=== PATIENT | male | born 1985 | race Caucasian/White ===

== ENCOUNTER 2020-01-21 12:18 | Emergency (ER) | payer OTHER, MEDICAID, SELFPAY ==
[2019-11-10 13:48] VITALS: BMI 23.7
[2020-01-21 12:21] VITALS: BP 128/78; PULSE 84; RESP 16; TEMP 36.7; O2SAT 100; BMI 22.1
--- NOTE | 2020-01-21 12:41 | CT_ITS ---
STUDY: CT BRAIN WITHOUT CONTRAST REASON FOR EXAM: Male, 34 years old. HEADACHE, SPACED OUT X 2 DAYS. H/O SEIZURES. RADIATION DOSAGE (If Supplied By Facility): CTDIvol = ( 44.99 ) mGy, DLP = ( 745.49 ) mGycm TECHNIQUE: Transaxial CT imaging of the brain was performed without administration of intravenous contrast material. Coronal and sagittal reconstructions were performed. Individualized dose optimization techniques were used for this CT. COMPARISON: None. FINDINGS: Normal soft tissue structures. Normal calvarium. Normal size ventricles and extra-axial spaces for the patient''s age. Normal white matter tracts of the cerebral hemispheres. Normal basal ganglia and thalami. Normal brainstem. Normal cerebellum. There is no intracranial hemorrhage. There are no findings of an acute ischemic infarction. 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 CT/Brain/Head without Contrast IMPRESSION: 1. Normal unenhanced CT scan of the brain. 2. 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 Electronically Signed: Holden Salvador MD at 13:32 EDT , Service support ,
--- NOTE | 2020-01-21 12:56 | ED.VIS.GEN ---
History of Present Illness Chief Complaint: Headache Informant: Patient, Significant Other Narrative: 34-year-old male with past medical history of TBI and epilepsy presents with concern for headache. States that over the past 2 to 3 days he has had a headache which she describes as diffuse and intermittent. Denies any vision change or neck pain. Denies any fever or chills. That his has told him that he is also been spacey. States that in the past his antiseizure medication has been the cause of these symptoms. Spoke with his neurologist Dr. Stanley in [place] about this earlier in the week who advised him that if he had continued symptoms he should follow at an urgent care or emergency department. Past Medical History - Allergies and Home Meds Allergies/Adverse Reactions: Allergies carbamazepine Allergy (Verified 01/21/20 12:21) NEEDS FOLLOW-UP NSAIDS (Non-Steroidal Anti-Inflamma Allergy (Verified 01/21/20 12:21) Upset Stomach phenytoin Allergy (Verified 01/21/20 12:21) NEEDS FOLLOW-UP topiramate Allergy (Verified 01/21/20 12:21) NEEDS FOLLOW-UP LOXAGATE SODIUM Allergy (Uncoded 01/21/20 12:21) NEEDS FOLLOW-UP Primary Care Physician: Bruce Lin MD [STAFF PHYSICIAN] - As soon as possible Past Medical History: - - Epilepsy Surgical History: no surgical history Lives: Spouse/ Significant Other Smoking Status: Current every day smoker Alcohol: None Drugs: None Review of Systems General: Denies: Chills, Fever, Sweats Eyes: Denies: Visual changes - bilaterally, Diplopia ENT: Denies: Rhinorrhea, Sore throat Cardiovascular: Denies: Chest pain, Palpitations Respiratory: Denies: Dyspnea, Cough, Dyspnea on exertion Gastrointestinal: Denies: Abdominal pain, Nausea, Vomiting, Diarrhea, Melena, Hematochezia Genitourinary: Denies: Dysuria, Hematuria, Frequency Musculoskeletal: Denies: Back pain, Extremity Pain Skin: Denies: Rash, Wounds Neurological: Reports: Headache. Denies: Weakness, Numbness Physical Exam Vital Signs/Narrative: Vital Signs Temp Pulse Resp BP Pulse Ox 01/21/20 12:21 98.1 F 84 16 128/78 H 100 General: Well nourished, Well developed, No Acute Distress Head: Normocephalic, Atraumatic Eyes: Perrl, EOMI ENT: Moist mucous membranes, No rhinorrhea Neck: Supple, Nontender Cardiovascular: Regular rate, Regular rhythm, No murmurs Respiratory: No distress, CTA bilaterally, Chest nontender Abdomen: Soft, Nontender, Nondistended, Normal bowel sounds Back: Nontender, Normal Inspection Extremities: Nontender, No edema Skin: Normal color, No rash Neurological: Alert, Oriented x3, Cranial nerves II-XII grossly intact, Normal Strength, Normal Sensation Psychological: Normal affect, Normal Mood Diagnostic/Tx/Re-eval Clinical Impression(s) from Imaging Studies Brain CT 01/21/20 12:41 IMPRESSION: 1. Normal unenhanced CT scan of the brain. 2. 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 Electronically Signed: Holden Salvador MD at 13:32 EDT , Service support , Laboratory Data 01/21/20 01/21/20 13:10 13:10 WBC 7.9 RBC 4.84 Hgb 15.9 Hct 46.1 MCV 95.2 H MCH 32.9 H MCHC 34.5 RDW Std Deviation 41.6 RDW Coeff of Glenny 12.1 Plt Count 200 MPV 9.7 Immature Gran % (Auto) 0.300 Neut % (Auto) 74.9 H Lymph % (Auto) 16.3 L [place] % (Auto) 6.8 Eos % (Auto) 1.4 Baso % (Auto) 0.3 Absolute Neuts (auto) 5.9 Absolute Lymphs (auto) 1.29 Nucleated RBC % 0 Sodium 139 Potassium 3.4 L Chloride 109 H Carbon Dioxide 26.0 Anion Gap 4 L BUN 12 Creatinine 1.21 Estim Creat Clear Calc 89.11 Est GFR (MDRD) Af Amer 87 Est GFR (MDRD) Non-Af 72 BUN/Creatinine Ratio 9.9 L Glucose 96 Calcium 8.7 Magnesium 2.2 - Medical Decision Making Patient appears well nontoxic. No focal neurologic deficit. CT brain negative. Lab work within normal limits. Spoke with neurologist on-call for Dr. Tse who is near [place]. She stated that based upon their records he had called 1 month ago asking for a new neurologist in the area which he lives now, [place]. Patient does confirm this on further discussion. Patient has been taking Tylenol at home. He cannot take NSAIDs because it upsets his stomach. I did advise him to take Tylenol 3 times a day for the next 3 days. I advised him on continued p.o. hydration. Patient has adequate supply of Keppra as well as zonisamide. I did give him neurologic follow-up in the area and asked him to return if there is any concern for breakthrough seizures. Patient was agreeable this plan and was discharged home in stable condition. ED Disposition - Plan for ED Patient: Disposition: Home or Assisted Living Diagnosis: Headache, History of seizure disorder Instructions: ED Headache Unspecified Referrals: Bruce Lin MD [STAFF PHYSICIAN] - As soon as possible
[2020-01-21 13:30] LABS: Absolute Lymphocyte Count 1.29 X10^3/uL (0.83-4.51); Absolute Neutrophil Count 5.9 X10^3/uL (2.0-7.7); Basophil# 0.02 X10^3/uL; Basophil% 0.3 % (0-1); Eosinophil# 0.11 X10^3/uL; Eosinophils% 1.4 % (0-5); Hematocrit 46.1 % (40-54); Hemoglobin 15.9 g/dL (13.0-16.5); Lymphocyte # 1.29 X10^3/ul (4.0); Lymphocyte % 16.3 % (19-41); Mean Corp Hgb Conc 34.5 g/dL (32-36); Mean Corpuscular Hgb 32.9 pg (27.0-32.0); Mean Corpuscular Volume 95.2 fL (80-94); Mean Platelet Vol. 9.7 fl (6.2-12.0); Monocyte# 0.54 X10^3/uL; Monocyte% 6.8 % (0-10); NRBC Flagged by Analyzer 0 % (0-5); Neutrophil # 5.91 X10^3/uL (2.7-7.7); Neutrophil % 74.9 % (47-70); Platelet Count 200 K/mm3 (150-450); RBC Distribution Width CV 12.1 % (11.6-14.6); RBC Distribution Width SD 41.6 fl (35.1-43.9); Red Blood Count 4.84 M/mm3 (4.6-6.2); White Blood Count 7.9 K/mm3 (4.4-11.0)
[2020-01-21 13:40] LABS: Anion Gap 4 (5-15); BUN 12 mg/dL (7-18); BUN/Creat Ratio 9.9 RATIO (10-20); Calcium,Total 8.7 mg/dL (8.5-10.1); Chloride 109 mmol/L (98-107); Creatinine, Serum 1.21 mg/dL (0.70-1.30); EST Glomerular Filtration Rate 72 mL/min (>60); Est Glom Filt Rate - Afr Amer 87 mL/min (>60); Estimated Creatinine Clearance 89.11 ml/min; Glucose 96 mg/dL (74-106); Magnesium 2.2 mg/dL (1.6-2.6); Potassium 3.4 mmol/L (3.5-5.1); Sodium Level 139 mmol/L (136-145)
--- NOTE | 2020-01-21 14:02 | NURSING ---
ATTEMPTING TO REACH DR [place] [phone]
[2020-01-21 14:47] VITALS: BP 110/73; PULSE 73; RESP 16; O2SAT 99
== END 2020-01-21 14:48 | disposition home or self-care (01) ==
PROVIDERS: Emergency Provider Emergency Medicine
DX: R51 Headache (principal); F17.200 Nicotine dependence, unspecified, uncomplicated
CPT/HCPCS: 70450; 80048; 83735; 85025; 99283; A4216

== ENCOUNTER 2020-04-06 23:32 | Observation (INO) | payer OTHER, MEDICAID, SELFPAY ==
[2020-04-06 23:33] VITALS: BP 115/81; PULSE 80; RESP 16; TEMP 37.1; O2SAT 98; BMI 21.5
[2020-04-06 23:35] VITALS: BMI 21.5
--- NOTE | 2020-04-06 23:45 | CT_ITS ---
STUDY: CT BRAIN WITHOUT CONTRAST REASON FOR EXAM: Male, 35 years old. HX SEIZURE DISORDER, STARTED KLONOPICIN FRIDAY AND NOW STUTTERING RADIATION DOSAGE (If Supplied By Facility): CTDIvol = ( 44.99 ) mGy, DLP = ( 779.24 ) mGycm TECHNIQUE: Transaxial CT imaging of the brain was performed without administration of intravenous contrast material. Individualized dose optimization techniques were used for this CT. COMPARISON: CT head from 01/21/2020 FINDINGS: There is a round partially calcified rounded hypodensity in the left lateral scalp likely sebaceous cyst. Normal calvarium. Normal size ventricles and extra-axial spaces for the patient''s age. Normal white matter tracts of the cerebral hemispheres. Normal basal ganglia and thalami. Normal brainstem. Normal cerebellum. There is no intracranial hemorrhage. There are no findings of an acute ischemic infarction. There is mucosal retention cyst in the posterior right maxillary sinus. CT/Brain/Head without Contrast IMPRESSION: Negative unenhanced CT scan of the brain for acute intracranial abnormality. Electronically Signed: Joseph Jose, at 0:11 EDT Tel , Service support ,
[2020-04-06 23:52] LABS: Absolute Lymphocyte Count 2.07 X10^3/uL (0.83-4.51); Absolute Neutrophil Count 4.2 X10^3/uL (2.0-7.7); Basophil# 0.03 X10^3/uL; Basophil% 0.4 % (0-1); Eosinophil# 0.18 X10^3/uL; Eosinophils% 2.6 % (0-5); Hematocrit 44.5 % (40-54); Hemoglobin 15.6 g/dL (13.0-16.5); Lymphocyte # 2.07 X10^3/ul (4.0); Lymphocyte % 29.4 % (19-41); Mean Corp Hgb Conc 35.1 g/dL (32-36); Mean Corpuscular Hgb 33.2 pg (27.0-32.0); Mean Corpuscular Volume 94.7 fL (80-94); Mean Platelet Vol. 9.6 fl (6.2-12.0); Monocyte# 0.56 X10^3/uL; NRBC Flagged by Analyzer 0 % (0-5); Neutrophil # 4.16 X10^3/uL (2.7-7.7); Neutrophil % 59.2 % (47-70); Platelet Count 205 K/mm3 (150-450); RBC Distribution Width CV 11.6 % (11.6-14.6)
[2020-04-07] VITALS (12 sets, daily range): BP systolic 94–120; BP diastolic 62–76; PULSE 60–76; RESP 14–18; TEMP 36.4–37.1; O2SAT 94–99; BMI 20.7
[2020-04-07 00:03] LABS: Anion Gap 5 (5-15); BUN 11 mg/dL (7-18); BUN/Creat Ratio 9.6 RATIO (10-20); Chloride 112 mmol/L (98-107); Creatinine, Serum 1.15 mg/dL (0.70-1.30); EST Glomerular Filtration Rate 77 mL/min (>60); Est Glom Filt Rate - Afr Amer 93 mL/min (>60); Estimated Creatinine Clearance 92.95 ml/min; Glucose 94 mg/dL (74-106); Potassium 3.9 mmol/L (3.5-5.1); Sodium Level 142 mmol/L (136-145)
--- NOTE | 2020-04-07 00:10 | ED.VISSUMM ---
- ER Visit Summary Date of Service: 04/07/20 Chief Complaint: [Stuttering speech] History of Present Illness: The patient is a 35 M [presents to the emergency department with stuttering speech since he had a episode last night around midnight. The fianc? states that patient sat on the edge of the bed and was picking at his hand and became less responsive. Patient started to have stuttering speech. Today the patient spoke with his sister who then called EMS for him because of the speech difficulty. Patient has never had symptoms like this before. He does describe a headache but is had no head trauma. He denies nausea or vomiting. He denies photophobia. He denies recent illness. He does have seizure history and is currently on zonisamide as well as Keppra. Patient was started on Klonopin 1 week ago because he had an episode on March 10 where he was less responsive than usual and was unclear if he had had a seizure at that time. Patient has history of focal partial seizures. Patient has history of PTSD. No family history of brain tumors or aneurysms.] Physical Examination: [HEENT-PERRLA, EOMI. Cranial nerves II through XII grossly intact. TMs clear. Mucous membranes moist. No adenopathy. Cardiovascular-regular rate and rhythm without murmur or ectopy Lungs-clear to auscultation, chest wall stable without crepitus or subcu emphysema Abdomen-normoactive bowel sounds, soft, nontender, no rebound or rigidity, no peritoneal signs. Neuro [id number]-[id number] and heel mauro testing within normal limits, negative Romberg, negative , Fundi benign. Patient does have stuttering speech but is appropriate. Extremities-intact ?4, normal range of motion, normal pulses, atraumatic] Test Results: [CBC with it was normal. Chemistries unremarkable. CT scan of the brain was unremarkable.] Emergency Department Course and Treatment: [Case was discussed with hospitalist who asked that I obtain a neurology consult. Tele-neurology consult was obtained and recommendations made by tele-neurologist to admit and obtain EEG and MRI in the morning and continue current home meds minus the Klonopin. It is possible patient may be having conversion type disorder versus atypical seizure versus other.] Treatment Plan: [Admit] Disposition: [Admit] Impression: [Dysarthria/stuttering History of seizure disorder] This note was generated with [employer] dictation software. It may contain incorrect words, spelling, and punctuation that were not noted in review of the chart prior to signing ED Disposition - Plan for ED Patient: Referrals: Davian Sheldon MD [Primary Care Provider] -
--- NOTE | 2020-04-07 00:25 | PCM.HP.STD ---
Problem List (1) Dysarthria Status: Acute (2) Epilepsy Status: Acute History of Present Illness Date of Admission: 04/07/20 Chief Complaint: Stuttering The patient is a 35 year old M with a significant history of PTSD; bipolar disorder; and anxiety who to the [facility] emergency department with stuttering that started one day before presentation. His symptoms started after he had an episode where he was repeatedly pinching the skin of his dorsal hand; and also he had some twitching of his face. Patient was on 2 seizure medications of Keppra and zonisamide. His intent was to stop Keppra because of Keppra rage. While on Keppra and zonisamide patient's reportedly had a seizure on March 10, 2020. So his neurologist that he has seen for about [address] Roel Tse at [facility] started him on clonazepam as the neurologist felt that his seizure might of been anxiety and insomnia induced. However reportedly patient was sleeping good before Keppra was started. Patient's rossy is a hospice nurse and with patient stuttering she advised patient to stop taking his Klonopin as it is the newest addition to his medication regimen. Patient pulled his medical history, MyChart on his cell phone and it listed a history of dysarthria. However reportedly patient has not had extensive stuttering like this. 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 Past Medical History Medical History: Medical History (Last Updated 04/07/20 @ 01:[address] Migue Diane MD) Epilepsy G40.909 Allergies carbamazepine Allergy (Verified 04/06/20 23:43) NEEDS FOLLOW-UP NSAIDS (Non-Steroidal Anti-Inflamma Allergy (Verified 04/06/20 23:43) Upset Stomach phenytoin Allergy (Verified 04/06/20 23:43) NEEDS FOLLOW-UP topiramate Allergy (Verified 04/06/20 23:43) NEEDS FOLLOW-UP LOXAGATE SODIUM Allergy (Uncoded 01/21/20 12:21) NEEDS FOLLOW-UP Home Medications: Ambulatory Orders Medication Instructions Recorded Clonazepam 0.5 mg PO QHS 04/06/20 Levetiracetam 1,500 mg PO BID 04/06/20 Zonisamide [Zonegran] 200 mg PO BID 04/06/20 Surgical History: appendectomy, cholecystectomy Smoking Status: Current every day smoker Tobacco Use: Cigarettes, Chew - *Family History Paternal History Items: Heart Disease, - - His father had epilepsy; diabetes and heart disease. Maternal History Items: - - Patient was adopted and does not know maternal medical history. Review of Systems Constitutional: Denies: Chills, Fever, Weight Change HEENT: Denies: Head Aches, Sinus Congestion, Sinus Drainage Cardiovascular: Denies: Chest Pain, Palpitations Respiratory: Denies: Cough, Shortness of breath at rest, Sputum production Gastrointestinal: Denies: Abdominal Pain, Nausea, Vomiting Genitourinary: Denies: Dysuria Musculoskeletal: Denies: Joint Pain, Joint Tenderness Skin: Denies: Rash, Wounds Neurological: Reports: Change in Speech, Seizures. Denies: Focal weakness, Numbness, Tingling Psychiatric: Denies: Anxiety, Depression, Homicidal Ideations, Suicidal Ideations Hematologic/ Lymphatic: Denies: Easy Bruising, Easy Bleeding VTE Information - Inpt Only VTE Present on Admission: No VTE Mechan Device Prophylaxis: None VTE Pharm Prophylaxis ordered?: No Reason prophylaxis not ordered:: Treatment Not Indicated - Low risk encourage ambulate Patient Problems: Active and Suspected Problems (Last Updated 04/07/20 @ 01:[address] Migue Diane MD) Dysarthria (Acute) Epilepsy (Acute) - Physical Exam Vitals/I&O's: Vital Signs Temp Pulse Resp BP Pulse Ox 98.7 F 80 16 115/81 H 98 04/06/20 23:33 04/06/20 23:33 04/06/20 23:33 04/06/20 23:33 04/06/20 23:33 Oxygen Delivery Method Room Air Weight: 74 kg Body Mass Index (BMI) 21.5 General: Alert, Oriented x3, Cooperative HEENT: Atraumatic, PERRLA, EOMI, Normocephalic Neck: Supple, No JVD, Negative Carotid Bruits Lungs: Clear to auscultation, Normal air movement Cardiovascular: Regular rate, Regular Rhythm, Normal S1, Normal S2, No murmurs Abdomen: Bowel Sounds Present, Soft, Non Tender Extremities: No edema, Capillary Refill Less than 3 Seconds Skin: No rashes, No breakdown Musculoskeletal: No Tenderness to Palpation of Joints or Extremities Neurological: Cranial nerves II-XII grossly intact - Except the patient has dysarthria, Deep Tendon Reflexes 2+/4 and Symmetrical, Motor Exam 5/5 strength throughout, Muscle tone normal, Coordination normal Psych/Mental Status: Normal Affect, Appropriate Laboratory Results 04/06/20 23:37: WBC 7.0, RBC 4.70, Hgb 15.6, Hct 44.5, MCV 94.7 H, MCH 33.2 H, MCHC 35.1, RDW Std Deviation 40.0, RDW Coeff of Glenny 11.6, Plt Count 205, MPV 9.6, Immature Gran % (Auto) 0.400, Neut % (Auto) 59.2, Lymph % (Auto) 29.4, [place] % (Auto) 8.0, Eos % (Auto) 2.6, Baso % (Auto) 0.4, Absolute Neuts (auto) 4.2, Absolute Lymphs (auto) 2.07, Nucleated RBC % 0 04/06/20 23:37: Sodium 142, Potassium 3.9, Chloride 112 H, Carbon Dioxide 25.0, Anion Gap 5, BUN 11, Creatinine 1.15, Estim Creat Clear Calc 92.95, Est GFR (MDRD) Af Amer 93, Est GFR (MDRD) Non-Af 77, BUN/Creatinine Ratio 9.6 L, Glucose 94, Calcium 9.0 Current Medications Sodium Chloride () 1,000 mls @ 15 mls/hr IV .Q48H [id number] Assessment/Plan All Active Problems (Last Updated 04/07/20 @ 01:[address] Migue Diane MD) Dysarthria (Acute) Epilepsy (Acute) The patient is a 35 year old M with a significant history of PTSD; bipolar disorder; and anxiety who presents emergency department with stuttering. Dysarthria Discussed emergency department doctor to consult tele-neurologist. Per discussion with emergent department doctor and a tele-neurologist probable patient may be having a conversion disorder. Recommendation was to continue home Zonisamide and Keppra and to hold off Klonopin. Per neurologist recommendation will obtain EEG and MRI. CT of the head at emergency department was unremarkable. Epilepsy Continue home zonisamide and Keppra. Tobacco abuse Smokes and chew tobacco. Counseled. Nicotine patch ordered. DVT prophylaxis Low risk Encourage ambulate. OBSV E&M: 50211 Initial observation care L3
--- NOTE | 2020-04-07 00:37 | TELEMED_ITS ---
[facility] has confirmed receipt of a request for visit. This document confirms receipt of the order initiating the consult. To find the results of the consultation, please view the patient's reports for the scanned Telemed Consult.
--- NOTE | 2020-04-07 02:13 | MRI_ITS ---
STUDY: MRI BRAIN WITHOUT CONTRAST REASON FOR EXAM: Male, 35 years old. Dysarthria, H/O PTSD, ANXEITY, BIPOLAR TECHNIQUE: Standardized multiplanar fat and water weighted pulse sequences were obtained. COMPARISON: CT 04/06/2020 FINDINGS: Normal size of the ventricles and extra-axial spaces for the patient''s age. Normal white matter tracts of the supratentorial brain. There is no evidence for recent intracranial ischemia or other cause of cytotoxic edema on diffusion weighted imaging (DWI). Normal T2* images of the brain without demonstrated susceptibility artifact. There is no demonstrated hemosiderin stain. Normal bilateral basal ganglia. Normal thalami. There is no extra-axial fluid accumulation. Normal flow voids within the major intracranial circulation suggesting patency by spin echo criteria. Normal sella turcica, pituitary gland, infundibular stalk, optic chiasm and hypothalamus. Normal tectal plate and pineal gland. Normal midbrain, jaci and medulla. Normal cerebellum. Normal basal cisterns. Normal bilateral temporal bones. Normal bilateral internal auditory canals. No demonstrated orbital abnormality, within the constraints of a routine brain study. Mucous retention cyst in the floor the right x-ray sinus consistent with chronic sinusitis. Normal calvarium and skull base. Normal visualized soft tissue structures. Normal visualized upper cervical spine. MRI/Brain without Contrast IMPRESSION: Normal unenhanced MRI of the brain. Electronically Signed: Kennedy Razo MD at 10:32 EDT Tel , Service support ,
[2020-04-07] MEDS: 0.9% Saline Lock 10 ML Syringe IV (08:46)
[2020-04-07] MEDS: diazePAM 5 MG Tablet PO (08:46)
--- NOTE | 2020-04-07 09:03 | NURSING ---
Report called to rotary pump operator Jory. Informed of po valium given to help pt tolerate MRI and will be going down to radiology within a few minutes. Reviewed VS. Per Jory ERVIN, she will meet pt in MRI.
[2020-04-07] MEDS: ZONISAMIDE 100 MG CAPSULE 200 MG PO (10:04)
[2020-04-07] MEDS: levETIRAcetam 750 MG Tablet 1500 MG PO (10:04)
--- NOTE | 2020-04-07 10:30 | NURSING ---
changed into gown and pants, pt is calm and has a flat affect. did answer questions appropriately
--- NOTE | 2020-04-07 10:33 | NURSING ---
patient tolerating well, listening to music
--- NOTE | 2020-04-07 10:38 | NURSING ---
tolerated well, procedure done at 0952 tolerated well, able to walk to the cart/bed, report called to Dinora Luz floor nurse
--- NOTE | 2020-04-07 16:31 | DCINST_ITS ---
- Discharge Diagnoses Current Active Problems: Current Active and Chronic Problems (Last Updated 04/07/20 @ 01:[address] Migue Diane MD) Dysarthria (Acute) Epilepsy (Acute) You will use the following diet at home:: Regular Your food should be the consistency of: Regular Your liquids should be the consistency of: Regular/Thin Discharge Activity: Return to Normal Activity Call your doctor if you observe: Fever of 101 or Higher, Shortness of breath, Dizziness, Fainting spells, Swelling in the ankles, Chest pain, Increased palpitations (irregular heartbeat) Allergies/Adverse Reactions: Allergies carbamazepine Allergy (Verified 04/06/20 23:43) NEEDS FOLLOW-UP NSAIDS (Non-Steroidal Anti-Inflamma Allergy (Verified 04/06/20 23:43) Upset Stomach phenytoin Allergy (Verified 04/06/20 23:43) NEEDS FOLLOW-UP topiramate Allergy (Verified 04/06/20 23:43) NEEDS FOLLOW-UP LOXAGATE SODIUM Allergy (Uncoded 01/21/20 12:21) NEEDS FOLLOW-UP Medications to take at Discharge Clonazepam 0.5 mg PO QHS 04/06/20 Levetiracetam 1,500 mg PO BID 04/06/20 Zonisamide [Zonegran] 200 mg PO BID 04/06/20 Omeprazole 20 mg PO DAILY 04/07/20 Primary Care Physician: Davian Sheldon MD [Primary Care Provider] - Please follow up with your Primary Care Physician in: 3-5 days Test Results: Test results from this visit will be discussed in further detail at your follow- up appointment, if applicable. Please Follow Up With: Neurology When: 1-2 weeks Please Follow Up With: Psychiatry When: 1-2 weeks
--- NOTE | 2020-04-07 17:19 | DS.PCM_ITS ---
Discharge Date and Diagnosis Date of Admission: 04/07/20 Date of Discharge: 04/07/20 Hospital Course and Treatment Imaging Results: Clinical Impression(s) from Imaging Studies Brain CT 04/06/20 23:45 IMPRESSION: Negative unenhanced CT scan of the brain for acute intracranial abnormality. Electronically Signed: Joseph Rebeca, at 0:11 EDT Tel , Service support , Brain MRI 04/07/20 02:13 IMPRESSION: Normal unenhanced MRI of the brain. Electronically Signed: Kennedy Razo MD at 10:32 EDT Tel , Service support , Operations: None Procedures: Electroencephalogram Summary of Care Provided: Per HPI: The patient is a 35 year old M with a significant history of PTSD; bipolar disorder; and anxiety who to the [facility] emergency department with stuttering that started one day before presentation. His symptoms started after he had an episode where he was repeatedly pinching the skin of his dorsal hand; and also he had some twitching of his face. Patient was on 2 seizure medications of Keppra and zonisamide. His intent was to stop Keppra because of Keppra rage. While on Keppra and zonisamide patient's reportedly had a seizure on March 10, 2020. So his neurologist that he has seen for about [address] Roel Tse at [facility] started him on clonazepam as the neurologist felt that his seizure might of been anxiety and insomnia induced. However reportedly patient was sleeping good before Keppra was started. Patient's gilda? is a hospice nurse and with patient stuttering she advised patient to stop taking his Klonopin as it is the newest addition to his medication regimen. Patient pulled his medical history, MyChart on his cell phone and it listed a history of dysarthria. However reportedly patient has not had extensive stuttering like this. 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 Hospital Course: 1. Dysarthria/epilepsy/RTMD-56-tyhh-old male with history of PTSD, possible bipolar disorder and anxiety with also epilepsy presents to the hospital with stuttering. Per the he started stuttering with the addition of Klonopin to his regimen. [facility] neurology was consulted in the ER and they felt that an MRI and an EEG should be obtained. If these 2 were normal then he likely had conversion disorder from his his mood disorders and should see psychiatry. His CT of the brain was unremarkable, his MRI was a normal unenhanced brain MRI, and the EEG was consistent with somebody on a benzo. I discussed the findings with him and his and the possibility of conversion disorder and explained what conversion disorder was they were relieved that it was not something more concerning. We discussed that he needs to follow-up with his neurologist but also recommended following up with psychiatry to be on some mood stabilizers to help with the conversion disorder and also to start undergoing therapy again for his PTSD and bipolar disorder. I discussed the plan for discharge with him and his , and they both expressed understanding of the risks and benefits of going home and would like to go home today. - Physical Exam Vitals/I&O's: Vital Signs Temp Pulse Resp BP Pulse Ox 98.7 F 71 14 97/63 97 04/07/20 11:45 04/07/20 15:00 04/07/20 11:45 04/07/20 11:45 04/07/20 11:45 Oxygen Delivery Method Room Air Weight: 157 lb 3.033 oz Body Mass Index (BMI) 20.7 Intake and Output for Last 24 Hours 04/05/20 04/06/20 04/07/20 23:59 23:59 23:59 Intake Total 600 / 600 Balance 600 / 600 General: Alert, Oriented x3, Cooperative, No apparent distress HEENT: Atraumatic, PERRLA, EOMI, Normocephalic Oral: Moist Mucosa Neck: Supple, No JVD Lungs: Clear to auscultation, Normal air movement, No rhonchi, No wheeze, No rales Cardiovascular: Regular rate, Regular Rhythm, Normal S1, Normal S2, No murmurs Abdomen: Soft, Non Tender, Non-Distended, No Hepato-splenomegaly Extremities: No edema, Capillary Refill Less than 3 Seconds Skin: No rashes, No breakdown Neurological: Neuro grossly intact, Sensory exam intact to light touch and pain, - - Stuttering Psych/Mental Status: Normal Affect, Appropriate Laboratory Results 04/06/20 23:37: WBC 7.0, RBC 4.70, Hgb 15.6, Hct 44.5, MCV 94.7 H, MCH 33.2 H, MCHC 35.1, RDW Std Deviation 40.0, RDW Coeff of [place]enny 11.6, Plt Count 205, MPV 9.6, Immature Gran % (Auto) 0.400, Neut % (Auto) 59.2, Lymph % (Auto) 29.4, [place] % (Auto) 8.0, Eos % (Auto) 2.6, Baso % (Auto) 0.4, Absolute Neuts (auto) 4.2, Absolute Lymphs (auto) 2.07, Nucleated RBC % 0 04/06/20 23:37: Sodium 142, Potassium 3.9, Chloride 112 H, Carbon Dioxide 25.0, Anion Gap 5, BUN 11, Creatinine 1.15, Estim Creat Clear Calc 92.95, Est GFR (MDRD) Af Amer 93, Est GFR (MDRD) Non-Af 77, BUN/Creatinine Ratio 9.6 L, Glucose 94, Calcium 9.0 Discharge Activity: Return to Normal Activity Call your doctor if you observe: Fever of 101 or Higher, Shortness of breath, Dizziness, Fainting spells, Swelling in the ankles, Chest pain, Increased palpitations (irregular heartbeat) Home Medications: Medications to take at Discharge Clonazepam 0.5 mg PO QHS 04/06/20 Levetiracetam 1,500 mg PO BID 04/06/20 Zonisamide [Zonegran] 200 mg PO BID 04/06/20 Omeprazole 20 mg PO DAILY 04/07/20 Primary Care Physician: Davian Sheldon MD [Primary Care Provider] - Please follow up with your Primary Care Physician in: 3-5 days Please Follow Up With: Neurology When: 1-2 weeks Please Follow Up With: Psychiatry When: 1-2 weeks Disposition: Home Minutes spent on discharge:: 35 Patient Condition:: Stable Medical Necessity - Tobacco Use Smoking Status: Current every day smoker Tobacco Use: Cigarettes Meaningful Use Info Meaningful Use Diagnoses (Choose all that apply): None applicable OBSV E&M: 66005 Observ/hosp same date L2
== END 2020-04-07 16:32 | disposition home or self-care (01) ==
LOC: ED 23:51 → PCU 04-07 01:50
PROVIDERS: Admitting Provider Hospitalist; Emergency Provider Emergency Medicine; PCP Family Medicine; Visit Provider Family Medicine
DX: R47.1 Dysarthria and anarthria (principal); F31.9 Bipolar disorder, unspecified; F43.10 Post-traumatic stress disorder, unspecified; Z79.899 Other long term (current) drug therapy; G40.909 Epilepsy, unspecified, not intractable, without status epilepticus; F17.210 Nicotine dependence, cigarettes, uncomplicated; F17.220 Nicotine dependence, chewing tobacco, uncomplicated
CPT/HCPCS: 70450; 70551; 80048; 85025; 95819; 99218; 99284; 99406; A4216; G0378

== ENCOUNTER 2020-06-06 10:30 | Outpatient (RCR) | payer MEDICAID, SELFPAY ==
[2020-04-07 02:14] VITALS: BMI 20.7
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
--- NOTE | 2020-06-14 11:46 | HP.SP.DC ---
ST Discharge Summary - Discharged: Discharge: Rickey Lala is discharged from [facility] speech therapy as of 06/06/20. His initial evaluation was on 04/26/20 for fluency disorder following seizure. Initially his dysfluency was severe and on nearly ever word. The focus of therapy was on fluency enhancing and stuttering modification strategies. When he uses his strategies, he had 80% less dysfluencies. He also stated that he no longer gets hung up on now. He is discharged as he demonstrated use of his strategies independently. A copy of this discharge will be sent to his referring physician.
== END 2020-06-06 19:00 | disposition home or self-care (01) ==
LOC: SP 10:30
PROVIDERS: PCP Family Medicine
DX: R56.9 Unspecified convulsions (principal); R47.1 Dysarthria and anarthria; F80.81 Childhood onset fluency disorder
CPT/HCPCS: 92507; 92521

== ENCOUNTER 2020-06-14 18:01 | Emergency (ER) | payer MEDICAID, SELFPAY ==
[2020-04-07 02:14] VITALS: BMI 20.7
[2020-06-14 18:02] VITALS: BP 133/88; PULSE 86; RESP 16; TEMP 36.5; O2SAT 99; BMI 24.4
--- NOTE | 2020-06-14 19:18 | CT_ITS ---
STUDY: CT ABDOMEN AND PELVIS WITH CONTRAST REASON FOR EXAM: Male, 35 years old. LEFT GROIN PAIN X 5 DAYS. PAIN UNDER SCROTUM RADIATION DOSAGE (If Supplied By Facility): CTDIvol = ( 15.55 ) mGy, DLP = ( 880.39 ) mGycm TECHNIQUE: Transaxial images were obtained from the dome of the diaphragm to the symphysis pubis without oral contrast. IV 100mL Isovue-300 was administered. Sagittal and coronal images were reconstructed. Individualized dose optimization techniques were used for this CT. COMPARISON: None. FINDINGS: Small symmetric bilateral pleural effusions. The visualized portions of the heart are within normal limits. Normal liver. There are surgical clips in the gallbladder fossa consistent with a prior cholecystectomy. Normal spleen. Normal pancreas. Normal bilateral adrenal glands. 3 mm nonobstructing stone in the lower pole of the right kidney without hydronephrosis or ureteral stones. Subcentimeter simple cyst in the lower pole of the right kidney. Multiple simple cysts of the left kidney. The largest is 1.5 cm. Otherwise normal left kidney without hydronephrosis renal or ureteral stones. Normal visualized stomach. Few mildly distended fluid-filled distal small bowel loops with nondistended mid and proximal small bowel loops. Normal colon. There are surgical clips in the region of the appendix consistent with a prior appendectomy. Normal abdominal aorta. Normal inferior vena cava. Normal retroperitoneum. Distended urinary bladder. Small bilateral hydroceles. Negative for hernia. Shotty inguinal lymph nodes. The largest on the left is 13 mm long axis. Negative for abscess or focal fluid collection in the inguinal areas. CT/Abdomen/Pelvis W IV Cont ONLY IMPRESSION: No acute bowel related findings. Negative for evidence of obstruction, perforation or inflammatory bowel changes. Few mildly dilated fluid-filled distal small bowel loops which may be only a passing liquid bolus. Negative for mesenteric change or wall thickening. Normal colon. Status post appendectomy. Normal size of the kidneys bilaterally. 3 mm nonobstructing stone in the lower pole of the right kidney and a subcentimeter simple cyst in the lower pole of the right kidney without hydronephrosis or ureteral stones. Multiple small simple cysts of the left kidney. Negative for left hydronephrosis, renal or ureteral stones. Distended urinary bladder. Shotty symmetric bilateral inguinal lymph nodes. No evidence of hernia, abscess or mass in the groin. Bilateral small hydroceles. Unremarkable liver, spleen and pancreas status post cholecystectomy. Electronically Signed: Jaqueline Phelan MD at 20:34 EST , Service support ,
--- NOTE | 2020-06-14 19:19 | US_ITS ---
STUDY: SCROTUM ULTRASOUND REASON FOR EXAM: Male, 35 years old. LT GROIN PAIN TECHNIQUE: Ultrasound evaluation of the scrotum was performed with color Doppler and static karimi-scale imaging. COMPARISON: None. FINDINGS: RIGHT TESTICLE INTRATESTICULAR: There is a normal size of the right testicle. The right testicle measures 3.6 x 3.3 x 2.4 cm. There is a homogenous echotexture. There is normal arterial and normal venous vascularity. There is no demonstrated right testicular mass or cyst. EXTRATESTICULAR: The epididymis is normal in size. The epididymis head measures 1.1 x 0.7 x 0.5 cm. There is normal vascularity of the epididymis. There is no demonstrated epididymal cystic structure. There is moderate hydrocele There is no demonstrated varicocele. There is no demonstrated extratesticular mass or cyst. LEFT TESTICLE INTRATESTICULAR: There is a normal size of the left testicle. The left testicle measures 5.0 x 3.4 x 2.4 cm. There is a homogenous echotexture. There is normal arterial and normal venous vascularity. There is no demonstrated left testicular mass or cyst. EXTRATESTICULAR: The epididymis is normal in size. The epididymis head measures 1.0 x 0.7 x 0.7 cm. There is normal vascularity of the epididymis. 3 mm cyst of the epididymal head. There is a small hydrocele. Small varicocele. There is no demonstrated extratesticular mass or cyst. US/Testicular with Arterial Flow IMPRESSION: Normal bilateral testicles. Normal DOPPLER flow. 3 mm left epididymal cyst, head. Normal DOPPLER flow of the epididymides. Moderate hydrocele on the right and a mild hydrocele on the left. Small left varicocele. Electronically Signed: Jaqueline Phelan MD at 21:03 EST , Service support ,
--- NOTE | 2020-06-14 19:31 | ED.VISSUMM ---
- ER Visit Summary Date of Service: 06/14/20 Chief Complaint: Left groin pain History of Present Illness: The patient is a 35 M presenting with left groin pain. He states this started on June 09. [facility] He had an ultrasound which he says was unremarkable. He was started on doxycycline and [place]. He denies injury. He complains of persistent pain after running out of [place]. He called his primary care physician today and was advised to come to the ED. Physical Examination: Vitals are stable. Patient is afebrile. Alert no acute distress. HEENT exam is unremarkable. Neck is supple. Lungs are clear and equal bilaterally. Heart is regular rate and rhythm. Abdomen is soft nontender nondistended. : Tenderness inferior and posterior to left scrotum. No erythema, fluctuance, or crepitus. No testicular tenderness. Extremities are unremarkable. Skin is warm and dry. Remainder of exam is unremarkable. Emergency Department Course and Treatment: Testicular ultrasound shows normal bilateral testicles. Normal DOPPLER flow. 3 mm left epididymal cyst, head. Normal DOPPLER flow of the epididymides. Moderate hydrocele on the right and a mild hydrocele on the left. Small left varicocele. CT abdomen pelvis shows no acute bowel related findings. Negative for evidence of obstruction, perforation or inflammatory bowel changes. Few mildly dilated fluid-filled distal small bowel loops which may be only a passing liquid bolus. Negative for mesenteric change or wall thickening. Normal colon. Status post appendectomy. Normal size of the kidneys bilaterally. 3 mm nonobstructing stone in the lower pole of the right kidney and a subcentimeter simple cyst in the lower pole of the right kidney without hydronephrosis or ureteral stones. Multiple small simple cysts of the left kidney. Negative for left hydronephrosis, renal or ureteral stones. Distended urinary bladder. Shotty symmetric bilateral inguinal lymph nodes. No evidence of hernia, abscess or mass in the groin. Bilateral small hydroceles. Unremarkable liver, spleen and pancreas status post cholecystectomy. Urinalysis unremarkable. Patient is resting comfortably on reevaluation. He is given urology for outpatient follow-up. Advised return to ED for worsening complaints. Disposition: Discharge home Impression: Left groin pain This note was generated with [employer] dictation software. It may contain incorrect words, spelling, and punctuation that were not noted in review of the chart prior to signing ED Disposition - Plan for ED Patient: Instructions: ED Unknown Causes of Abdominal Pain Male Referrals: John Sosa MD [STAFF PHYSICIAN] - Antony Soriano MD [Primary Care Provider] -
[2020-06-14] MEDS: Morphine 4 MG/ML Syringe IV (19:32)
[2020-06-14] MEDS: Ondansetron 4 MG/2 ML Vial IV (19:32)
[2020-06-14 20:29] LABS: Bacteria 0 SEEN /hpf (None Seen); Mucous, Urine 0 SEEN /hpf (<or=2+); Red Blood Cells-Urine 0 SEEN /hpf (0-5); Squamous Epithelial Cells - UA 0 SEEN /hpf (0-5); White Blood Cells 0 SEEN /hpf (0-5)
[2020-06-14 20:45] LABS: Color, Urine Yellow (Yellow); Glucose, Dipstick Normal (Normal); Ketone-Dipstick Negative (Negative); Leukocyte Esterase-Dipstick Negative /ul (Negative); Nitrite-Dipstick Negative (Negative); Occult Blood-Urine Negative /ul (Negative); Protein-Dipstick Negative (Negative); Specific Gravity, Urine 1.005 (1.002-1.030); Urine Bilirubin Dipstick Negative (Negative); Urine Clarity Clear (Clear); Urine Urobilinogen Normal (Normal)
[2020-06-14] MEDS: Ketorolac 15 MG/ML Vial IV (21:57)
--- NOTE | 2020-06-14 21:57 | ED.DEP ---
ED Disposition - Plan for ED Patient: Instructions: ED Unknown Causes of Abdominal Pain Male Referrals: Antony Soriano MD [Primary Care Provider] - John Sosa MD [STAFF PHYSICIAN] -
--- NOTE | 2020-06-14 22:48 | ED.RN ---
attempted to d/c pt, pt requesting pain medication to go home with. pt informed that dr carpenter recommended taking tylenol for his pain. pt states You better get that back in here, or if there is another one here you better send them in. because there is no way in hell i am leaving without getting something for my pain. tomorrow is thanksgiving and i'll be damned if i'm going to spend it in pain and not be able to enjoy my family dr friedman made aware, pt informed she would be back to see him.
--- NOTE | 2020-06-14 22:59 | ED.DEP ---
ED Disposition - Plan for ED Patient: Instructions: ED Unknown Causes of Abdominal Pain Male Prescriptions: Hydrocodone Bitart/Apap 5-325 [[place] 5MG-325MG] 1 tab PO Q6H PRN PRN 2 Days #6 tab PRN Reason: Pain Prescription Printed Referrals: John Sosa MD [STAFF PHYSICIAN] - Antony Soriano MD [Primary Care Provider] -
[2020-06-14] MEDS: Ceftriaxone 500 MG Vial 250 MG IM (23:22)
--- NOTE | 2020-06-14 23:25 | ED.RN ---
waiting in waiting room for pinola
[2020-06-15 01:10] LABS: Chlamydia Trachomatis by PCR Negative (Negative); Neisserai gonorrhoeae by PCR Negative (Negative); Probe Check PASS; Sample Adequacy Control PASS; Specimen Processing Control PASS
== END 2020-06-14 23:29 | disposition home or self-care (01) ==
PROVIDERS: Emergency Provider Emergency Medicine; PCP Family Medicine
DX: R10.32 Left lower quadrant pain (principal)
CPT/HCPCS: 74177; 76870; 81001; 87491; 87591; 93976; 96372; 96374; 96375; 99283; Q9967; A4216; J2405

== ENCOUNTER 2020-06-28 17:44 | Emergency (ER) | payer MEDICAID, SELFPAY ==
[2020-06-28 17:45] VITALS: BP 125/62; PULSE 85; RESP 18; TEMP 36.9; O2SAT 100; BMI 25.6
--- NOTE | 2020-06-28 18:33 | CT_ITS ---
STUDY: CT ABDOMEN AND PELVIS WITHOUT CONTRAST REASON FOR EXAM: Male, 35 years old. Right flank pain. History of kidney stones with lithotripsy. Dysarthria and epilepsy. RADIATION DOSAGE (If Supplied By Facility): CTDIvol = ( 9.07 ) mGy, DLP = ( 464.36 ) mGycm TECHNIQUE: Transaxial images were obtained from the dome of the diaphragm to the symphysis pubis without oral contrast, and without intravenous contrast. Sagittal and coronal images were reconstructed. Individualized dose optimization techniques were used for this CT. COMPARISON: CT of the abdomen and pelvis, 06/14/2020. FINDINGS: The visualized lung bases are unremarkable. The visualized portions of the heart are within normal limits. Normal liver. There are surgical clips in the gallbladder fossa consistent with a prior cholecystectomy. Normal spleen. Normal pancreas. Normal bilateral adrenal glands. Right kidney is of normal size. Stable small cyst in the right lower pole. There is mild hydronephrosis. There is a 2 mm calcification at the UPJ (image 84 of series 2). The distal ureter is unremarkable. Stable cyst off the upper pole of an otherwise normal left kidney. There is a 1 mm calcification lower pole calyx. There is no hydronephrosis. Normal left ureter. Question small hiatal hernia. The stomach is otherwise unremarkable. Normal small intestine. Normal colon. There are surgical clips in the region of the appendix consistent with a prior appendectomy. Normal abdominal aorta. Normal inferior vena cava. Normal retroperitoneum. Normal urinary bladder. The prostate is normal size. There is no pelvic lymphadenopathy there is a phlebolith in left pelvis. No free air or free fluid is seen in the peritoneal cavity. Normal abdominal wall. Normal osseous structures. CT/Abdomen/Pelvis without Cont IMPRESSION: 1. Right UPJ calculus with mild obstructive uropathy. This is thought to correlate with the stone seen in the lower pole calyx on the previous study. 2. Otherwise stable findings when compared to a study of 2 weeks earlier. Electronically Signed: Bryson Ramirez DO at 19:35 EST Tel [phone], Service support ,
--- NOTE | 2020-06-28 18:34 | ED.VIS.GEN ---
History of Present Illness Chief Complaint: Flank Pain Narrative: 35-year-old male presenting with right flank pain that started this morning around 10 AM. He states he took Tylenol and laid down and his pain became worse later in the afternoon. Patient admits to seeing some hematuria as well. He has a history of kidney stones in the past x3. He states they all spontaneously passed. He is supposed to follow-up with urology but has not done this yet. Denies any fever, chills. He does have associated symptoms of nausea. - Past Medical History (1) Dysarthria Status: Chronic (2) Epilepsy Status: Chronic Past Medical History - Allergies and Home Meds Allergies/Adverse Reactions: Allergies carbamazepine Allergy (Verified 04/06/20 23:43) NEEDS FOLLOW-UP NSAIDS (Non-Steroidal Anti-Inflamma Allergy (Verified 04/06/20 23:43) Upset Stomach phenytoin Allergy (Verified 04/06/20 23:43) NEEDS FOLLOW-UP topiramate Allergy (Verified 04/06/20 23:43) NEEDS FOLLOW-UP LOXAGATE SODIUM Allergy (Uncoded 01/21/20 12:21) NEEDS FOLLOW-UP Primary Care Physician: John Sosa MD [STAFF PHYSICIAN] - Antony Soriano MD [NON-STAFF] - Prior records reviewed: Yes Past Medical History: - - Reviewed in problem list Surgical History: appendectomy, cholecystectomy Smoking Status: Current every day smoker Alcohol: None Drugs: None - Family History Paternal Family History: Reports: Heart Disease, - - His father had epilepsy; diabetes and heart disease. Maternal Family History: Reports: - - Patient was adopted and does not know maternal medical history. Review of Systems General: Denies: Chills, Fever, Sweats Eyes: Denies: Visual changes - bilaterally, Diplopia ENT: Denies: Rhinorrhea, Sore throat Cardiovascular: Denies: Chest pain, Palpitations Respiratory: Denies: Dyspnea, Cough, Dyspnea on exertion Gastrointestinal: Reports: Abdominal pain - Right flank, Nausea, Vomiting Genitourinary: Reports: Hematuria. Denies: Dysuria Musculoskeletal: Reports: Back pain - Right flank. Denies: Myalgias, Extremity Pain Skin: Denies: Rash, Abscess Neurological: Denies: Headache, Weakness Physical Exam Vital Signs/Narrative: Vital Signs Temp Pulse Resp BP Pulse Ox 06/28/20 17:45 98.4 F 85 18 125/62 H 100 General: Well nourished, Well developed, No Acute Distress Head: Normocephalic Eyes: Perrl, EOMI ENT: Moist mucous membranes, Sinus tenderness Cardiovascular: Regular rate, Regular rhythm Respiratory: No distress, CTA bilaterally Abdomen: Soft, Nondistended, Tender - Right flank pain Back: CVA tenderness - Right sided. Negative for: Spinal tenderness Skin: Normal color, No rash. Negative for: Cyanosis, Rash Neurological: Alert Psychological: Normal affect, Normal Mood Diagnostic/Tx/Re-eval Clinical Impression(s) from Imaging Studies Abdomen/Pelvis CT 06/28/20 18:33 IMPRESSION: 1. Right UPJ calculus with mild obstructive uropathy. This is thought to correlate with the stone seen in the lower pole calyx on the previous study. 2. Otherwise stable findings when compared to a study of 2 weeks earlier. Electronically Signed: Bryson Ramirez DO at 19:35 EST Tel [phone], Service support , Laboratory Data 06/28/20 06/28/20 18:55 18:55 Sodium 142 Potassium 3.9 Chloride 111 H Carbon Dioxide 26.0 Anion Gap 5 BUN 13 Creatinine 1.04 Estim Creat Clear Calc 110.97 Est GFR (MDRD) Af Amer 104 Est GFR (MDRD) Non-Af 86 BUN/Creatinine Ratio 12.5 Glucose 83 Calcium 8.5 Urine Color Yellow Urine Clarity Clear Urine pH 7.0 Ur Specific [place] 1.010 Urine Protein Negative Urine Glucose (UA) Normal Urine Ketones Negative Urine Occult Blood Negative Urine Nitrite Negative Urine Bilirubin Negative Urine Urobilinogen Normal Ur Leukocyte Esterase Negative Urine RBC 0 SEEN Urine WBC 0 SEEN Ur Squamous Epith Cells 0 SEEN Urine Bacteria 0 SEEN Urine Mucus 0 SEEN - Medical Decision Making 35-year-old male with history of kidney stones presents with right flank pain. Is found to have a 2 mm UPJ stone. He was given morphine and Zofran in the ED as well as 500 cc of IV fluids. H pain and nausea are improved. He was given a oxycodone 5 mg prior to discharge. He will be discharged home with Percocet, Zofran, Flomax. He will be given follow-up with urology. Patient stable discharge at this time. Impression: 1. 2 mm right UVJ stone ED Disposition - Plan for ED Patient: Disposition: Home or Assisted Living Instructions: ED Kidney Stone w/ Colic Prescriptions: Tamsulosin HCl [Flomax] 0.4 mg PO DAILY #7 cap Prescription Printed Oxycodone HCl/Acetaminophen [Percocet 5-325 mg Tablet] 1 ea PO Q6H PRN PRN 3 Days #12 tab PRN Reason: pain Prescription Printed Ondansetron [Zofran Odt] 4 mg PO Q8H PRN PRN #20 tab PRN Reason: Nausea Prescription Printed Referrals: Antony Soriano MD [NON-STAFF] - John Sosa MD [STAFF PHYSICIAN] -
[2020-06-28] MEDS: Morphine 4 MG/ML Syringe IV (18:54)
[2020-06-28] MEDS: Ondansetron 4 MG/2 ML Vial IV (18:54)
[2020-06-28 19:34] LABS: Bacteria 0 SEEN /hpf (None Seen); Mucous, Urine 0 SEEN /hpf (<or=2+); Red Blood Cells-Urine 0 SEEN /hpf (0-5); Squamous Epithelial Cells - UA 0 SEEN /hpf (0-5); White Blood Cells 0 SEEN /hpf (0-5)
[2020-06-28 20:00] LABS: Color, Urine Yellow (Yellow); Glucose, Dipstick Normal (Normal); Ketone-Dipstick Negative (Negative); Leukocyte Esterase-Dipstick Negative /ul (Negative); Nitrite-Dipstick Negative (Negative); Occult Blood-Urine Negative /ul (Negative); Protein-Dipstick Negative (Negative); Urine Bilirubin Dipstick Negative (Negative); Urine Clarity Clear (Clear); Urine Urobilinogen Normal (Normal)
[2020-06-28 20:03] LABS: Anion Gap 5 (5-15); BUN 13 mg/dL (7-18); BUN/Creat Ratio 12.5 RATIO (10-20); Calcium,Total 8.5 mg/dL (8.5-10.1); Chloride 111 mmol/L (98-107); Creatinine, Serum 1.04 mg/dL (0.70-1.30); EST Glomerular Filtration Rate 86 mL/min (>60); Est Glom Filt Rate - Afr Amer 104 mL/min (>60); Estimated Creatinine Clearance 110.97 ml/min; Glucose 83 mg/dL (74-106); Potassium 3.9 mmol/L (3.5-5.1); Sodium Level 142 mmol/L (136-145)
[2020-06-28] MEDS: oxyCODONE 5 MG Tablet PO (20:08)
[2020-06-28 21:01] VITALS: RESP 16
== END 2020-06-28 21:02 | disposition home or self-care (01) ==
PROVIDERS: Emergency Provider Student in an Organized Health Care Education/Training Program; PCP Family Medicine
DX: N20.1 Calculus of ureter (principal); F17.200 Nicotine dependence, unspecified, uncomplicated; G40.909 Epilepsy, unspecified, not intractable, without status epilepticus; Z87.442 Personal history of urinary calculi
CPT/HCPCS: 74176; 80048; 81001; 96374; 96375; 99284; J7030; A4216; J2405

== ENCOUNTER 2020-10-28 23:47 | Emergency (ER) | payer MEDICAID, SELFPAY ==
[2020-10-28 23:50] VITALS: BP 117/71; PULSE 67; RESP 28; TEMP 36.6; O2SAT 99; BMI 29.4
--- NOTE | 2020-10-29 | ED.VISSUMM ---
- ER Visit Summary Date of Service: 10/29/20 Chief Complaint: Dizziness History of Present Illness: The patient is a 35 M 3 of paranoid schizophrenia about a week ago he had his Seroquel dose increased. He is also had a kidney stone in the past and history of seizure disorder. Prior appendectomy and cholecystectomy. Patient states he took his meds tonight about an hour or so later he had some dizziness. No headache. No chest pain. No abdominal pain. No fever or chills. No nausea, vomiting, diarrhea or melena. He has had no recent falls or head injury. The second half of last year he had both CAT scans of the brain and MRI which were negative. Physical Examination: Middle-aged male no acute distress vital signs stable afebrile. H EENT exam unremarkable. Pupils round reactive laser motions are intact. Normal speech. No signs of trauma. No facial droop. Neck nontender no meningismus. No lymphadenopathy. Lungs clear to auscultation bilaterally. Heart regular rhythm rate about 70 no murmur. Chest wall nontender. Abdomen soft nontender. Normal bowel sounds no peritoneal signs. Patient moving all 4 extremities. Neurovascular intact. Calves are nontender without edema or cords. Back nontender. Neurologically is awake alert with no focal motor or sensory deficits. He knows day, year and month. He has normal speech. NIH score is 0. Fingertip to nose within normal limits bilaterally. No focal motor or sensory deficits. Test Results: Orthostatic vital signs done by nursing unremarkable. Nurse also ambulated the patient and he walked well. On repeat exam at 12:13 AM he is doing well. Emergency Department Course and Treatment: Patient's exam and vital signs are normal. I reviewed his recent evaluation and work-ups. He has no neurological findings. I do not think he needs a significant laboratory or imaging work-up. Is a very benign exam. We will do orthostatic vital signs and have the nurses ambulate the patient. Treatment Plan: Plenty of fluids and rest. Return if feeling worse. Follow-up with your primary care physician if not improving. Disposition: Discharge Impression: Acute dizziness of uncertain etiology History of paranoid schizophrenia History of seizure disorder This note was generated with [employer] dictation software. It may contain incorrect words, spelling, and punctuation that were not noted in review of the chart prior to signing ED Disposition - Plan for ED Patient: Referrals: Jerome Conrad MD [Primary Care Provider] -
[2020-10-29 00:03] VITALS: BP 101/55; BP 106/64; BP 108/70; PULSE 55; PULSE 68; PULSE 79
--- NOTE | 2020-10-29 00:14 | ED.DEP ---
ED Disposition - Plan for ED Patient: Disposition: Home or Assisted Living Instructions: ED Dizziness, Uncertain Cause Referrals: Jerome Conrad MD [Primary Care Provider] - 1-2 Days if not improving Additional Instructions: Your exam tonight was normal. Follow-up with your doctor if not improving. I do not think this was related to your medications.
[2020-10-29 00:33] VITALS: BP 105/59; PULSE 63; RESP 17; O2SAT 97
== END 2020-10-29 01:00 | disposition home or self-care (01) ==
LOC: ED 10-29 00:15
PROVIDERS: Emergency Provider Emergency Medicine; PCP Family Medicine
DX: R42 Dizziness and giddiness (principal); F17.200 Nicotine dependence, unspecified, uncomplicated; Z90.49 Acquired absence of other specified parts of digestive tract; Z87.442 Personal history of urinary calculi
CPT/HCPCS: 99284; A4216

== ENCOUNTER 2020-11-24 19:40 | Emergency (ER) | payer MEDICAID, SELFPAY ==
[2020-11-24 19:40] VITALS: BP 138/68; PULSE 73; RESP 18; TEMP 36.4; O2SAT 96; BMI 30.3
--- NOTE | 2020-11-24 20:38 | EDS_ITS ---
HPI History of Present Illness Chief Complaint: Flank Pain Narrative Narrative: 35-year-old male with history of kidney stones presenting with right flank pain which radiates towards the right groin. He states he last had this a couple of months ago. He states he does not have a urologist but then states that he also had a stent placed for his last kidney stone 2 months ago. He states this was at [facility]. Patient denies fever. He has nausea without vomiting. He denies change in bowel habits. [facility] Medical History (Updated 11/24/20 @ 20:15 by Deonte Sorto) Epilepsy Kidney stones PTSD (post-traumatic stress disorder) Home Medications levetiracetam 1,500 mg PO BID 04/06/20 [History Last Taken 04/06/20 08:00 1500 m g] zonisamide 200 mg PO BID 04/06/20 [History Last Taken 04/06/20 08:00 200 mg] omeprazole 20 mg PO DAILY 04/07/20 [History Last Taken 04/06/20 08:00 20 mg] buspirone 10 mg PO BID 06/14/20 [History Last Taken Unknown] mometasone-formoterol [Dulera] 1 puff IH BID 06/14/20 [History Last Taken Unknown] paroxetine HCl 10 mg PO DAILY 06/14/20 [History Last Taken Unknown] quetiapine 50 mg PO DAILY 10/29/20 [History Last Taken Unknown] quetiapine 50 mg PO QHS 10/29/20 [History Last Taken Unknown] ondansetron HCl [Zofran] 4 mg PO Q8H PRN #14 tab 11/24/20 [Rx Last Taken Unknown] Allergy/AdvReac Type Severity Reaction Status Date / Time carbamazepine Allergy NEEDS Verified 11/24/20 19:43 FOLLOW-UP NSAIDS (Non-Steroidal Allergy Upset Verified 11/24/20 19:43 Anti-Inflamma Stomach phenytoin Allergy NEEDS Verified 11/24/20 19:43 FOLLOW-UP topiramate Allergy NEEDS Verified 11/24/20 19:43 FOLLOW-UP LOXAGATE SODIUM Allergy NEEDS Uncoded 11/24/20 19:43 FOLLOW-UP Social History (Updated 11/10/19 @ 13:49 by Gunnar LIN, PA) Smoking Status: Current every day smoker ROS ROS ED Constitutional Constitutional ED: Denies chills, fever(s) or sweats Eyes Eyes: Denies blurry vision or change in vision ENT ENT ED: Denies ear pain, rhinorrhea or sore throat Cardiovascular Cardiovascular: Denies chest pain, palpitations or racing heartbeat Respiratory/Chest Respiratory/Chest: Denies cough, dyspnea or sputum Gastrointestinal Gastrointestinal: Denies abdominal pain, constipation, diarrhea or vomiting Genitourinary Genitourinary ED: Denies dysuria, hematuria or urinary frequency Musculoskeletal Musculoskeletal: Reports other Details: Right flank pain ; Denies arthralgias, myalgias or neck pain Integumentary Denies abscess, Abrasions or rash Neurologic Neurologic: Denies headache(s), paresthesias or weakness Psychiatric Psychiatric: Denies anxiety, depression, suicidal ideation or suicidal thoughts Endocrine Endocrinology: Denies polydipsia or polyuria EXAM Physical Exam Const Vital Signs: 11/24/20 19:40 Temperature 97.5 F L Temperature Source Temporal Pulse Rate 73 Respiratory Rate 18 Blood Pressure 138/68 H Blood Pressure Mean 91 Pulse Ox 96 Oxygen Delivery Method Room Air General Appearance ED: Negative for pallor HEENT Reports normocephalic, head/scalp atraumatic and moist mucous membranes Eyes PERRL and EOMs intact bilaterally Neck no lymphadenopathy and supple Chest Wall inspection of chest normal and palpation of chest normal Resp normal respiratory effort and clear to auscultation bilaterally Auscultation: Negative for rales, rhonchi or wheezes Cardio regular rate and regular rhythm GI normal to inspection, nondistended, normoactive bowel sounds and non-distended Auscultation: normoactive bowel sounds Palpation: soft Narrative: Deferred Back/Spine Back/Spine Narrative: Right CVA tenderness General Back: CVA tenderness Cervical Spine: Negative for cervical spine tenderness Extremity normal to inspection General Extremety ED: Yes edema and tenderness General Extremity: edema Neuro oriented x3 and CN's II-XII intact bilaterally Sensorium / Orientation: alert Motor Exam: strength 5/5 throughout Psych mental status grossly normal Attitude: No agitated Skin no rashes or lesions noted and no wounds General Skin Exam: Negative for jaundice or pallor MDM MDM MDM Narrative Medical decision making narrative: Patient presenting with right flank pain. He does have some mild CVA tenderness on the right side. Vital signs are stable and he is afebrile. He has a history of kidney stones previously and had to get a stent for this. He does not know the name of his urologist. Urinalysis today shows no blood in the urine. Lab work is unremarkable. CT of the abdomen pelvis without contrast does not show any kidney stones. Radiologist does note some small pleural effusions however clinically the patient is alert and awake and no respiratory distress equal breath sounds bilaterally. Patient counseled on all findings. He is given Zofran for home. He is to alternate Tylenol and ibuprofen. Patient will follow up with his urologist as needed. Impression: 1. Right flank pain Lab Data Attestation: I reviewed the patient's lab results. Labs: Laboratory Results - last 24 hr 11/24/20 11/24/20 11/24/20 20:05 20:27 20:27 WBC 8.7 RBC 4.52 L Hgb 14.7 Hct 43.1 MCV 95.4 H MCH 32.5 H MCHC 34.1 RDW Std Deviation 41.2 RDW Coeff of [place] 11.9 Plt Count 212 MPV 9.6 Immature Gran % (Auto) 0.900 Neut % (Auto) 79.1 H Lymph % (Auto) 14.1 L [place] % (Auto) 5.7 Eos % (Auto) 0.1 Baso % (Auto) 0.1 Absolute Neuts (auto) 6.8 Absolute Lymphs (auto) 1.22 Nucleated RBC % 0 Sodium 141 Potassium 3.4 L Chloride 112 H Carbon Dioxide 23.0 Anion Gap 6 BUN 11 Creatinine 1.13 Estim Creat Clear Calc 102.13 Est GFR (MDRD) Af Amer 94 Est GFR (MDRD) Non-Af 78 BUN/Creatinine Ratio 9.7 L Glucose 91 Calcium 8.6 Urine Color Yellow Urine Clarity Clear Urine pH 6.0 Ur Specific [place] 1.015 Urine Protein 15 H Urine Glucose (UA) Normal Urine Ketones Negative Urine Occult Blood Negative Urine Nitrite Negative Urine Bilirubin Negative Urine Urobilinogen Normal Ur Leukocyte Esterase Negative Urine RBC 0 SEEN Urine WBC 0 SEEN Ur Squamous Epith Cells 0 SEEN Urine Bacteria 0 SEEN Urine Mucus 0 SEEN Radiography Diagnostic Testing: Radiology Impression Abdomen/Pelvis CT 11/24/20 21:11 IMPRESSION: No definite acute abnormality in the abdomen or pelvis. Small nonobstructing stone of the left lower pole. Bilateral small pleural effusions. Electronically Signed: Brayan Lyman MD at 21:51 EDT , Service support , Discharge Plan Triage Chief Complaint: Flank Pain ED Provider: Antoine Nava Dx/Rx/DC Orders Instructions: ED Flank Pain, Uncertain Cause Prescriptions: New ondansetron HCl [Zofran] 4 mg tablet 4 mg PO Q8H PRN (Reason: nausea and vomiting) Qty: 14 RF: 0 No Action zonisamide 100 MG capsule 200 mg PO BID RF: 0 levetiracetam 750 MG tablet 1,500 mg PO BID RF: 0 omeprazole 20 MG capsule,delayed release(DR/EC) 20 mg PO DAILY RF: 0 buspirone 5 MG tablet 10 mg PO BID RF: 0 paroxetine HCl 10 MG tablet 10 mg PO DAILY RF: 0 Dulera 8.8 GM HFA aerosol inhaler 1 puff IH BID RF: 0 quetiapine 150 MG tablet extended release 24 hr 50 mg PO QHS RF: 0 quetiapine 100 MG tablet 50 mg PO DAILY RF: 0 Primary Care Provider: Jerome Conrad Referrals: Jerome Conrad MD [Primary Care Provider] -
[2020-11-24 20:46] LABS: Bacteria 0 SEEN /hpf (None Seen); Mucous, Urine 0 SEEN /hpf (<or=2+); Red Blood Cells-Urine 0 SEEN /hpf (0-5); Squamous Epithelial Cells - UA 0 SEEN /hpf (0-5); White Blood Cells 0 SEEN /hpf (0-5)
[2020-11-24] MEDS: Ondansetron 4 MG/2 ML Vial IV (20:48)
[2020-11-24] MEDS: Ketorolac 15 MG/ML Vial IV (20:48)
[2020-11-24 20:53] LABS: Color, Urine Yellow (Yellow); Glucose, Dipstick Normal (Normal); Ketone-Dipstick Negative (Negative); Leukocyte Esterase-Dipstick Negative /ul (Negative); Nitrite-Dipstick Negative (Negative); Occult Blood-Urine Negative /ul (Negative); Protein-Dipstick 15 mg/dl (Negative); Specific Gravity, Urine 1.015 (1.002-1.030); Urine Bilirubin Dipstick Negative (Negative); Urine Clarity Clear (Clear); Urine Urobilinogen Normal (Normal)
[2020-11-24 20:59] LABS: Absolute Lymphocyte Count 1.22 X10^3/uL (0.83-4.51); Absolute Neutrophil Count 6.8 X10^3/uL (2.0-7.7); Basophil# 0.01 X10^3/uL; Basophil% 0.1 % (0-1); Eosinophil# 0.01 X10^3/uL; Eosinophils% 0.1 % (0-5); Hematocrit 43.1 % (40-54); Hemoglobin 14.7 g/dL (13.0-16.5); Lymphocyte # 1.22 X10^3/ul (0.83-4.51); Lymphocyte % 14.1 % (19-41); Mean Corp Hgb Conc 34.1 g/dL (32-36); Mean Corpuscular Hgb 32.5 pg (27.0-32.0); Mean Corpuscular Volume 95.4 fL (80-94); Mean Platelet Vol. 9.6 fl (6.2-12.0); Monocyte# 0.49 X10^3/uL; Monocyte% 5.7 % (0-10); NRBC Flagged by Analyzer 0 % (0-5); Neutrophil # 6.84 X10^3/uL (2.7-7.7); Neutrophil % 79.1 % (47-70); Platelet Count 212 K/mm3 (150-450); RBC Distribution Width CV 11.9 % (11.6-14.6); RBC Distribution Width SD 41.2 fl (35.1-43.9); Red Blood Count 4.52 M/mm3 (4.6-6.2); White Blood Count 8.7 K/mm3 (4.4-11.0)
[2020-11-24 21:02] LABS: Anion Gap 6 (5-15); BUN 11 mg/dL (7-18); BUN/Creat Ratio 9.7 RATIO (10-20); Calcium,Total 8.6 mg/dL (8.5-10.1); Chloride 112 mmol/L (98-107); Creatinine, Serum 1.13 mg/dL (0.70-1.30); EST Glomerular Filtration Rate 78 mL/min (>60); Est Glom Filt Rate - Afr Amer 94 mL/min (>60); Estimated Creatinine Clearance 102.13 ml/min; Glucose 91 mg/dL (74-106); Potassium 3.4 mmol/L (3.5-5.1); Sodium Level 141 mmol/L (136-145)
--- NOTE | 2020-11-24 21:11 | CT_ITS ---
STUDY: CT ABDOMEN AND PELVIS WITHOUT CONTRAST REASON FOR EXAM: Male, 35 years old. right flank pain RADIATION DOSAGE (If Supplied By Facility): CTDIvol = ( 20.88 ) mGy, DLP = ( 1100.58 ) mGycm TECHNIQUE: Transaxial images were obtained from the dome of the diaphragm to the symphysis pubis without oral contrast, and without intravenous contrast. Sagittal and coronal images were reconstructed. Individualized dose optimization techniques were used for this CT. COMPARISON: 06/28/2020. FINDINGS: Limited views through the lower chest show bilateral small pleural effusions, left worse than right. 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 There are surgical clips in the gallbladder fossa consistent with a prior cholecystectomy. Normal spleen. Normal pancreas. Normal bilateral adrenal glands. Normal right kidney. Left kidney has a stable nonobstructing 3 mm lower pole stone, otherwise normal left kidney. Evaluation of the GI tract is limited by absence of oral contrast. Cannot exclude stomach wall thickening. No dilated loops of bowel or evidence for obstruction. Cannot exclude segmental thickening of the brown of the small or large bowel. Cannot exclude enteritis or colitis. Moderate diffuse fecal retention. There has been appendectomy. Normal abdominal aorta. Normal inferior vena cava. Normal retroperitoneum. Normal urinary bladder. Normal abdominal wall. Normal osseous structures. CT/Abdomen/Pelvis without Cont IMPRESSION: No definite acute abnormality in the abdomen or pelvis. Small nonobstructing stone of the left lower pole. Bilateral small pleural effusions. Electronically Signed: Brayan Lyman MD at 21:51 EDT , Service support ,
[2020-11-24 22:38] VITALS: BP 135/62; PULSE 69; RESP 18; O2SAT 98
== END 2020-11-24 22:39 | disposition home or self-care (01) ==
LOC: ED 20:03
PROVIDERS: Emergency Provider Student in an Organized Health Care Education/Training Program; PCP Family Medicine
DX: R10.9 Unspecified abdominal pain (principal); F17.200 Nicotine dependence, unspecified, uncomplicated; F43.10 Post-traumatic stress disorder, unspecified; G40.909 Epilepsy, unspecified, not intractable, without status epilepticus; Z87.442 Personal history of urinary calculi; Z79.899 Other long term (current) drug therapy
CPT/HCPCS: 74176; 80048; 81001; 85025; 96374; 96375; 99283; A4216; J2405

== ENCOUNTER 2020-12-04 17:04 | Emergency (ER) | payer MEDICAID, SELFPAY ==
[2020-12-04 17:05] VITALS: BP 122/72; PULSE 71; RESP 16; TEMP 36.1; O2SAT 97; BMI 30.3
--- NOTE | 2020-12-04 17:25 | EKG12_ITS ---
Test Reason : DIZZINESS Blood Pressure : / mmHG Vent. Rate : 057 BPM Atrial Rate : 057 BPM P-R Int : 156 ms QRS Dur : 092 ms QT Int : 390 ms P-R-T Axes : 042 028 022 degrees QTc Int : 379 ms Sinus bradycardia Otherwise normal ECG Confirmed by SANTI DALE, NO ([id number]), state editor JANE DAVALOS ([id number]) on 12/05/2020 10:09:19 AM Referred By: DEQUAN Confirmed By:NO HANCOCK MD
--- NOTE | 2020-12-04 17:33 | NURSING ---
NO OLD EKG
[2020-12-04] MEDS: diazePAM 5 MG Tablet PO (17:47)
[2020-12-04 18:14] LABS: Absolute Lymphocyte Count 1.73 X10^3/uL (0.83-4.51); Absolute Neutrophil Count 4.2 X10^3/uL (2.0-7.7); Basophil# 0.03 X10^3/uL; Basophil% 0.4 % (0-1); Eosinophil# 0.17 X10^3/uL; Eosinophils% 2.5 % (0-5); Hematocrit 44.5 % (40-54); Hemoglobin 15.3 g/dL (13.0-16.5); Lymphocyte # 1.73 X10^3/ul (0.83-4.51); Mean Corp Hgb Conc 34.4 g/dL (32-36); Mean Corpuscular Hgb 32.6 pg (27.0-32.0); Mean Corpuscular Volume 94.9 fL (80-94); Mean Platelet Vol. 9.4 fl (6.2-12.0); Monocyte# 0.71 X10^3/uL; Monocyte% 10.2 % (0-10); NRBC Flagged by Analyzer 0 % (0-5); Neutrophil # 4.22 X10^3/uL (2.7-7.7); Neutrophil % 60.9 % (47-70); Platelet Count 198 K/mm3 (150-450); Red Blood Count 4.69 M/mm3 (4.6-6.2); White Blood Count 6.9 K/mm3 (4.4-11.0)
[2020-12-04 18:39] LABS: Anion Gap 3 (5-15); BUN 11 mg/dL (7-18); BUN/Creat Ratio 9.3 RATIO (10-20); Calcium,Total 9.2 mg/dL (8.5-10.1); Chloride 109 mmol/L (98-107); Creatinine, Serum 1.18 mg/dL (0.70-1.30); EST Glomerular Filtration Rate 74 mL/min (>60); Est Glom Filt Rate - Afr Amer 90 mL/min (>60); Estimated Creatinine Clearance 97.81 ml/min; Glucose 85 mg/dL (74-106); Potassium 3.4 mmol/L (3.5-5.1); Sodium Level 140 mmol/L (136-145)
--- NOTE | 2020-12-04 18:42 | EDS_ITS ---
HPI History of Present Illness Chief Complaint: Dizziness Informant: patient Narrative Narrative: 35-year-old male presenting with vertigo. Patient states this started approximately 4 weeks ago. He has been put on 2 courses of prednisone. He states he initially felt improved but now the symptoms have returned. He has vertigo which worsens when he stands or turns his head. He has tried meclizine. He denies headache. He states he had a CT of his head when this began that was unremarkable. Denies numbness or weakness. Denies other complaints. Prior similar symptoms: Yes PFSH PFSH Medical History Epilepsy Kidney stones PTSD (post-traumatic stress disorder) Home Medications levetiracetam 1,500 mg PO BID 04/06/20 [History Last Taken 04/06/20 08:00 1500 mg] zonisamide 200 mg PO BID 04/06/20 [History Last Taken 04/06/20 08:00 200 mg] omeprazole 20 mg PO DAILY 04/07/20 [History Last Taken 04/06/20 08:00 20 mg] buspirone 10 mg PO BID 06/14/20 [History Last Taken Unknown] mometasone-formoterol [Dulera] 1 puff IH BID 06/14/20 [History Last Taken Unknown] paroxetine HCl 10 mg PO DAILY 06/14/20 [History Last Taken Unknown] quetiapine 50 mg PO DAILY 10/29/20 [History Last Taken Unknown] quetiapine 50 mg PO QHS 10/29/20 [History Last Taken Unknown] ondansetron HCl [Zofran] 4 mg PO Q8H PRN #14 tab 11/24/20 [Rx Last Taken Unknown] diazepam 2 mg PO TID PRN PRN #10 tablet 12/04/20 [Rx Last Taken Unknown] Allergy/AdvReac Type Severity Reaction Status Date / Time carbamazepine Allergy NEEDS Verified 12/04/20 17:05 FOLLOW-UP NSAIDS (Non-Steroidal Allergy Upset Verified 12/04/20 17:05 Anti-Inflamma Stomach phenytoin Allergy NEEDS Verified 12/04/20 17:05 FOLLOW-UP topiramate Allergy NEEDS Verified 12/04/20 17:05 FOLLOW-UP LOXAGATE SODIUM Allergy NEEDS Uncoded 12/04/20 17:05 FOLLOW-UP Social History (Updated 11/10/19 @ 13:49 by Gunnar LIN, PA) Smoking Status: Former smoker ROS ROS ED Constitutional Constitutional ED: Denies fever(s) Eyes Eyes: Denies change in vision ENT ENT ED: Denies rhinorrhea or sore throat Cardiovascular Cardiovascular: Denies chest pain or palpitations Respiratory/Chest Respiratory/Chest: Denies cough or dyspnea Gastrointestinal Gastrointestinal: Reports nausea; Denies abdominal pain, diarrhea or vomiting Genitourinary Genitourinary ED: Denies dysuria Musculoskeletal Musculoskeletal: Denies myalgias Integumentary Denies rash Neurologic Neurologic: Denies headache(s), paresthesias or weakness Psychiatric Psychiatric: Denies suicidal thoughts EXAM Physical Exam Const Vital Signs: 12/04/20 17:05 12/04/20 17:59 Temperature 97 F L Temperature Source Temporal Pulse Rate 71 Respiratory Rate 16 Respiratory Effort Normal Non-Labored Respiratory Pattern Normal Blood Pressure 122/72 H Blood Pressure Mean 88 Pulse Ox 97 Oxygen Delivery Method Room Air Positive well nourished and well developed General Appearance ED: well developed HEENT Reports normocephalic and head/scalp atraumatic Eyes PERRL and EOMs intact bilaterally Neck supple General: Negative for tenderness Chest Wall inspection of chest normal Resp normal respiratory effort and clear to auscultation bilaterally Cardio regular rate and regular rhythm GI non-tender and non-distended Palpation: soft; Negative for guarding or rebound tenderness present no CVA tenderness Extremity normal to inspection Neuro oriented x3 and CN's II-XII intact bilaterally Sensorium / Orientation: alert Motor Exam: strength 5/5 throughout Psych mental status grossly normal Skin no rashes or lesions noted MDM MDM MDM Narrative Medical decision making narrative: Patient was given Valium with improvement of his symptoms. He is referred to Dr. Pina on-call for ENT. Advised to return to the ED for worsening complaints. Lab Data Attestation: I reviewed the patient's lab results. Labs: Laboratory Results - last 24 hr 12/04/20 12/04/20 17:58 17:58 WBC 6.9 RBC 4.69 Hgb 15.3 Hct 44.5 MCV 94.9 H MCH 32.6 H MCHC 34.4 RDW Std Deviation 41.0 RDW Coeff of [place] 12.0 Plt Count 198 MPV 9.4 Immature Gran % (Auto) 1.000 H Neut % (Auto) 60.9 Lymph % (Auto) 25.0 [place] % (Auto) 10.2 H Eos % (Auto) 2.5 Baso % (Auto) 0.4 Absolute Neuts (auto) 4.2 Absolute Lymphs (auto) 1.73 Nucleated RBC % 0 Sodium 140 Potassium 3.4 L Chloride 109 H Carbon Dioxide 28.0 Anion Gap 3 L BUN 11 Creatinine 1.18 Estim Creat Clear Calc 97.81 Est GFR (MDRD) Af Amer 90 Est GFR (MDRD) Non-Af 74 BUN/Creatinine Ratio 9.3 L Glucose 85 Calcium 9.2 Troponin I < 0.015 EKG Initial EKG: Attestation: I personally reviewed and interpreted this EKG as follows: Interpretation: Sinus Rhythm and No Acute Injury Pattern Discharge Plan Triage Chief Complaint: Dizziness ED Provider: Gini Arreguin Dx/Rx/DC Orders Clinical Impression: Benign paroxysmal positional vertigo Instructions: ED BPV Vertigo Prescriptions: New diazepam [diazepam] 2 MG tablet 2 mg PO TID PRN PRN (Reason: Vertigo) Qty: 10 RF: 0 No Action zonisamide 100 MG capsule 200 mg PO BID RF: 0 levetiracetam 750 MG tablet 1,500 mg PO BID RF: 0 omeprazole 20 MG capsule,delayed release(DR/EC) 20 mg PO DAILY RF: 0 buspirone 5 MG tablet 10 mg PO BID RF: 0 paroxetine HCl 10 MG tablet 10 mg PO DAILY RF: 0 Dulera 8.8 GM HFA aerosol inhaler 1 puff IH BID RF: 0 quetiapine 150 MG tablet extended release 24 hr 50 mg PO QHS RF: 0 quetiapine 100 MG tablet 50 mg PO DAILY RF: 0 ondansetron HCl [Zofran] 4 mg tablet 4 mg PO Q8H PRN (Reason: nausea and vomiting) Qty: 14 RF: 0 Primary Care Provider: Jerome Conrad Referrals: Jerome Conrad MD [Primary Care Provider] - Disposition Disposition: Home, self care
--- NOTE | 2020-12-04 19:05 | CM.ED ---
SOCIAL WORK Reason for Referral- Resources Updated by physician patient asking about psych services for son who requires an evaluation due to PTSD. Met with patient at bedside. Introduced role. Discussed son's needs and provided education and resources. Patient denies any further questions or concerns. Dot Swanson, [employer]ENDER, EMPLOYMENT [employer] SPECIALIST
[2020-12-04 19:08] VITALS: BP 110/72; PULSE 60; RESP 17; O2SAT 98
== END 2020-12-04 19:10 | disposition home or self-care (01) ==
PROVIDERS: Emergency Provider Emergency Medicine; PCP Family Medicine
DX: H81.10 Benign paroxysmal vertigo, unspecified ear (principal); G40.909 Epilepsy, unspecified, not intractable, without status epilepticus; F43.10 Post-traumatic stress disorder, unspecified; Z79.899 Other long term (current) drug therapy; Z87.891 Personal history of nicotine dependence
CPT/HCPCS: 80048; 84484; 85025; 93005; 99284; A4216

== ENCOUNTER 2021-03-15 08:52 | Emergency (ER) | payer MEDICAID, SELFPAY ==
[2021-03-15 08:53] VITALS: BP 104/68; PULSE 81; RESP 16; TEMP 36.5; O2SAT 96; BMI 29.7
--- NOTE | 2021-03-15 09:38 | EX.ED.DYSGE1 ---
HPI History of Present Illness Chief Complaint: Abscess Informant: patient Narrative Narrative: Patient sent in after discussing with his PCP for evaluation of potential facial abscess. Noticed this 3 days ago. States no drainage. He states he has not been manipulating. Denies any significant pain. Denies history of similar. No history of diabetes. Denies any fevers. Prior similar symptoms: No PFSH PFSH Medical History Bipolar 1 disorder Epilepsy Kidney stones PTSD (post-traumatic stress disorder) Schizophrenia Home Medications levetiracetam 1,500 mg PO BID 04/06/20 [History Last Taken 04/06/20 08:00 1500 mg] zonisamide 200 mg PO BID 04/06/20 [History Last Taken 04/06/20 08:00 200 mg] omeprazole 20 mg PO DAILY 04/07/20 [History Last Taken 04/06/20 08:00 20 mg] buspirone 10 mg PO BID 06/14/20 [History Last Taken Unknown] mometasone-formoterol [Dulera] 1 puff IH BID 06/14/20 [History Last Taken Unknown] paroxetine HCl 10 mg PO DAILY 06/14/20 [History Last Taken Unknown] quetiapine 50 mg PO DAILY 10/29/20 [History Last Taken Unknown] quetiapine 50 mg PO QHS 10/29/20 [History Last Taken Unknown] ondansetron HCl [Zofran] 4 mg PO Q8H PRN #14 tab 11/24/20 [Rx Last Taken Unknown] diazepam 2 mg PO TID PRN PRN #10 tablet 12/04/20 [Rx Last Taken Unknown] cephalexin 500 mg PO Q6 #40 cap 03/15/21 [Rx Last Taken Unknown] Allergy/AdvReac Type Severity Reaction Status Date / Time carbamazepine Allergy NEEDS Verified 03/15/21 08:52 FOLLOW-UP NSAIDS (Non-Steroidal Allergy Upset Verified 03/15/21 08:52 Anti-Inflamma Stomach phenytoin Allergy NEEDS Verified 03/15/21 08:52 FOLLOW-UP topiramate Allergy NEEDS Verified 03/15/21 08:52 FOLLOW-UP LOXAGATE SODIUM Allergy NEEDS Uncoded 03/15/21 08:52 FOLLOW-UP Social History Smoking Status: Current some day smoker tobacco type: e-cigarettes ROS ROS ED Constitutional Constitutional ED: Denies chills, fever(s) or sweats Eyes Eyes: Denies change in vision ENT ENT ED: Denies dysphagia or sore throat Cardiovascular Cardiovascular: Denies chest pain, leg edema, palpitations or racing heartbeat Respiratory/Chest Respiratory/Chest: Denies cough, dyspnea or dyspnea on exertion Gastrointestinal Gastrointestinal: Denies abdominal pain, diarrhea, nausea or vomiting Genitourinary Genitourinary ED: Denies dysuria, hematuria or urinary frequency Musculoskeletal Musculoskeletal: Denies back pain, extremity pain or neck pain Integumentary Reports abscess; Denies rash or wounds Neurologic Neurologic: Denies headache(s), paresthesias or weakness EXAM Physical Exam Const Vital Signs: 03/15/21 08:53 Temperature 97.7 F L Temperature Source Temporal Pulse Rate 81 Respiratory Rate 16 Blood Pressure 104/68 Blood Pressure Mean 80 Pulse Ox 96 Oxygen Delivery Method Room Air Positive well nourished and well developed General Appearance ED: well developed and NAD HEENT Reports moist mucous membranes HEENT Narrative: Left maxillary region anterior to the earlobe noted 1/2 cm induration scabbing noted, no surrounding erythema. Minimal tenderness to palpation. No active drainage. normocephalic and atraumatic Eyes PERRL, EOMs intact bilaterally and conjunctivae normal General Eye ED: Yes normal appearance of both eyes Neck no lymphadenopathy and supple General: Negative for tenderness Chest Wall Chest: Negative for tenderness Resp normal respiratory effort and normal air movement Effort and Inspection: symmetric chest movement; Negative for respiratory distress Cardio regular rate, regular rhythm and no murmurs Peripheral Pulses: pulses 2+ throughout GI normal to inspection, nondistended, normoactive bowel sounds and non-tender Palpation: Negative for guarding or rebound tenderness present Back/Spine no CVA tenderness and no thoracic nor lumbar tenderness Extremity normal to inspection General Extremety ED: Negative for edema or tenderness General Extremity: Negative for edema Neuro oriented x3 and no sensory deficits noted Sensorium / Orientation: awake and alert Skin no rashes or lesions noted and no wounds MDM MDM MDM Narrative Medical decision making narrative: Patient small abscess left face. Area and anesthetized, debrided the scabbing, needle aspiration 3, 6, 9, 12 areas. There was slight exudates. Patient will placed on Keflex with [id number] prescription. Wound care discussed. Follow-up as an outpatient. Procedure note: Verbal consent. Initial topical LET, added 1% lidocaine 1 cc. 15 blade used to do bride the scabbing, there is exudative returns. 18-gauge needle aspiration 3, 6, 9, 12:00 positions. Patient taught procedure well. Bandage placed. Discharge Plan Triage Chief Complaint: Abscess ED Provider: Pepito De La Cruz Dx/Rx/DC Orders Clinical Impression: Abscess of face Instructions: ED Abscess Incision And Drainage Prescriptions: New cephalexin 500 mg capsule 500 mg PO Q6 Qty: 40 RF: 0 No Action zonisamide 100 MG capsule 200 mg PO BID RF: 0 levetiracetam 750 MG tablet 1,500 mg PO BID RF: 0 omeprazole 20 MG capsule,delayed release(DR/EC) 20 mg PO DAILY RF: 0 buspirone 5 MG tablet 10 mg PO BID RF: 0 paroxetine HCl 10 MG tablet 10 mg PO DAILY RF: 0 Dulera 8.8 GM HFA aerosol inhaler 1 puff IH BID RF: 0 quetiapine 150 MG tablet extended release 24 hr 50 mg PO QHS RF: 0 quetiapine 100 MG tablet 50 mg PO DAILY RF: 0 ondansetron HCl [Zofran] 4 mg tablet 4 mg PO Q8H PRN (Reason: nausea and vomiting) Qty: 14 RF: 0 diazepam [diazepam] 2 MG tablet 2 mg PO TID PRN PRN (Reason: Vertigo) Qty: 10 RF: 0 Primary Care Provider: Jerome Conrad Referrals: Jerome Conrad MD [Primary Care Provider] - 3-5 Days Activity Restrictions/Additional Instructions: Status post skin debride and needle aspiration. [id number] to start Keflex if worsens. Follow-up with your doctor. Disposition Disposition: Home, Self Care
[2021-03-15] MEDS: Lidocaine/Epi/Tetracaine 50 ML 1 APPLIC TOPICAL (10:10)
[2021-03-15 11:54] VITALS: PULSE 87; RESP 17; O2SAT 98
== END 2021-03-15 11:54 | disposition home or self-care (01) ==
PROVIDERS: Emergency Provider Emergency Medicine; PCP Family Medicine
DX: L02.01 Cutaneous abscess of face (principal); F31.9 Bipolar disorder, unspecified; F20.9 Schizophrenia, unspecified; F43.10 Post-traumatic stress disorder, unspecified; G40.909 Epilepsy, unspecified, not intractable, without status epilepticus; Z79.51 Long term (current) use of inhaled steroids; Z79.899 Other long term (current) drug therapy
CPT/HCPCS: 99283

== ENCOUNTER 2021-04-09 22:27 | Emergency (ER) | payer MEDICAID, SELFPAY ==
[2021-04-09 22:28] VITALS: BP 114/77; PULSE 69; RESP 8; TEMP 36.4; O2SAT 97; BMI 66.2
--- NOTE | 2021-04-10 00:38 | EX.ED.DYSGE1 ---
HPI History of Present Illness Chief Complaint: Other, Pain/Inj Informant: patient Narrative Narrative: Patient comes in complaining of discomfort from a pilar cyst on his head. He has had this cyst for at least 5 years or more. He states he is never really seen anyone for it. Over the last month or 2 it seems to have grown a little bit more. It is never drained. He has no fevers or chills. No generalized headache. He saw a animal attendants and trainers earlier today. They are getting prior approval to remove this. They did not feel that it need to be drained at this time. He comes in here now because it is sore. He is wondering if it is from being pressed on today. It is more sore if you press on it. It is better if you do not touch it. No other symptoms. [facility] Medical History Bipolar 1 disorder Epilepsy Kidney stones PTSD (post-traumatic stress disorder) Schizophrenia Home Medications levetiracetam 1,500 mg PO BID 04/06/20 [History Last Taken 04/06/20 08:00 1500 mg] zonisamide 200 mg PO BID 04/06/20 [History Last Taken 04/06/20 08:00 200 mg] omeprazole 20 mg PO DAILY 04/07/20 [History Last Taken 04/06/20 08:00 20 mg] buspirone 10 mg PO BID 06/14/20 [History Last Taken Unknown] mometasone-formoterol [Dulera] 1 puff IH BID 06/14/20 [History Last Taken Unknown] paroxetine HCl 10 mg PO DAILY 06/14/20 [History Last Taken Unknown] quetiapine [Seroquel] 50 mg PO BID 04/09/21 [History Last Taken Unknown] cephalexin 500 mg PO Q6 #40 cap 04/10/21 [Rx Last Taken Unknown] Allergy/AdvReac Type Severity Reaction Status Date / Time carbamazepine Allergy NEEDS Verified 04/09/21 23:41 FOLLOW-UP NSAIDS (Non-Steroidal Allergy Upset Verified 04/09/21 23:41 Anti-Inflamma Stomach phenytoin Allergy NEEDS Verified 04/09/21 23:41 FOLLOW-UP topiramate Allergy NEEDS Verified 04/09/21 23:41 FOLLOW-UP LOXAGATE SODIUM Allergy NEEDS Uncoded 04/09/21 23:41 FOLLOW-UP Social History Smoking Status: Current some day smoker tobacco type: e-cigarettes ROS ROS ED Constitutional Constitutional ED: Denies chills or fever(s) ENT ENT ED: Denies rhinorrhea Respiratory/Chest Respiratory/Chest: Denies cough Gastrointestinal Gastrointestinal: Denies nausea or vomiting Musculoskeletal Musculoskeletal: Denies back pain or neck pain Integumentary Reports other Details: See history of present illness. Neurologic Neurologic: Reports other Details: He has history of seizures but has not been having these. ; Denies headache(s), paresthesias or weakness Psychiatric Psychiatric: Reports other Details: Depression, anxiety, PTSD and schizophrenia. Endocrine Endocrinology: Denies polydipsia or polyuria EXAM Physical Exam Const Vital Signs: 04/09/21 22:28 04/09/21 23:43 Temperature 97.6 F L Temperature Source Temporal Pulse Rate 69 Respiratory Rate 8 L Respiratory Effort Normal Non-Labored Respiratory Pattern Normal Blood Pressure 114/77 Blood Pressure Mean 89 Pulse Ox 97 Oxygen Delivery Method Room Air Positive well nourished and well developed General Appearance ED: well developed HEENT HEENT Narrative: Patient has a approximately 2-1/2 cm around cyst on the top of his head. It has some mild erythema but not significant. There is no pointing abscess or focal area that looks inflamed. He does state that it is tender when I press on it. It does seem to be mobile from the surrounding tissue. Negative for trauma Eyes EOMs intact bilaterally General Eye ED: Negative for pale conjunctiva or scleral icterus Neck no lymphadenopathy Resp normal respiratory effort and clear to auscultation bilaterally Cardio regular rate and regular rhythm GI normal to inspection, nondistended, normoactive bowel sounds and non-tender Palpation: soft Neuro oriented x3 Sensorium / Orientation: alert Psych mental status grossly normal Skin Skin Narrative: See above. MDM MDM MDM Narrative Medical decision making narrative: I did think this needs to be drained now. It evidently has been swollen for 5 years. It has been growing more over the last couple months. There is minimal erythema that might be just from irritation but could be early infection. He has follow-up with dermatology for removal. I will give him medicines for pain here. I will give him antibiotics to see if this might calm this down. We discussed reasons to return. Discharge Plan Triage Chief Complaint: Other, Pain/Inj ED Provider: Tony Ramos Dx/Rx/DC Orders Clinical Impression: Pilar cyst Instructions: Epidermoid Cyst Infect Antibiotics Prescriptions: New cephalexin 500 mg capsule 500 mg PO Q6 Qty: 40 RF: 0 No Action zonisamide 100 MG capsule 200 mg PO BID RF: 0 levetiracetam 750 MG tablet 1,500 mg PO BID RF: 0 omeprazole 20 MG capsule,delayed release(DR/EC) 20 mg PO DAILY RF: 0 buspirone 5 MG tablet 10 mg PO BID RF: 0 paroxetine HCl 10 MG tablet 10 mg PO DAILY RF: 0 Dulera 8.8 GM HFA aerosol inhaler 1 puff IH BID RF: 0 quetiapine [Seroquel] 50 mg Tablet 50 mg PO BID RF: 0 Primary Care Provider: Jerome Conrad Referrals: Jerome Conrad MD [Primary Care Provider] - Activity Restrictions/Additional Instructions: Follow-up with your animal attendants and trainers as scheduled for removal. Disposition Disposition: Home, Self Care
[2021-04-10] MEDS: Cephalexin 250 MG Capsule 500 MG PO (01:04)
[2021-04-10] MEDS: HYDROcodone Bitartrate/Apap 5/325 Tablet PO (01:04)
[2021-04-10] MEDS: COVID-19 VACC, MRNA(PFIZER)/PF 30 MCG/0.3 ML SYRINGE IM (01:31)
== END 2021-04-10 01:47 | disposition home or self-care (01) ==
LOC: ED 04-10 00:54
PROVIDERS: Emergency Provider Emergency Medicine; PCP Family Medicine
DX: L72.11 Pilar cyst (principal); Z23 Encounter for immunization; F17.290 Nicotine dependence, other tobacco product, uncomplicated; G40.909 Epilepsy, unspecified, not intractable, without status epilepticus; F20.9 Schizophrenia, unspecified; F31.9 Bipolar disorder, unspecified; Z79.899 Other long term (current) drug therapy; Z79.51 Long term (current) use of inhaled steroids
CPT/HCPCS: 91300; 99283

== ENCOUNTER 2021-04-19 21:46 | Emergency (ER) | payer MEDICAID, SELFPAY ==
[2021-04-19 21:47] VITALS: BP 117/77; PULSE 70; RESP 16; TEMP 36.6; O2SAT 97; BMI 29.9
--- NOTE | 2021-04-19 22:30 | EDS_ITS ---
HPI History of Present Illness Chief Complaint: Headache Informant: patient Onset/Context/Timing Onset: Yesterday Context: Gradual Timing: Continuous Location: Left parietal Worsened by: Nothing Relieved by: Nothing Associated Symptoms/Injury Associated Symptoms: Positive for Nausea and Vomiting; Negative for Fever, Sore Throat, Sinus Pressure, Numbness, Tingling, Preceding Aura, Visual Changes, Blurred Vision, Photophobia and Visual Loss Narrative Narrative: Patient presents with a headache that began yesterday. Patient states he had some cysts removed from his scalp a couple days ago. Patient states his pain has been getting worse. Patient states he has been taking Tylenol with no relief. Patient denies any fevers or chills. Patient states it is over the left parietal area. Patient denies any discharge or drainage. Patient is currently taking Keflex. Patient admits to some nausea and vomiting. Patient denies any fevers or chills. Patient denies any numbness or tingling. Patient denies any visual changes or scotoma. [facility] Medical History (Updated 04/19/21 @ 22:[address] Boby Ramirez, ) Bipolar 1 disorder Epilepsy Kidney stones PTSD (post-traumatic stress disorder) Schizophrenia Home Medications levetiracetam 1,500 mg PO BID 04/06/20 [History Last Taken 04/06/20 08:00 1500 mg] zonisamide 200 mg PO BID 04/06/20 [History Last Taken 04/06/20 08:00 200 mg] omeprazole 20 mg PO DAILY 04/07/20 [History Last Taken 04/06/20 08:00 20 mg] buspirone 10 mg PO BID 06/14/20 [History Last Taken Unknown] mometasone-formoterol [Dulera] 1 puff IH BID 06/14/20 [History Last Taken Unknown] paroxetine HCl 10 mg PO DAILY 06/14/20 [History Last Taken Unknown] quetiapine [Seroquel] 50 mg PO BID 04/09/21 [History Last Taken Unknown] cephalexin 500 mg PO Q6 #40 cap 04/10/21 [Rx Last Taken Unknown] Allergy/AdvReac Type Severity Reaction Status Date / Time carbamazepine Allergy NEEDS Verified 04/19/21 22:22 FOLLOW-UP NSAIDS (Non-Steroidal Allergy Upset Verified 04/19/21 22:22 Anti-Inflamma Stomach phenytoin Allergy NEEDS Verified 04/19/21 22:22 FOLLOW-UP topiramate Allergy NEEDS Verified 04/19/21 22:22 FOLLOW-UP LOXAGATE SODIUM Allergy NEEDS Uncoded 04/19/21 22:22 FOLLOW-UP Surgical History (Updated 04/19/21 @ 22:[address] Boby Ramirez DO) Hx of appendectomy Hx of cholecystectomy Social History Smoking Status: Current some day smoker tobacco type: e-cigarettes ROS ROS ED Constitutional Constitutional ED: Denies chills or fever(s) Eyes Eyes: Denies blurry vision or change in vision ENT ENT ED: Denies rhinorrhea or sore throat Cardiovascular Cardiovascular: Denies chest pain or palpitations Respiratory/Chest Respiratory/Chest: Denies cough or dyspnea Gastrointestinal Gastrointestinal: Reports nausea and vomiting Genitourinary Genitourinary ED: Denies dysuria or hematuria Musculoskeletal Musculoskeletal: Denies back pain or neck pain Integumentary Denies abscess or rash Neurologic Neurologic: Reports headache(s); Denies weakness Allergic/Immunologic Allergic/Immunologic ED: Denies mouth swelling or urticaria EXAM Physical Exam Const Vital Signs: 04/19/21 21:47 Temperature 97.8 F Temperature Source Temporal Pulse Rate 70 Respiratory Rate 16 Blood Pressure 117/77 Blood Pressure Mean 90 Pulse Ox 97 Oxygen Delivery Method Room Air Positive well nourished and well developed General Appearance ED: well developed HEENT Reports moist mucous membranes HEENT Narrative: There is some mild fluctuance over the surgical wound site. There is no bony crepitance or step-off. There is no erythema noted. There is no discharge or drainage. Eyes PERRL and EOMs intact bilaterally Neck supple and no JVD Neuro oriented x3, CN's II-XII intact bilaterally and no sensory deficits noted Sensorium / Orientation: awake and alert Motor Exam: strength 5/5 throughout Psych mental status grossly normal MDM MDM MDM Narrative Medical decision making narrative: Patient is currently taking Keflex. I do not feel his antibiotics need changes at this time. Patient was given an injection of morphine here. Patient was instructed continue his pain medications at home. Patient was instructed to follow-up with his primary care physician in 5 to 7 days. Patient understood and was agreeable with the plan. All questions were answered. Discharge Plan Triage Chief Complaint: Headache ED Provider: Boby Ramirez Dx/Rx/DC Orders Clinical Impression: Post-operative pain Instructions: ED Post Op Wound Check, Pain Prescriptions: No Action zonisamide 100 MG capsule 200 mg PO BID RF: 0 levetiracetam 750 MG tablet 1,500 mg PO BID RF: 0 omeprazole 20 MG capsule,delayed release(DR/EC) 20 mg PO DAILY RF: 0 buspirone 5 MG tablet 10 mg PO BID RF: 0 paroxetine HCl 10 MG tablet 10 mg PO DAILY RF: 0 Dulera 8.8 GM HFA aerosol inhaler 1 puff IH BID RF: 0 quetiapine [Seroquel] 50 mg Tablet 50 mg PO BID RF: 0 cephalexin 500 mg capsule 500 mg PO Q6 Qty: 40 RF: 0 Primary Care Provider: Jerome Conrad Referrals: Jerome Conrad MD [Primary Care Provider] - 3-5 Days Disposition Disposition: Home, Self Care
[2021-04-19] MEDS: Morphine 4 MG/ML Syringe IM (22:33)
== END 2021-04-19 23:09 | disposition home or self-care (01) ==
PROVIDERS: Emergency Provider Emergency Medicine; PCP Family Medicine
DX: G89.18 Other acute postprocedural pain (principal); R51.9 Headache, unspecified; G40.909 Epilepsy, unspecified, not intractable, without status epilepticus; F20.9 Schizophrenia, unspecified; F31.9 Bipolar disorder, unspecified; Z79.899 Other long term (current) drug therapy
CPT/HCPCS: 96372; 99282

== ENCOUNTER 2021-05-04 16:57 | Emergency (ER) | payer MEDICAID, SELFPAY ==
[2021-05-04 16:58] VITALS: BP 125/78; PULSE 78; PULSE 84; RESP 16; RESP 18; TEMP 36.8; O2SAT 100; BMI 29.6
--- NOTE | 2021-05-04 17:08 | CT_ITS ---
STUDY: CT BRAIN WITHOUT CONTRAST REASON FOR EXAM: Male, 36 years old. Headache and stuttering RADIATION DOSAGE (If Supplied By Facility): CTDIvol = ( 38.43 ) mGy, DLP = ( 669.46 ) mGycm TECHNIQUE: Transaxial CT imaging of the brain was performed without administration of intravenous contrast material. Individualized dose optimization techniques were used for this CT. COMPARISON: 07 April 2020 FINDINGS: Brain parenchyma is without focal lesions, mass effect, acute intracranial hemorrhage, extra parenchymal fluid collections, hydrocephalus or herniation. The skull is intact. CT/Brain/Head without Contrast IMPRESSION: 1. Normal CT brain. Electronically Signed: Cami El MD at 17:28 EDT Tel , Service support ,
[2021-05-04 19:14] VITALS: BP 122/76; PULSE 80; RESP 16; O2SAT 98
--- NOTE | 2021-05-04 19:15 | ED.RN ---
per held iv and meds, pt to be d/c.
--- NOTE | 2021-05-05 00:45 | EX.ED.VIS.HA ---
HPI History of Present Illness Chief Complaint: Numb/Ting Narrative Narrative: 36-year-old male with history of epilepsy, schizophrenia, bipolar disorder currently o Keppra, paroxetine, Seroquel, zonisamide. Presenting with acute onset stuttering, mild left-sided headache. Complaining of paresthesias. This started when he was in his car. Patient states the last time he had the symptoms is when he started clonazepam outpatient by his neurologist. He states that at that point he was admitted to the hospital and had an EEG and an MRI which was negative. He was referred to outpatient for speech therapy and it took up to 6 months to improve talking. He did not have a stroke. His other medications have not changed. On arrival his headache is resolved he has no paresthesias he is complaining over the stuttering but he is able to talk to me. [facility] Medical History Bipolar 1 disorder Epilepsy Kidney stones PTSD (post-traumatic stress disorder) Schizophrenia Home Medications levetiracetam 1,500 mg PO BID 04/06/20 [History Last Taken 04/06/20 08:00 1500 mg] zonisamide 200 mg PO BID 04/06/20 [History Last Taken 04/06/20 08:00 200 mg] omeprazole 20 mg PO DAILY 04/07/20 [History Last Taken 04/06/20 08:00 20 mg] buspirone 10 mg PO BID 06/14/20 [History Last Taken Unknown] mometasone-formoterol [Dulera] 1 puff IH BID 06/14/20 [History Last Taken Unknown] paroxetine HCl 20 mg PO DAILY 06/14/20 [History Last Taken Unknown] quetiapine [Seroquel] 50 mg PO BID 04/09/21 [History Last Taken Unknown] cephalexin 500 mg PO Q6 #40 cap 04/10/21 [Rx Last Taken Unknown] clonazepam 0.5 mg PO QHS 05/04/21 [History Last Taken Unknown] sulfamethoxazole-trimethoprim 1 tab PO BID 05/04/21 [History Last Taken Unknown] Allergy/AdvReac Type Severity Reaction Status Date / Time carbamazepine Allergy NEEDS Verified 04/19/21 22:22 FOLLOW-UP NSAIDS (Non-Steroidal Allergy Upset Verified 04/19/21 22:22 Anti-Inflamma Stomach phenytoin Allergy NEEDS Verified 04/19/21 22:22 FOLLOW-UP topiramate Allergy NEEDS Verified 04/19/21 22:22 FOLLOW-UP LOXAGATE SODIUM Allergy NEEDS Uncoded 04/19/21 22:22 FOLLOW-UP Surgical History Hx of appendectomy Hx of cholecystectomy Social History Smoking Status: Current some day smoker tobacco type: e-cigarettes ROS ROS ED Constitutional Constitutional ED: Denies chills, fever(s) or sweats Eyes Eyes: Denies blurry vision or change in vision ENT ENT ED: Denies ear pain, rhinorrhea or sore throat Cardiovascular Cardiovascular: Denies chest pain, palpitations or racing heartbeat Respiratory/Chest Respiratory/Chest: Denies cough, dyspnea or sputum Gastrointestinal Gastrointestinal: Denies abdominal pain, constipation, diarrhea or vomiting Genitourinary Genitourinary ED: Denies dysuria, hematuria or urinary frequency Musculoskeletal Musculoskeletal: Denies arthralgias, myalgias or neck pain Integumentary Denies abscess, Abrasions or rash Neurologic Neurologic: Reports headache(s), paresthesias RLE and other Details: Stuttering ; Denies seizure-like activity Psychiatric Psychiatric: Denies anxiety, depression, suicidal ideation or suicidal thoughts Endocrine Endocrinology: Denies polydipsia or polyuria EXAM Physical Exam Const Vital Signs: 05/04/21 16:58 05/04/21 19:14 Temperature 98.3 F Temperature Source Temporal Pulse Rate 78 80 Respiratory Rate 18 16 Blood Pressure 125/78 H 122/76 H Blood Pressure Mean 93 Pulse Ox 100 98 Oxygen Delivery Method Room Air General Appearance ED: Negative for pallor HEENT Reports normocephalic, head/scalp atraumatic and moist mucous membranes Eyes PERRL and EOMs intact bilaterally Neck no lymphadenopathy and supple Chest Wall inspection of chest normal and palpation of chest normal Resp normal respiratory effort and clear to auscultation bilaterally Auscultation: Negative for rales, rhonchi or wheezes Cardio regular rate and regular rhythm GI normal to inspection, nondistended, normoactive bowel sounds and non-distended Auscultation: normoactive bowel sounds Palpation: soft Narrative: Deferred Extremity normal to inspection General Extremety ED: Yes edema and tenderness General Extremity: edema Neuro oriented x3 and CN's II-XII intact bilaterally Sensorium / Orientation: alert Motor Exam: strength 5/5 throughout Psych mental status grossly normal Attitude: No agitated Skin no rashes or lesions noted and no wounds General Skin Exam: Negative for jaundice or pallor MDM MDM MDM Narrative Medical decision making narrative: Patient presenting with headache, stuttering, paresthesia. The last time he had the symptoms was when he started Klonopin. He states that he started Klonopin 3 days ago and this was started by his neurologist. Now he has an acute onset of the symptoms again. He says the last time he had the symptoms he had a seizure. He has had no seizure today and the symptoms were acutely onset while he was driving. His headache is resolved he has no paresthesias in the ER. Other than his stuttering his neurologic exam is normal. CT of the brain was negative. This was performed prior having a chance to look through the previous hospitalization. Given that the symptoms occurred with the use of Klonopin and he just recently started Klonopin 3 days ago I feel this is the most likely source. The patient himself says that he thinks this is the likely source and as long as it is just the stuttering he can go to speech therapy and get this worked out. I counseled him to discontinue the Klonopin use and follow-up with his neurologist as well. He is amenable to this. He is given return precautions. He is discharged home in stable condition. Impression: 1. Headache resolved 2. Stuttering 3. Medication side effect Radiography Diagnostic Testing: Clinical Impression(s) from Imaging Studies Brain CT 05/04/21 17:08 IMPRESSION: 1. Normal CT brain. Electronically Signed: Cami El MD at 17:28 EDT Tel , Service support , Discharge Plan Triage Chief Complaint: Numb/Ting ED Provider: Antoine Nava Dx/Rx/DC Orders Instructions: Self-Care for Headaches Prescriptions: No Action zonisamide 100 MG capsule 200 mg PO BID RF: 0 levetiracetam 750 MG tablet 1,500 mg PO BID RF: 0 omeprazole 20 MG capsule,delayed release(DR/EC) 20 mg PO DAILY RF: 0 buspirone 5 MG tablet 10 mg PO BID RF: 0 paroxetine HCl 10 MG tablet 20 mg PO DAILY RF: 0 Dulera 8.8 GM HFA aerosol inhaler 1 puff IH BID RF: 0 quetiapine [Seroquel] 50 mg Tablet 50 mg PO BID RF: 0 cephalexin 500 mg capsule 500 mg PO Q6 Qty: 40 RF: 0 clonazepam 0.5 mg tablet 0.5 mg PO QHS RF: 0 sulfamethoxazole-trimethoprim 800-160 mg tablet 1 tab PO BID RF: 0 Primary Care Provider: Jerome Conrad Referrals: Jerome Conrad MD [Primary Care Provider] - Activity Restrictions/Additional Instructions: As we discussed the last time you had the symptoms was the last time he started on clonazepam. After your hospital visit and your negative work-up in the hospital he discontinued this and went to speech therapy and recovered. Since you started your clonazepam 3 days ago and now you are having similar symptoms I recommend you discontinue use of this. I recommend you follow-up with your neurologist and your speech therapist. Return for any new or worsening symptoms. Disposition Disposition: Home, Self Care Discharge Date/Time: 05/04/21 19:15
== END 2021-05-04 19:15 | disposition home or self-care (01) ==
PROVIDERS: Emergency Provider Student in an Organized Health Care Education/Training Program; PCP Family Medicine
DX: R51.9 Headache, unspecified (principal); T42.4X5A Adverse effect of benzodiazepines, initial encounter; F17.290 Nicotine dependence, other tobacco product, uncomplicated; F20.9 Schizophrenia, unspecified; F31.9 Bipolar disorder, unspecified; Z79.899 Other long term (current) drug therapy
CPT/HCPCS: 70450; 99282; A4216

== ENCOUNTER 2021-07-02 18:21 | Emergency (ER) | payer MEDICAID, SELFPAY ==
[2021-07-02 18:22] VITALS: BP 137/78; PULSE 78; RESP 14; TEMP 36.8; O2SAT 100; BMI 33.5
--- NOTE | 2021-07-02 20:54 | EDS_ITS ---
HPI History of Present Illness Chief Complaint: Back Detail of Chief Complaint: Back pain that started at 1530 after changing breaks in his car Informant: patient Onset/Context/Timing Onset: Hours Context: Sudden Onset Injury: twisting and bending Timing: Continuous Quality: Dull and Aching Location: Lumbar and Left Leg Current Severity: Moderate Maximum Severity: Severe Worsened by: improves with Movement, Ambulation, Bending and Lifting Relieved by: Nothing Associated Symptoms Associated Symptoms: Radiation to Left Leg and - (He denies saddle paresthesia o r anesthesia. He denies foot drop. He denies buckling of his knees going up or down steps.); Negative for Numbness, Tingling, Radiation to Right Leg, Fever, Abdominal Pain, Dysuria, Unable to Ambulate, Unable to Transfer, Urinary Retention, Urinary Incontinence, Constipation and Fecal Incontinence Narrative Narrative: Patient is a 36-year-old male with history of herniated disc L4-5 documented on MRI 6 years ago. He presents because of abrupt onset of back pain. He consulted his PCP. PCP recommended come to the emergency department. He reports pain going down the posterior lateral aspect of his right leg to the popliteal fossa. There is no constitutional symptoms of fever, chills night sweats. No recent dental or surgical procedure. He denies drug use. Prior similar symptoms: Yes and With Prior Back Pain Recent Illness/Hospitalization: No PFSH PFSH Medical History Bipolar 1 disorder Epilepsy Kidney stones PTSD (post-traumatic stress disorder) Schizophrenia Home Medications levetiracetam 1,500 mg PO BID 04/06/20 [History Last Taken 04/06/20 08:00 1500 mg] zonisamide 200 mg PO BID 04/06/20 [History Last Taken 04/06/20 08:00 200 mg] omeprazole 20 mg PO DAILY 04/07/20 [History Last Taken 04/06/20 08:00 20 mg] buspirone 10 mg PO BID 06/14/20 [History Last Taken Unknown] mometasone-formoterol [Dulera] 1 puff IH BID 06/14/20 [History Last Taken Unknown] paroxetine HCl 20 mg PO DAILY 06/14/20 [History Last Taken Unknown] quetiapine [Seroquel] 50 mg PO BID 04/09/21 [History Last Taken Unknown] cephalexin 500 mg PO Q6 #40 cap 04/10/21 [Rx Last Taken Unknown] clonazepam 0.5 mg PO QHS 05/04/21 [History Last Taken Unknown] sulfamethoxazole-trimethoprim 1 tab PO BID 05/04/21 [History Last Taken Unknown] hydrocodone-acetaminophen 1 tab PO Q6H PRN PRN 3 Days #10 tablet 07/02/21 [Rx Last Taken Unknown] naproxen 500 mg PO BID #14 tab 07/02/21 [Rx Last Taken Unknown] Allergy/AdvReac Type Severity Reaction Status Date / Time carbamazepine Allergy NEEDS Verified 07/02/21 18:22 FOLLOW-UP NSAIDS (Non-Steroidal Allergy Upset Verified 07/02/21 18:22 Anti-Inflamma Stomach phenytoin Allergy NEEDS Verified 07/02/21 18:22 FOLLOW-UP topiramate Allergy NEEDS Verified 07/02/21 18:22 FOLLOW-UP LOXAGATE SODIUM Allergy NEEDS Uncoded 07/02/21 18:22 FOLLOW-UP Surgical History Hx of appendectomy Hx of cholecystectomy Social History (Updated 07/02/21 @ 20:[address] Channing Victoria MD) household members: family Smoking Status: Current some day smoker tobacco type: e-cigarettes substance use type: does not use EXAM Physical Exam Const Vital Signs: 07/02/21 18:22 07/02/21 21:38 Temperature 98.2 F Temperature Source Temporal Pulse Rate 78 108 H Respiratory Rate 14 24 H Blood Pressure 137/78 H 143/71 H Blood Pressure Mean 97 95 Pulse Ox 100 93 Oxygen Delivery Method Room Air Room Air Positive well nourished, well developed and obese General Appearance ED: well developed and NAD; Negative for pallor Nutritional Appearance: obese HEENT Reports TM's clear Negative for trauma or tenderness Tympanic Membrane ED: Yes TM's clear Eyes PERRL and EOMs intact bilaterally General Eye ED: Negative for pale conjunctiva or scleral icterus Neck no lymphadenopathy, supple and no JVD Resp normal respiratory effort and clear to auscultation bilaterally Cardio regular rate, regular rhythm, S1 normal heart sound, S2 normal heart sound and no murmurs GI normal to inspection, nondistended, normoactive bowel sounds, soft to palpation and non-tender Back/Spine normal to inspection; Negative for no thoracic nor lumbar tenderness Back/Spine Narrative: Patient complained of pain with elevation 1015 degrees on the right. There is no radicular pain. Crossover test was negative. EHL was intact. 5/5 strength with plantar and dorsi flexion of the foot. Normal sensation over L4-5 dermatome right and left. Normal perianal sensation. General Back: Negative for CVA tenderness or scar(s) Cervical Spine: Negative for cervical spine tenderness and Negative for paracervical muscle tenderness Thoracic Spine / Upper Back: paraspinal muscle tenderness Lumbar Spine / Lower Back: straight leg raise negative bilaterally Extremity normal to inspection and no clubbing, cyanosis or edema General Extremety ED: Negative for edema or tenderness General Extremity: Negative for edema Neuro oriented x3 and no sensory deficits noted Neuro Narrative: Strength is 5/5. Sensorium / Orientation: alert Motor Exam: strength 5/5 throughout Deep Tendon Reflexes: Rt Patellar (L4): 3+, Lt Patellar (L4): 3+, Rt Ankle (S1): 3+ and Lt Ankle (S1): 3+ Deep Tendon Reflexes Back: Rt Patellar (L4): 3+, Lt Patellar (L4): 3+, Rt Ankle (S1): 3+ and Lt Ankle (S1): 3+ Plantar Reflex: Downgoing: bilateral Psych mental status grossly normal Skin no rashes or lesions noted and no wounds General Skin Exam: Negative for jaundice or pallor MDM MDM MDM Narrative Medical decision making narrative: IV was established. He was treated with IV morphine, Toradol and Zofran for his pain and nausea. Since there is no history of trauma imaging is not required. Suspect this is musculoskeletal pain and not related to his herniated disc. Patient was reassessed at 2154. He had improvement. He was discharged home with pain medicine. He was informed that he may have a herniated disc but that was not the cause of his pain this evening. Discharge Plan Triage Chief Complaint: Back ED Provider: Channing Victoria Dx/Rx/DC Orders Clinical Impression: Acute bilateral low back pain without sciatica Instructions: ED Back Sprain/Strain Prescriptions: New hydrocodone-acetaminophen [hydrocodone-acetaminophen] 1 TABLET tablet 1 tab PO Q6H PRN PRN (Reason: Pain) 3 Days Qty: 10 RF: 0 naproxen 500 MG tablet 500 mg PO BID Qty: 14 RF: 0 No Action zonisamide 100 MG capsule 200 mg PO BID RF: 0 levetiracetam 750 MG tablet 1,500 mg PO BID RF: 0 omeprazole 20 MG capsule,delayed release(DR/EC) 20 mg PO DAILY RF: 0 buspirone 5 MG tablet 10 mg PO BID RF: 0 paroxetine HCl 10 MG tablet 20 mg PO DAILY RF: 0 Dulera 8.8 GM HFA aerosol inhaler 1 puff IH BID RF: 0 quetiapine [Seroquel] 50 mg Tablet 50 mg PO BID RF: 0 cephalexin 500 mg capsule 500 mg PO Q6 Qty: 40 RF: 0 clonazepam 0.5 mg tablet 0.5 mg PO QHS RF: 0 sulfamethoxazole-trimethoprim 800-160 mg tablet 1 tab PO BID RF: 0 Primary Care Provider: Jerome Conrad Referrals: Jerome Conrad MD [Primary Care Provider] - 1 Week if not improving Disposition Disposition: Home, Self Care
[2021-07-02] MEDS: Ondansetron 4 MG/2 ML Vial IV (20:59)
[2021-07-02] MEDS: Morphine 4 MG/ML Syringe IV (20:59)
[2021-07-02] MEDS: Ketorolac 15 MG/ML Vial IV (21:00)
[2021-07-02 21:38] VITALS: BP 143/71; PULSE 108; RESP 24; O2SAT 93
[2021-07-02 22:14] VITALS: BP 117/67; PULSE 78; RESP 16
== END 2021-07-02 22:17 | disposition home or self-care (01) ==
PROVIDERS: Emergency Provider Emergency Medicine; PCP Family Medicine
DX: M54.50 Low back pain, unspecified (principal); E66.9 Obesity, unspecified
CPT/HCPCS: 96374; 96375; 99283; A4216; J2405

== ENCOUNTER 2021-07-20 17:03 | Emergency (ER) | payer MEDICAID, SELFPAY ==
[2021-07-20 17:04] VITALS: BP 148/92; PULSE 81; RESP 17; TEMP 37.1; O2SAT 100; BMI 33.7
--- NOTE | 2021-07-20 17:40 | EKG12_ITS ---
Test Reason : MENTAL HEALTH Blood Pressure : / mmHG Vent. Rate : 076 BPM Atrial Rate : 076 BPM P-R Int : 148 ms QRS Dur : 100 ms QT Int : 362 ms P-R-T Axes : 030 014 016 degrees QTc Int : 407 ms Normal sinus rhythm Normal ECG Confirmed by SANTI DALE, NO ([id number]), commissioning editor KEL OJEDA ([id number]) on 07/25/2021 9:58:11 AM Referred By: TRISTON Confirmed By:NO HANCOCK MD
--- NOTE | 2021-07-20 17:48 | CM.ED ---
SOCIAL WORK Received call from Dang with Crisis prior to patient's arrival. Assessment has been completed. Patient with suicidal ideation, plan, and intent. Patient reported plan to hang self. Patient requires hospitalization for stabilization once medically cleared. Staff sulema. MATT Juarez, PROGRAMMING DIRECTOR
[2021-07-20 18:11] LABS: Absolute Lymphocyte Count 1.25 X10^3/uL (0.83-4.51); Absolute Neutrophil Count 5.4 X10^3/uL (2.0-7.7); Basophil# 0.04 X10^3/uL; Basophil% 0.5 % (0-1); Eosinophils% 1.3 % (0-5); Hematocrit 42.4 % (40-54); Lymphocyte # 1.25 X10^3/ul (0.83-4.51); Lymphocyte % 16.7 % (19-41); Mean Corp Hgb Conc 35.4 g/dL (32-36); Mean Corpuscular Hgb 32.4 pg (27.0-32.0); Mean Corpuscular Volume 91.6 fL (80-94); Mean Platelet Vol. 9.2 fl (6.2-12.0); Monocyte# 0.65 X10^3/uL; Monocyte% 8.7 % (0-10); NRBC Flagged by Analyzer 0 % (0-5); Neutrophil # 5.39 X10^3/uL (2.7-7.7); Neutrophil % 72.1 % (47-70); Platelet Count 203 K/mm3 (150-450); RBC Distribution Width SD 40.2 fl (35.1-43.9); Red Blood Count 4.63 M/mm3 (4.6-6.2); White Blood Count 7.5 K/mm3 (4.4-11.0)
[2021-07-20 18:29] LABS: Anion Gap 6 (5-15); BUN 8 mg/dL (7-18); BUN/Creat Ratio 6.7 RATIO (10-20); Calcium,Total 9.2 mg/dL (8.5-10.1); Chloride 109 mmol/L (98-107); EST Glomerular Filtration Rate 72 mL/min (>60); Est Glom Filt Rate - Afr Amer 88 mL/min (>60); Estimated Creatinine Clearance 95.25 ml/min; Glucose 124 mg/dL (74-106); Potassium 3.3 mmol/L (3.5-5.1); Sodium Level 142 mmol/L (136-145)
[2021-07-20 18:45] LABS: Amphetamine Urine VISTA NEGATIVE (<1000 ng/mL); Barbiturate Urine VISTA NEGATIVE (< 200 ng/mL); Benzodiazepine Urine VISTA NEGATIVE (< 200 ng/mL); Cocaine Urine VISTA NEGATIVE (< 300 ng/mL); Ecstacy Urine VISTA NEGATIVE (< 500 ng/mL); Methadone Urine VISTA NEGATIVE (< 300 ng/mL); PCP Urine VISTA NEGATIVE (< 25 ng/mL); THC Urine VISTA POSITIVE (< 50 ng/mL); Vista UDS pH Range 7
[2021-07-20 19:10] VITALS: RESP 16
[2021-07-20 20:00] VITALS: RESP 16
--- NOTE | 2021-07-20 20:28 | EDS_ITS ---
HPI History of Present Illness Chief Complaint: Suicidal Narrative Narrative: 36-year-old male with history of schizophrenia presenting because he stated he was feeling suicidal. He was hearing voices which told him to harm himself. Patient states he does hear this from time to time. It was initially reported that patient was thinking about hanging himself or least putting a rope around his neck. He admits to this however his significant other says this did not occur. She states patient has been acting otherwise normal. He currently is trying to get into the counseling center and see a new psychiatrist. He stopped seeing his last 1 and it he has been stressing out about getting medication although he is missed multiple intake appointments apparently. He states vehemently that he is not suicidal or homicidal currently. He does not have any plan. [facility] Medical History Bipolar 1 disorder Epilepsy Kidney stones PTSD (post-traumatic stress disorder) Schizophrenia Home Medications levetiracetam 1,500 mg PO BID 04/06/20 [History Last Taken 04/06/20 08:00 1500 mg] zonisamide 200 mg PO BID 04/06/20 [History Last Taken 04/06/20 08:00 200 mg] omeprazole 20 mg PO DAILY 04/07/20 [History Last Taken 04/06/20 08:00 20 mg] buspirone 10 mg PO BID 06/14/20 [History Last Taken Unknown] paroxetine HCl 20 mg PO DAILY 06/14/20 [History Last Taken Unknown] clonazepam 0.5 mg PO QHS 05/04/21 [History Last Taken Unknown] furosemide 20 mg PO DAILY 07/20/21 [History Last Taken Unknown] Allergy/AdvReac Type Severity Reaction Status Date / Time carbamazepine Allergy NEEDS Verified 07/20/21 17:05 FOLLOW-UP NSAIDS (Non-Steroidal Allergy Upset Verified 07/20/21 17:05 Anti-Inflamma Stomach phenytoin Allergy NEEDS Verified 07/20/21 17:05 FOLLOW-UP topiramate Allergy NEEDS Verified 07/20/21 17:05 FOLLOW-UP LOXAGATE SODIUM Allergy NEEDS Uncoded 07/20/21 17:05 FOLLOW-UP Surgical History Hx of appendectomy Hx of cholecystectomy Social History household members: family Smoking Status: Current some day smoker tobacco type: e-cigarettes substance use type: does not use ROS ROS ED Constitutional Constitutional ED: Denies chills, fever(s) or sweats Eyes Eyes: Denies blurry vision or change in vision ENT ENT ED: Denies ear pain or sore throat Cardiovascular Cardiovascular: Denies chest pain, palpitations or racing heartbeat Respiratory/Chest Respiratory/Chest: Denies cough, dyspnea or sputum Gastrointestinal Gastrointestinal: Denies abdominal pain, constipation, diarrhea, nausea or vomiting Genitourinary Genitourinary ED: Denies dysuria, hematuria or urinary frequency Musculoskeletal Musculoskeletal: Denies arthralgias, myalgias or neck pain Integumentary Denies abscess, Abrasions or rash Neurologic Neurologic: Denies headache(s), paresthesias or weakness Psychiatric Psychiatric: Reports anxiety and suicidal thoughts; Denies depression or suicidal ideation Endocrine Endocrinology: Denies polydipsia or polyuria EXAM Physical Exam Const Vital Signs: 07/20/21 17:04 07/20/21 19:10 07/20/21 20:00 Temperature 98.8 F Temperature Source Temporal Pulse Rate 81 Respiratory Rate 17 16 16 Blood Pressure 148/92 H Blood Pressure Mean 110 Pulse Ox 100 Oxygen Delivery Method Room Air Positive well nourished, alert and oriented x3 General Appearance ED: Negative for pallor HEENT Reports normocephalic, head/scalp atraumatic and moist mucous membranes Eyes PERRL and EOMs intact bilaterally Neck no lymphadenopathy and supple Chest Wall inspection of chest normal and palpation of chest normal Resp normal respiratory effort and clear to auscultation bilaterally Auscultation: Negative for rales, rhonchi or wheezes Cardio regular rate and regular rhythm GI normal to inspection, nondistended, normoactive bowel sounds and non-distended Auscultation: normoactive bowel sounds Palpation: soft Narrative: Deferred Back/Spine Cervical Spine: Negative for cervical spine tenderness Neuro oriented x3 and CN's II-XII intact bilaterally Sensorium / Orientation: alert Motor Exam: strength 5/5 throughout Psych mental status grossly normal Psych Narrative: Does not admit to suicidal homicidal ideation Attitude: No agitated Skin no rashes or lesions noted and no wounds General Skin Exam: Negative for jaundice or pallor MDM MDM MDM Narrative Medical decision making narrative: Patient's lab work is unremarkable and is medically cleared to speak with the counseling center. Patient was referred here by the counseling center because of what they heard from him at home and he seemed to be escalating however when he arrived here the believe he is very calm and he does not have a plan. They feel he is safe to be discharged home. I did speak with his significant other who states that none of this really occurred and he did not try to hurt himself. He has not been expressing suicidal or homicidal ideation. She feels very comfortable having him come home and she states she is home all weekend and can watch him. She will try to help him get to his new appointment so he can get medication refills. This was discussed with Dang from crisis and she is comfortable with him going home at this point. He is discharged home in stable condition. Impression: 1. History of schizophrenia 2. Audible hallucinations Lab Data Labs: Laboratory Results - last 24 hr 07/20/21 07/20/21 07/20/21 17:50 17:50 17:50 WBC 7.5 RBC 4.63 Hgb 15.0 Hct 42.4 MCV 91.6 MCH 32.4 H MCHC 35.4 RDW Std Deviation 40.2 RDW Coeff of Glenny 12.0 Plt Count 203 MPV 9.2 Immature Gran % (Auto) 0.700 Neut % (Auto) 72.1 H Lymph % (Auto) 16.7 L Laurel % (Auto) 8.7 Eos % (Auto) 1.3 Baso % (Auto) 0.5 Absolute Neuts (auto) 5.4 Absolute Lymphs (auto) 1.25 Nucleated RBC % 0 Sodium 142 Potassium 3.3 L Chloride 109 H Carbon Dioxide 27.0 Anion Gap 6 BUN 8 Creatinine 1.20 Estim Creat Clear Calc 95.25 Est GFR (MDRD) Af Amer 88 Est GFR (MDRD) Non-Af 72 BUN/Creatinine Ratio 6.7 L Glucose 124 H Calcium 9.2 Urine Opiates Screen Urine Methadone Screen Ur Barbiturates Screen Ur Phencyclidine Scrn Ur Amphetamines Screen U Methamphetamin-MDMA U Benzodiazepines Scrn Urine Cocaine Screen U Cannabinoids Screen Ur Drug Screen Comment Ethyl Alcohol 4.0 07/20/21 18:04 WBC RBC Hgb Hct MCV MCH MCHC RDW Std Deviation RDW Coeff of Glenny Plt Count MPV Immature Gran % (Auto) Neut % (Auto) Lymph % (Auto) Laurel % (Auto) Eos % (Auto) Baso % (Auto) Absolute Neuts (auto) Absolute Lymphs (auto) Nucleated RBC % Sodium Potassium Chloride Carbon Dioxide Anion Gap BUN Creatinine Estim Creat Clear Calc Est GFR (MDRD) Af Amer Est GFR (MDRD) Non-Af BUN/Creatinine Ratio Glucose Calcium Urine Opiates Screen NEGATIVE Urine Methadone Screen NEGATIVE Ur Barbiturates Screen NEGATIVE Ur Phencyclidine Scrn NEGATIVE Ur Amphetamines Screen NEGATIVE U Methamphetamin-MDMA NEGATIVE U Benzodiazepines Scrn NEGATIVE Urine Cocaine Screen NEGATIVE U Cannabinoids Screen POSITIVE H Ur Drug Screen Comment Ethyl Alcohol Discharge Plan Triage Chief Complaint: Suicidal Other Complaint: Mental Health ED Provider: Antoine Nava Dx/Rx/DC Orders Instructions: CONTRACT, No Harm, ED Schizophrenia, General Prescriptions: No Action zonisamide 100 MG capsule 200 mg PO BID RF: 0 levetiracetam 750 MG tablet 1,500 mg PO BID RF: 0 omeprazole 20 MG capsule,delayed release(DR/EC) 20 mg PO DAILY RF: 0 buspirone 5 MG tablet 10 mg PO BID RF: 0 paroxetine HCl 10 MG tablet 20 mg PO DAILY RF: 0 clonazepam 0.5 mg tablet 0.5 mg PO QHS RF: 0 furosemide 20 mg tablet 20 mg PO DAILY RF: 0 Primary Care Provider: Jerome Conrad Referrals: Jerome Conrad MD [Primary Care Provider] - Disposition Disposition: Home, Self Care
== END 2021-07-20 20:35 | disposition home or self-care (01) ==
PROVIDERS: Emergency Provider Student in an Organized Health Care Education/Training Program; PCP Family Medicine
DX: R44.0 Auditory hallucinations (principal); F17.290 Nicotine dependence, other tobacco product, uncomplicated; R45.851 Suicidal ideations; G40.909 Epilepsy, unspecified, not intractable, without status epilepticus; Z79.899 Other long term (current) drug therapy
CPT/HCPCS: 80048; 80307; 82077; 85025; 87426; 93005; 99282

== ENCOUNTER 2021-07-28 15:51 | Emergency (ER) | payer MEDICAID, SELFPAY ==
[2021-07-28 15:52] VITALS: BP 140/79; PULSE 89; RESP 16; TEMP 36.2; O2SAT 98; BMI 28.1
--- NOTE | 2021-07-28 16:14 | CT_ITS ---
EXAM: CT ABDOMEN AND PELVIS WITHOUT INTRAVENOUS CONTRAST : 1985 CLINICAL INDICATION: Pain right flank TECHNIQUE: Helically acquired images were obtained of the abdomen and pelvis without intravenous contrast. This CT exam was performed using one or more of the following dose reduction techniques: automated exposure control, adjustment of the mA and/or kV according to patient size, and/or use of iterative reconstruction technique. This report was created using [employer] report generation technology. COMPARISON: 11/24/2020 FINDINGS: LOWER THORAX: Unremarkable. Lung bases are clear. No cardiomegaly. No significant pericardial effusion. ABDOMEN: LIVER: The liver is decreased in attenuation compatible fatty infiltration. GALLBLADDER AND BILE DUCTS: There are surgical clips from a cholecystectomy. There are surgical clips at the base of the cecum from a previous appendectomy. No intra- or extrahepatic biliary ductal dilation. PANCREAS: Unremarkable. No focal cystic mass. SPLEEN: Unremarkable. Normal size without focal cystic or solid mass. ADRENALS: Unremarkable. No nodules. KIDNEYS AND URETERS: Unremarkable. Normal renal size and position. No hydronephrosis. STOMACH AND BOWEL: Unremarkable. No stomach or bowel distention. No focal inflammatory change. PELVIS: APPENDIX: See above. BLADDER: Unremarkable. REPRODUCTIVE: Unremarkable as visualized. No mass. ABDOMEN and PELVIS: INTRAPERITONEAL SPACE: Unremarkable. No ascites or other fluid collection. No free air. BONES/JOINTS: Unremarkable. No suspicious lytic or blastic abnormality. SOFT TISSUES: Unremarkable. No discrete abdominal or pelvic wall hernia. VASCULATURE: Unremarkable. Abdominal aorta is non-dilated. LYMPH NODES: Unremarkable. No enlarged lymph nodes. CT/Abdomen/Pelvis without Cont IMPRESSION: No acute findings in the abdomen or pelvis. Individualized dose optimization techniques were used for this CT. at 1718 Reported and signed by: Ayden Frances MD Electronically Signed: Ayden Frances MD at 17:17 EST Tel , Service support ,
--- NOTE | 2021-07-28 16:16 | EDS_ITS ---
HPI History of Present Illness Chief Complaint: Flank Pain Informant: patient Narrative Narrative: Patient states he started last night with right flank pain. It was sudden onset and sharp. When the pain is bad it radiates around the front but when it goes down a bit it just is in the back. He states he is urinating but it seems to require more pressure than normal. When the pain is bad he gets nauseated. Urine has no discharge. He has not seen blood. He has had a kidney stone that acted like this before. No recent trauma. No numbness or tingling. Of note, he did see nurse practitioner recently for regular physical. It was noted that he had a little bit of swelling around his ankles from the socks. He was placed on Lasix a couple weeks ago for that. He has no history of dyspnea or congestive heart failure. [facility] Medical History Bipolar 1 disorder Epilepsy Kidney stones PTSD (post-traumatic stress disorder) Schizophrenia Home Medications levetiracetam 1,500 mg PO BID 04/06/20 [History Last Taken 04/06/20 08:00 1500 mg] zonisamide 200 mg PO BID 04/06/20 [History Last Taken 04/06/20 08:00 200 mg] omeprazole 20 mg PO DAILY 04/07/20 [History Last Taken 04/06/20 08:00 20 mg] buspirone 10 mg PO BID 06/14/20 [History Last Taken Unknown] paroxetine HCl 20 mg PO DAILY 06/14/20 [History Last Taken Unknown] clonazepam 0.5 mg PO QHS 05/04/21 [History Last Taken Unknown] furosemide 20 mg PO DAILY 07/20/21 [History Last Taken Unknown] ondansetron 4 mg PO Q8H PRN #10 tab 07/28/21 [Rx Last Taken Unknown] Allergy/AdvReac Type Severity Reaction Status Date / Time carbamazepine Allergy NEEDS Verified 07/28/21 15:52 FOLLOW-UP NSAIDS (Non-Steroidal Allergy Upset Verified 07/28/21 15:52 Anti-Inflamma Stomach phenytoin Allergy NEEDS Verified 07/28/21 15:52 FOLLOW-UP topiramate Allergy NEEDS Verified 07/28/21 15:52 FOLLOW-UP LOXAGATE SODIUM Allergy NEEDS Uncoded 07/28/21 15:52 FOLLOW-UP Surgical History Hx of appendectomy Hx of cholecystectomy Social History household members: family Smoking Status: Current some day smoker tobacco type: e-cigarettes substance use type: does not use ROS ROS ED Constitutional Constitutional ED: Denies chills or fever(s) ENT ENT ED: Denies rhinorrhea or sore throat Cardiovascular Cardiovascular: Denies chest pain or palpitations Respiratory/Chest Respiratory/Chest: Denies cough or dyspnea Gastrointestinal Gastrointestinal: Reports abdominal pain and nausea; Denies diarrhea or vomiting Genitourinary Genitourinary ED: Reports urinary frequency and other Details: See history of present illness. Musculoskeletal Musculoskeletal: Reports back pain; Denies arthralgias or myalgias Integumentary Denies rash Neurologic Neurologic: Denies headache(s) or weakness Psychiatric Psychiatric: Reports anxiety and depression Endocrine Endocrinology: Denies polydipsia or polyuria Allergic/Immunologic Allergic/Immunologic ED: Denies mouth swelling or urticaria EXAM Physical Exam Const Vital Signs: 07/28/21 15:52 Temperature 97.2 F L Temperature Source Temporal Pulse Rate 89 Respiratory Rate 16 Blood Pressure 140/79 H Blood Pressure Mean 99 Pulse Ox 98 Oxygen Delivery Method Room Air Positive well nourished and well developed General Appearance ED: well developed and NAD HEENT Reports moist mucous membranes Eyes General Eye ED: Negative for pale conjunctiva or scleral icterus Neck no JVD Chest Wall inspection of chest normal Resp normal respiratory effort and clear to auscultation bilaterally Cardio regular rate and regular rhythm GI normal to inspection, nondistended, normoactive bowel sounds, non-tender and non-distended Palpation: soft Back/Spine Back/Spine Narrative: He does have CVA tenderness on the right. But it is also tender with just soft palpation. No rashes. No swelling. Extremity normal to inspection Neuro oriented x3 Sensorium / Orientation: alert Psych mental status grossly normal Skin no rashes or lesions noted MDM MDM MDM Narrative Medical decision making narrative: Patient's blood work showed normal white count and hemoglobin and rest of CBC. Electrolytes showed some minimal decrease of potassium that should self correct with diet. This is not the cause of his symptoms. Minimal elevation of glucose of 134. Urinalysis is normal. CT scan of the abdomen and without contrast is normal. Although the patient has had kidney stones and states this feels like 1, there is no sign of stone on the studies. He also has soreness with just a light skin touch. This may be myofascial pain. He can take Tylenol for this. I will write for some Zofran because he may be able to take some NSAIDs if he takes Zofran and Prilosec. They cause GI upset but no true allergy. This does not require narcotics. Lab Data Attestation: I reviewed the patient's lab results. Labs: Laboratory Results - last 24 hr 07/28/21 07/28/21 07/28/21 16:25 16:25 16:29 WBC 5.7 RBC 4.51 L Hgb 14.4 Hct 41.5 MCV 92.0 MCH 31.9 MCHC 34.7 RDW Std Deviation 40.2 RDW Coeff of Glenny 11.9 Plt Count 206 MPV 9.6 Immature Gran % (Auto) 0.500 Neut % (Auto) 67.8 Lymph % (Auto) 18.9 L [place] % (Auto) 9.4 Eos % (Auto) 2.7 Baso % (Auto) 0.7 Absolute Neuts (auto) 3.8 Absolute Lymphs (auto) 1.07 Nucleated RBC % 0 Sodium 141 Potassium 3.2 L Chloride 108 H Carbon Dioxide 25.0 Anion Gap 8 BUN 14 Creatinine 1.30 Estim Creat Clear Calc 87.92 Est GFR (MDRD) Af Amer 80 Est GFR (MDRD) Non-Af 66 BUN/Creatinine Ratio 10.8 Glucose 134 H Calcium 8.8 Urine Color Yellow Urine Clarity Clear Urine pH 7.0 Ur Specific Martin 1.010 Urine Protein Negative Urine Glucose (UA) Normal Urine Ketones Negative Urine Occult Blood Negative Urine Nitrite Negative Urine Bilirubin Negative Urine Urobilinogen Normal Ur Leukocyte Esterase Negative Urine RBC 0-5 SEEN Urine WBC 0-5 SEEN Ur Squamous Epith Cells 0 SEEN Urine Bacteria 0 SEEN Urine Mucus 0 SEEN Radiography Diagnostic Testing: Clinical Impression(s) from Imaging Studies Abdomen/Pelvis CT 07/28/21 16:14 IMPRESSION: No acute findings in the abdomen or pelvis. Individualized dose optimization techniques were used for this CT. at 1718 Reported and signed by: Ayden Frances MD Electronically Signed: Ayden Frances MD at 17:17 EST Tel , Service support , Discharge Plan Triage Chief Complaint: Flank Pain ED Provider: Tony Ramos Dx/Rx/DC Orders Clinical Impression: Acute right flank pain Instructions: ED Flank Pain, Uncertain Cause Prescriptions: New ondansetron 4 mg tablet,disintegrating 4 mg PO Q8H PRN (Reason: nausea and vomiting) Qty: 10 RF: 0 No Action zonisamide 100 MG capsule 200 mg PO BID RF: 0 levetiracetam 750 MG tablet 1,500 mg PO BID RF: 0 omeprazole 20 MG capsule,delayed release(DR/EC) 20 mg PO DAILY RF: 0 buspirone 5 MG tablet 10 mg PO BID RF: 0 paroxetine HCl 10 MG tablet 20 mg PO DAILY RF: 0 clonazepam 0.5 mg tablet 0.5 mg PO QHS RF: 0 furosemide 20 mg tablet 20 mg PO DAILY RF: 0 Primary Care Provider: Jerome Conrad Referrals: Jerome Conrad MD [Primary Care Provider] - 3-5 Days if not improving Disposition Disposition: Home, Self Care
[2021-07-28] MEDS: 0.9% Normal Saline 1,000 ML 1000 ML IV (16:29)
[2021-07-28] MEDS: Ondansetron 4 MG/2 ML Vial IV (16:29)
[2021-07-28] MEDS: Ketorolac 15 MG/ML Vial IV (16:29)
[2021-07-28 16:36] LABS: Absolute Lymphocyte Count 1.07 X10^3/uL (0.83-4.51); Absolute Neutrophil Count 3.8 X10^3/uL (2.0-7.7); Basophil# 0.04 X10^3/uL; Basophil% 0.7 % (0-1); Eosinophil# 0.15 X10^3/uL; Eosinophils% 2.7 % (0-5); Hematocrit 41.5 % (40-54); Hemoglobin 14.4 g/dL (13.0-16.5); Lymphocyte # 1.07 X10^3/ul (0.83-4.51); Lymphocyte % 18.9 % (19-41); Mean Corp Hgb Conc 34.7 g/dL (32-36); Mean Corpuscular Hgb 31.9 pg (27.0-32.0); Mean Platelet Vol. 9.6 fl (6.2-12.0); Monocyte# 0.53 X10^3/uL; Monocyte% 9.4 % (0-10); NRBC Flagged by Analyzer 0 % (0-5); Neutrophil # 3.84 X10^3/uL (2.7-7.7); Neutrophil % 67.8 % (47-70); Platelet Count 206 K/mm3 (150-450); RBC Distribution Width CV 11.9 % (11.6-14.6); RBC Distribution Width SD 40.2 fl (35.1-43.9); Red Blood Count 4.51 M/mm3 (4.6-6.2); White Blood Count 5.7 K/mm3 (4.4-11.0)
[2021-07-28 16:45] LABS: Bacteria 0 SEEN /hpf (None Seen); Mucous, Urine 0 SEEN /hpf (<or=2+); Squamous Epithelial Cells - UA 0 SEEN /hpf (0-5)
[2021-07-28 16:45] LABS: Anion Gap 8 (5-15); BUN 14 mg/dL (7-18); BUN/Creat Ratio 10.8 RATIO (10-20); Calcium,Total 8.8 mg/dL (8.5-10.1); Chloride 108 mmol/L (98-107); EST Glomerular Filtration Rate 66 mL/min (>60); Est Glom Filt Rate - Afr Amer 80 mL/min (>60); Estimated Creatinine Clearance 87.92 ml/min; Glucose 134 mg/dL (74-106); Potassium 3.2 mmol/L (3.5-5.1); Sodium Level 141 mmol/L (136-145)
[2021-07-28 16:49] LABS: Color, Urine Yellow (Yellow); Glucose, Dipstick Normal (Normal); Ketone-Dipstick Negative (Negative); Leukocyte Esterase-Dipstick Negative /ul (Negative); Nitrite-Dipstick Negative (Negative); Occult Blood-Urine Negative /ul (Negative); Protein-Dipstick Negative (Negative); Urine Bilirubin Dipstick Negative (Negative); Urine Clarity Clear (Clear); Urine Urobilinogen Normal (Normal)
[2021-07-28 16:56] LABS: White Blood Cells 0-5 SEEN /hpf (0-5)
[2021-07-28 16:57] LABS: Red Blood Cells-Urine 0-5 SEEN /hpf (0-5)
[2021-07-28 17:55] VITALS: BP 103/67; PULSE 74; RESP 16; O2SAT 100
--- NOTE | 2021-07-28 17:56 | ED.RN ---
THIS NURSE REVIEWED D/C INSTRUCTIONS WITH PT. PT VERBALIZED UNDERSTANDING OF INSTRUCTIONS. IV D/C. IV CATHETER INTACT. PT TOLERATED WELL. PT DENIES FURTHER NEEDS OR QUESTIONS AT THIS TIME.
== END 2021-07-28 17:58 | disposition home or self-care (01) ==
PROVIDERS: Emergency Provider Emergency Medicine; PCP Family Medicine; Visit Provider Emergency Medicine
DX: R10.9 Unspecified abdominal pain (principal); F20.9 Schizophrenia, unspecified; F31.9 Bipolar disorder, unspecified; G40.909 Epilepsy, unspecified, not intractable, without status epilepticus; R11.0 Nausea; M54.9 Dorsalgia, unspecified; Z87.442 Personal history of urinary calculi; F43.10 Post-traumatic stress disorder, unspecified; Z79.899 Other long term (current) drug therapy; F17.290 Nicotine dependence, other tobacco product, uncomplicated; R35.0 Frequency of micturition
CPT/HCPCS: 74176; 80048; 81001; 85025; 96374; 96375; 99283; J2405

== ENCOUNTER 2021-08-14 10:46 | Emergency (ER) | payer MEDICAID, SELFPAY ==
[2021-08-14 10:47] VITALS: BP 137/73; PULSE 67; RESP 14; TEMP 36.7; O2SAT 100; BMI 33.1
--- NOTE | 2021-08-14 11:15 | CT_ITS ---
STUDY: CT BRAIN WITHOUT CONTRAST REASON FOR EXAM: Male, 36 years old. Right facial pain and bruising following a syncopal episode. RADIATION DOSAGE (If Supplied By Facility): CTDIvol = ( 47.06 ) mGy, DLP = ( 819.74 ) mGycm TECHNIQUE: Transaxial CT imaging of the brain was performed without administration of intravenous contrast material. Individualized dose optimization techniques were used for this CT. COMPARISON: Comparison is made with prior study 05/04/2021. FINDINGS: Mild scalp hematoma overlying the superior aspect of the left parietal bone. Normal calvarium. Normal size ventricles and extra-axial spaces for the patient''s age. Normal white matter tracts of the cerebral hemispheres. Normal basal ganglia and thalami. Normal brainstem. Normal cerebellum. There is no intracranial hemorrhage. There are no findings of an acute ischemic infarction. Normal visualized paranasal sinuses. CT/Brain/Head without Contrast IMPRESSION: Normal unenhanced CT scan of the brain. Electronically Signed: Curtis Barbosa MD at 12:10 EST ,
--- NOTE | 2021-08-14 11:15 | EKG12_ITS ---
Test Reason : SYNCOPE Blood Pressure : / mmHG Vent. Rate : 054 BPM Atrial Rate : 054 BPM P-R Int : 170 ms QRS Dur : 104 ms QT Int : 420 ms P-R-T Axes : 001 029 005 degrees QTc Int : 398 ms Sinus bradycardia Otherwise normal ECG Confirmed by SANTI DALE, NO ([id number]), industrial editor JANE DAVALOS ([id number]) on 08/15/2021 9:16:17 AM Referred By: TRISTON Confirmed By:NO HANCOCK MD
--- NOTE | 2021-08-14 11:40 | EDS_ITS ---
HPI History of Present Illness Chief Complaint: Syncope Informant: patient Narrative Narrative: Patient presents with slight right-sided headache. Patient states that he thinks he passed out yesterday. He had been sitting at the table. He evidently fell, passed out, or may have had a seizure and hit his head. No nausea vomiting. He states nothing hurts the sides of his head. He is taking his Keppra. He does not feel ill in any way. He states his only con cern is his head because it is a bit sore. He has not been ill recently. He has no nausea vomiting. He has no visual complaints. Nothing makes his symptoms better or worse. He has had lightheaded episodes before. He also has seizures. But he does not know for sure what happened. [facility] Medical History Bipolar 1 disorder Epilepsy Kidney stones PTSD (post-traumatic stress disorder) Schizophrenia Home Medications levetiracetam 1,500 mg PO BID 04/06/20 [History Last Taken 04/06/20 08:00 1500 mg] zonisamide 200 mg PO BID 04/06/20 [History Last Taken 04/06/20 08:00 200 mg] omeprazole 20 mg PO DAILY 04/07/20 [History Last Taken 04/06/20 08:00 20 mg] buspirone 10 mg PO BID 06/14/20 [History Last Taken Unknown] paroxetine HCl 20 mg PO DAILY 06/14/20 [History Last Taken Unknown] clonazepam 0.5 mg PO QHS 05/04/21 [History Last Taken Unknown] furosemide 20 mg PO DAILY 07/20/21 [History Last Taken Unknown] ondansetron 4 mg PO Q8H PRN #10 tab 07/28/21 [Rx Last Taken Unknown] Allergy/AdvReac Type Severity Reaction Status Date / Time carbamazepine Allergy NEEDS Verified 08/14/21 10:47 FOLLOW-UP NSAIDS (Non-Steroidal Allergy Upset Verified 08/14/21 10:47 Anti-Inflamma Stomach phenytoin Allergy NEEDS Verified 08/14/21 10:47 FOLLOW-UP topiramate Allergy NEEDS Verified 08/14/21 10:47 FOLLOW-UP LOXAGATE SODIUM Allergy NEEDS Uncoded 08/14/21 10:47 FOLLOW-UP Surgical History Hx of appendectomy Hx of cholecystectomy Social History household members: family Smoking Status: Current some day smoker tobacco type: e-cigarettes substance use type: does not use ROS ROS ED Constitutional Constitutional ED: Denies chills, fever(s) or sweats Eyes Eyes: Denies blurry vision, change in vision or diplopia ENT ENT ED: Denies ear pain or rhinorrhea Cardiovascular Cardiovascular: Denies chest pain or palpitations Respiratory/Chest Respiratory/Chest: Denies cough or dyspnea Gastrointestinal Gastrointestinal: Denies nausea or vomiting Genitourinary Genitourinary ED: Denies hematuria Musculoskeletal Musculoskeletal: Denies arthralgias, back pain, myalgias or neck pain Integumentary Reports Abrasions Neurologic Neurologic: Reports headache(s); Denies paresthesias or weakness Psychiatric Psychiatric: Reports anxiety and depression Endocrine Endocrinology: Denies polydipsia or polyuria Allergic/Immunologic Allergic/Immunologic ED: Denies urticaria EXAM Physical Exam Const Vital Signs: 08/14/21 10:47 08/14/21 10:49 08/14/21 11:46 Temperature 98.1 F Temperature Source Temporal Pulse Rate 67 60 Respiratory Rate 14 15 Respiratory Effort Normal Non-Labored Blood Pressure 137/73 H Blood Pressure Mean 94 Pulse Ox 100 97 Oxygen Delivery Method Room Air Room Air Positive well nourished and well developed General Appearance ED: well developed and NAD; Negative for cyanotic or diaphoretic HEENT Reports moist mucous membranes HEENT Narrative: Patient does have some contusion around his right eye not involving the eye. He also has an abrasion to the right forehead. Eyes PERRL and EOMs intact bilaterally Eyes Narrative: Contusion around his eye but I see no subconjunctival hemorrhage. Pupillary response is normal. No photophobia. Neck supple General: Negative for tenderness Chest Wall inspection of chest normal Resp normal respiratory effort and clear to auscultation bilaterally Cardio regular rate and regular rhythm GI normal to inspection, nondistended, normoactive bowel sounds and non-tender Palpation: soft Back/Spine no CVA tenderness Cervical Spine: Negative for cervical spine tenderness Thoracic Spine / Upper Back: Negative for thoracic spinal tenderness or paraspinal muscle tenderness Lumbar Spine / Lower Back: Negative for lumbar spinal tenderness Extremity normal to inspection General Extremety ED: Negative for tenderness Neuro oriented x3 Sensorium / Orientation: alert Psych mental status grossly normal Skin no rashes or lesions noted MDM MDM MDM Narrative Medical decision making narrative: Blood work shows normal white count hemoglobin. Electrolytes show no marked abnormalities. He does have a slight elevation in the creatinine of 1.57. I think he can drink more fluids to help with this. Potassium is low but is better than his average. CT shows no acute process. EKG showed no acute process. Think the patient is safe for discharge. I do not know if he actually had syncopal episode or possibly a breakthrough seizure. I think he is still appropriate for follow-up. Lab Data Attestation: I reviewed the patient's lab results. Labs: Laboratory Results - last 24 hr 08/14/21 08/14/21 11:30 11:30 WBC 6.1 RBC 4.41 L Hgb 14.2 Hct 41.3 MCV 93.7 MCH 32.2 H MCHC 34.4 RDW Std Deviation 41.7 RDW Coeff of Glenny 12.1 Plt Count 211 MPV 10.2 Immature Gran % (Auto) 0.200 Neut % (Auto) 79.0 H Lymph % (Auto) 11.4 L [place] % (Auto) 7.9 Eos % (Auto) 1.2 Baso % (Auto) 0.3 Absolute Neuts (auto) 4.8 Absolute Lymphs (auto) 0.69 L Nucleated RBC % 0 Sodium 140 Potassium 3.4 L Chloride 110 H Carbon Dioxide 24.0 Anion Gap 6 BUN 11 Creatinine 1.57 H Estim Creat Clear Calc 72.80 Est GFR (MDRD) Af Amer 64 Est GFR (MDRD) Non-Af 53 L BUN/Creatinine Ratio 7.0 L Glucose 96 Calcium 8.7 Radiography Diagnostic Testing: Clinical Impression(s) from Imaging Studies Brain CT 08/14/21 11:15 IMPRESSION: Normal unenhanced CT scan of the brain. Electronically Signed: Curtis Barbosa MD at 12:10 EST , EKG Initial EKG: Comments: EKG done for syncope read by me shows sinus rhythm with a bradycardic rate at 54. No ventricular ectopy. No acute ST elevation or depression. SC interval, QRS duration and QTc are normal. Overall this is similar to November and June 2021. In November he had a heart rate at 57 also. Discharge Plan Triage Chief Complaint: Syncope ED Provider: Tony Ramos Dx/Rx/DC Orders Clinical Impression: Syncope, CHI (closed head injury) Instructions: ED Fainting, Uncertain Cause Prescriptions: No Action zonisamide 100 MG capsule 200 mg PO BID RF: 0 levetiracetam 750 MG tablet 1,500 mg PO BID RF: 0 omeprazole 20 MG capsule,delayed release(DR/EC) 20 mg PO DAILY RF: 0 buspirone 5 MG tablet 10 mg PO BID RF: 0 paroxetine HCl 10 MG tablet 20 mg PO DAILY RF: 0 clonazepam 0.5 mg tablet 0.5 mg PO QHS RF: 0 furosemide 20 mg tablet 20 mg PO DAILY RF: 0 ondansetron 4 mg tablet,disintegrating 4 mg PO Q8H PRN (Reason: nausea and vomiting) Qty: 10 RF: 0 Primary Care Provider: Jerome Conrad Referrals: Jerome Conrad MD [Primary Care Provider] - 3-5 Days if not improving Disposition Disposition: Home, Self Care
[2021-08-14 11:43] LABS: Absolute Lymphocyte Count 0.69 X10^3/uL (0.83-4.51); Absolute Neutrophil Count 4.8 X10^3/uL (2.0-7.7); Basophil# 0.02 X10^3/uL; Basophil% 0.3 % (0-1); Eosinophil# 0.07 X10^3/uL; Eosinophils% 1.2 % (0-5); Hematocrit 41.3 % (40-54); Hemoglobin 14.2 g/dL (13.0-16.5); Lymphocyte # 0.69 X10^3/ul (0.83-4.51); Lymphocyte % 11.4 % (19-41); Mean Corp Hgb Conc 34.4 g/dL (32-36); Mean Corpuscular Hgb 32.2 pg (27.0-32.0); Mean Corpuscular Volume 93.7 fL (80-94); Mean Platelet Vol. 10.2 fl (6.2-12.0); Monocyte# 0.48 X10^3/uL; Monocyte% 7.9 % (0-10); NRBC Flagged by Analyzer 0 % (0-5); Neutrophil # 4.78 X10^3/uL (2.7-7.7); Platelet Count 211 K/mm3 (150-450); RBC Distribution Width CV 12.1 % (11.6-14.6); RBC Distribution Width SD 41.7 fl (35.1-43.9); Red Blood Count 4.41 M/mm3 (4.6-6.2); White Blood Count 6.1 K/mm3 (4.4-11.0)
[2021-08-14 11:46] VITALS: PULSE 60; RESP 15; O2SAT 97
[2021-08-14 11:50] LABS: Anion Gap 6 (5-15); BUN 11 mg/dL (7-18); Calcium,Total 8.7 mg/dL (8.5-10.1); Chloride 110 mmol/L (98-107); Creatinine, Serum 1.57 mg/dL (0.70-1.30); EST Glomerular Filtration Rate 53 mL/min (>60); Est Glom Filt Rate - Afr Amer 64 mL/min (>60); Glucose 96 mg/dL (74-106); Potassium 3.4 mmol/L (3.5-5.1); Sodium Level 140 mmol/L (136-145)
[2021-08-14 13:15] VITALS: BP 131/74; PULSE 61; RESP 14; O2SAT 98
== END 2021-08-14 13:15 | disposition home or self-care (01) ==
PROVIDERS: Emergency Provider Emergency Medicine; PCP Family Medicine; Visit Provider Emergency Medicine
DX: S00.11XA Contusion of right eyelid and periocular area, initial encounter (principal); F20.9 Schizophrenia, unspecified; F31.9 Bipolar disorder, unspecified; G40.909 Epilepsy, unspecified, not intractable, without status epilepticus; S00.81XA Abrasion of other part of head, initial encounter; R55 Syncope and collapse; F17.290 Nicotine dependence, other tobacco product, uncomplicated; W19.XXXA Unspecified fall, initial encounter; Y93.9 Activity, unspecified; Y92.9 Unspecified place or not applicable; Z87.442 Personal history of urinary calculi; F43.10 Post-traumatic stress disorder, unspecified; Z79.899 Other long term (current) drug therapy
CPT/HCPCS: 70450; 80048; 85025; 93005; 99282; A4216

== ENCOUNTER 2021-08-28 20:17 | Emergency (ER) | payer MEDICAID, SELFPAY ==
[2021-08-28 20:17] VITALS: BP 116/76; PULSE 66; RESP 16; TEMP 36.7; O2SAT 99; BMI 30.5
[2021-08-28] MEDS: 0.9% Normal Saline 1,000 ML 1000 ML IV (22:05)
[2021-08-28 22:14] LABS: Absolute Lymphocyte Count 1.14 X10^3/uL (0.83-4.51); Absolute Neutrophil Count 4.1 X10^3/uL (2.0-7.7); Basophil# 0.03 X10^3/uL; Basophil% 0.5 % (0-1); Eosinophil# 0.12 X10^3/uL; Hematocrit 41.5 % (40-54); Hemoglobin 15.2 g/dL (13.0-16.5); Lymphocyte # 1.14 X10^3/ul (0.83-4.51); Lymphocyte % 19.3 % (19-41); Mean Corp Hgb Conc 36.6 g/dL (32-36); Mean Corpuscular Hgb 33.6 pg (27.0-32.0); Mean Corpuscular Volume 91.6 fL (80-94); Mean Platelet Vol. 11.9 fl (6.2-12.0); Monocyte# 0.52 X10^3/uL; Monocyte% 8.8 % (0-10); NRBC Flagged by Analyzer 0 % (0-5); Neutrophil % 69.2 % (47-70); POSITIVE COUNT YES; Platelet Count 126 K/mm3 (150-450); RBC Distribution Width CV 12.1 % (11.6-14.6); RBC Distribution Width SD 40.3 fl (35.1-43.9); Red Blood Count 4.53 M/mm3 (4.6-6.2); White Blood Count 5.9 K/mm3 (4.4-11.0)
[2021-08-28 22:36] LABS: Anion Gap 5 (5-15); BUN 12 mg/dL (7-18); BUN/Creat Ratio 8.8 RATIO (10-20); Calcium,Total 9.1 mg/dL (8.5-10.1); Chloride 112 mmol/L (98-107); Creatinine, Serum 1.36 mg/dL (0.70-1.30); Differential Indicated SCAN CRITERIA MET; EST Glomerular Filtration Rate 63 mL/min (>60); Est Glom Filt Rate - Afr Amer 76 mL/min (>60); Estimated Creatinine Clearance 84.05 ml/min; Glucose 93 mg/dL (74-106); Potassium 3.7 mmol/L (3.5-5.1); Sodium Level 142 mmol/L (136-145)
[2021-08-28 22:37] LABS: Anisocytosis RARE; Macrocytosis RARE; Platelet Estimate SLT DEC (ADEQ); Red Cell Morphology N CHROM NORMAL (NORM C&C)
--- NOTE | 2021-08-28 23:00 | EX.ED.DYSGE1 ---
HPI History of Present Illness Chief Complaint: Nausea/Vomiting/Diarrhea Detail of Chief Complaint: Upper respiratory and GI symptoms for the past 2 weeks Informant: patient Onset/Context/Timing Onset: Weeks Context: Sudden Onset Timing: Intermittent Quality: Watery diarrhea and upper respiratory symptoms Location: Respiratory and GI Current Severity: Mild Maximum Severity: Severe Worsened by: Nothing Relieved by: Nothing Associated Symptoms Associated Symptoms: Per HPI Narrative Narrative: Patient is a 36-year-old male who presents because of diarrhea for the past 2 weeks. He was seen at [facility] and told he had a viral infection. He had a negative Covid test at that time. He was placed on Bentyl for his cramping pain. He was instructed to call his doctor, which she did not. Patient reports intermittent headache. He denies photophobia, change in vision or blurred vision. He denies ringing in his ears, decreased hearing or drainage from his ears. He does report nasal congestion postnasal drainage with mild sore throat. He does endorse cough which is nonproductive. He denies pleuritic pain. He does endorse nausea and diarrhea. He denies vomiting. He does endorse myalgias without arthralgias. He has not noted a rash. He denies any ill contacts. Prior similar symptoms: Yes Recent Illness/Hospitalization: Yes [facility] Medical History Bipolar 1 disorder Epilepsy Kidney stones PTSD (post-traumatic stress disorder) Schizophrenia Home Medications levetiracetam 1,500 mg PO BID 04/06/20 [History Last Taken 04/06/20 08:00 1500 mg] zonisamide 200 mg PO BID 04/06/20 [History Last Taken 04/06/20 08:00 200 mg] omeprazole 20 mg PO DAILY 04/07/20 [History Last Taken 04/06/20 08:00 20 mg] buspirone 10 mg PO BID 06/14/20 [History Last Taken Unknown] paroxetine HCl 20 mg PO DAILY 06/14/20 [History Last Taken Unknown] clonazepam 0.5 mg PO QHS 05/04/21 [History Last Taken Unknown] dicyclomine 10 mg PO TID PRN 08/28/21 [History Last Taken Unknown] Allergy/AdvReac Type Severity Reaction Status Date / Time carbamazepine Allergy NEEDS Verified 08/14/21 10:47 FOLLOW-UP NSAIDS (Non-Steroidal Allergy Upset Verified 08/14/21 10:47 Anti-Inflamma Stomach phenytoin Allergy NEEDS Verified 08/14/21 10:47 FOLLOW-UP topiramate Allergy NEEDS Verified 08/14/21 10:47 FOLLOW-UP LOXAGATE SODIUM Allergy NEEDS Uncoded 08/14/21 10:47 FOLLOW-UP Surgical History Hx of appendectomy Hx of cholecystectomy Social History household members: family Smoking Status: Current some day smoker tobacco type: e-cigarettes substance use type: does not use ROS ROS ED Constitutional Constitutional ED: Denies chills, fever(s), subjective, sweats or weight loss Eyes Eyes: Denies blurry vision, change in vision or diplopia ENT ENT ED: Reports rhinorrhea and sore throat; Denies ear pain Cardiovascular Cardiovascular: Denies chest pain, orthopnea, palpitations or paroxysmal nocturnal dyspnea Respiratory/Chest Respiratory/Chest: Reports cough; Denies dyspnea, dyspnea on exertion, orthopnea, paroxysmal nocturnal dyspnea or sputum Gastrointestinal Gastrointestinal: Reports diarrhea and nausea; Denies abdominal pain, constipation or vomiting Genitourinary Genitourinary ED: Denies dysuria, hematuria or urinary frequency Musculoskeletal Musculoskeletal: Denies arthralgias, myalgias or neck pain Integumentary Denies Abrasions or rash Neurologic Neurologic: Denies headache(s) or weakness Psychiatric Psychiatric: Denies anxiety or depression Endocrine Endocrinology: Denies polydipsia, polyphagia or polyuria Hematologic/Lymphatic Hematologic/Lymphatic: Denies anemia, easy bleeding or easy bruising EXAM Physical Exam Const Vital Signs: 08/28/21 20:17 Temperature 98.1 F Temperature Source Temporal Pulse Rate 66 Respiratory Rate 16 Blood Pressure 116/76 Blood Pressure Mean 89 Pulse Ox 99 Oxygen Delivery Method Room Air Positive well nourished, well developed and obese General Appearance ED: well developed and other Patient states he has lost approximately 20 to 30 pounds over the last month. ; Negative for pallor Nutritional Appearance: obese HEENT Reports TM's clear and dry mucous membranes Negative for trauma or tenderness Tympanic Membrane ED: Yes TM's clear Mouth ED: Yes dry mucous membranes Mouth: dry mucous membranes Eyes PERRL and EOMs intact bilaterally General Eye ED: Negative for pale conjunctiva or scleral icterus Neck no lymphadenopathy, supple and no JVD Chest Wall inspection of chest normal and palpation of chest normal Resp normal respiratory effort and clear to auscultation bilaterally Cardio regular rate, regular rhythm, S1 normal heart sound, S2 normal heart sound and no murmurs GI normal to inspection, nondistended, normoactive bowel sounds, non-tender and non-distended Palpation: soft Rectal Exam: other Other Details: There is no evidence of ventral or umbilical hernia. Unable to appreciate inguinal hernia. Back/Spine no CVA tenderness Cervical Spine: Negative for cervical spine tenderness Thoracic Spine / Upper Back: Negative for thoracic spinal tenderness or paraspinal muscle tenderness Extremity normal to inspection General Extremety ED: Negative for edema or tenderness General Extremity: Negative for edema Neuro oriented x3, CN's II-XII intact bilaterally and no sensory deficits noted Sensorium / Orientation: alert Motor Exam: strength 5/5 throughout Psych mental status grossly normal Skin no rashes or lesions noted, no wounds and skin turgor normal General Skin Exam: Negative for jaundice or pallor MDM MDM MDM Narrative Medical decision making narrative: Patient has viral-like symptoms need to rule out inflammatory bowel disorder or other causes for chronic diarrhea. Covid test was obtained since he has both GI and respiratory symptoms. Because of the amount of diarrhea he is reporting basic metabolic panel was obtained to assess renal function and potassium. Lab Data Attestation: I reviewed the patient's lab results. Lab results narrative: CBC is unremarkable. Creatinine is elevated 1.36. GFR is 63, however. Covid test was negative. Labs: Laboratory Results - last 24 hr 08/28/21 08/28/21 22:06 22:06 WBC 5.9 RBC 4.53 L Hgb 15.2 Hct 41.5 MCV 91.6 MCH 33.6 H MCHC 36.6 H RDW Std Deviation 40.3 RDW Coeff of Glenny 12.1 Plt Count 126 L MPV 11.9 Immature Gran % (Auto) 0.200 Neut % (Auto) 69.2 Lymph % (Auto) 19.3 [place] % (Auto) 8.8 Eos % (Auto) 2.0 Baso % (Auto) 0.5 Absolute Neuts (auto) 4.1 Absolute Lymphs (auto) 1.14 Nucleated RBC % 0 Platelet Estimate SLT DEC RBC Morphology N CHROM Anisocytosis RARE Macrocytosis RARE Sodium 142 Potassium 3.7 Chloride 112 H Carbon Dioxide 25.0 Anion Gap 5 BUN 12 Creatinine 1.36 H Estim Creat Clear Calc 84.05 Est GFR (MDRD) Af Amer 76 Est GFR (MDRD) Non-Af 63 BUN/Creatinine Ratio 8.8 L Glucose 93 Calcium 9.1 Discharge Plan Triage Chief Complaint: Nausea/Vomiting/Diarrhea ED Provider: Channing Victoria Dx/Rx/DC Orders Clinical Impression: Upper respiratory infection, Diarrhea, Dehydration, mild Prescriptions: No Action zonisamide 100 MG capsule 200 mg PO BID RF: 0 levetiracetam 750 MG tablet 1,500 mg PO BID RF: 0 omeprazole 20 MG capsule,delayed release(DR/EC) 20 mg PO DAILY RF: 0 buspirone 5 MG tablet 10 mg PO BID RF: 0 paroxetine HCl 10 MG tablet 20 mg PO DAILY RF: 0 clonazepam 0.5 mg tablet 0.5 mg PO QHS RF: 0 dicyclomine 10 mg capsule 10 mg PO TID PRN (Reason: Abdominal Discomfort) RF: 0 Primary Care Provider: Jerome Conrad Referrals: Jerome Conrad MD [Primary Care Provider] - 3-5 Days (Patient with diarrhea for greater than 2 weeks will need GI follow-up) Lenny Cramer DO [STAFF PHYSICIAN] - 1-2 Weeks (Call for appointment for further evaluation of your diarrhea) Disposition Disposition: Home, Self Care
[2021-08-28 23:26] VITALS: PULSE 50; RESP 16; O2SAT 100
== END 2021-08-28 23:27 | disposition home or self-care (01) ==
PROVIDERS: Emergency Provider Emergency Medicine; PCP Family Medicine; Visit Provider Emergency Medicine
DX: J06.9 Acute upper respiratory infection, unspecified (principal); R19.7 Diarrhea, unspecified; E86.0 Dehydration; F17.290 Nicotine dependence, other tobacco product, uncomplicated; E66.9 Obesity, unspecified; Z79.899 Other long term (current) drug therapy
CPT/HCPCS: 80048; 85025; 87426; 96360; 99285; J7030

== ENCOUNTER 2021-10-21 23:29 | Emergency (ER) | payer MEDICAID, SELFPAY ==
[2021-10-21 23:30] VITALS: TEMP 37.1; BMI 26.4
--- NOTE | 2021-10-22 00:03 | EKG12_ITS ---
Test Reason : [facility] Blood Pressure : / mmHG Vent. Rate : 073 BPM Atrial Rate : 073 BPM P-R Int : 158 ms QRS Dur : 102 ms QT Int : 368 ms P-R-T Axes : 027 -01 012 degrees QTc Int : 405 ms Normal sinus rhythm with sinus arrhythmia Normal ECG Confirmed by SANTI DALE, NO ([id number]), editor trade journal KEL OJEDA ([id number]) on 10/24/2021 11:30:34 AM Referred By: BALTA Confirmed By:NO HANCOCK MD
[2021-10-22 00:22] LABS: Absolute Lymphocyte Count 1.29 X10^3/uL (0.83-4.51); Absolute Neutrophil Count 2.8 X10^3/uL (2.0-7.7); Basophil# 0.03 X10^3/uL; Basophil% 0.6 % (0-1); Eosinophil# 0.11 X10^3/uL; Eosinophils% 2.4 % (0-5); Hematocrit 45.2 % (40-54); Lymphocyte # 1.29 X10^3/ul (0.83-4.51); Lymphocyte % 27.7 % (19-41); Mean Corp Hgb Conc 35.4 g/dL (32-36); Mean Corpuscular Hgb 32.2 pg (27.0-32.0); Mean Corpuscular Volume 90.9 fL (80-94); Mean Platelet Vol. 10.1 fl (6.2-12.0); Monocyte# 0.41 X10^3/uL; Monocyte% 8.8 % (0-10); NRBC Flagged by Analyzer 0 % (0-5); Neutrophil # 2.81 X10^3/uL (2.7-7.7); Neutrophil % 60.3 % (47-70); Platelet Count 195 K/mm3 (150-450); RBC Distribution Width CV 11.9 % (11.6-14.6); RBC Distribution Width SD 39.4 fl (35.1-43.9); Red Blood Count 4.97 M/mm3 (4.6-6.2); White Blood Count 4.7 K/mm3 (4.4-11.0)
[2021-10-22 00:33] LABS: Anion Gap 8 (5-15); BUN 7 mg/dL (7-18); BUN/Creat Ratio 5.1 RATIO (10-20); Calcium,Total 9.1 mg/dL (8.5-10.1); Chloride 113 mmol/L (98-107); Creatinine, Serum 1.38 mg/dL (0.70-1.30); EST Glomerular Filtration Rate 61 mL/min (>60); Est Glom Filt Rate - Afr Amer 74 mL/min (>60); Estimated Creatinine Clearance 82.83 ml/min; Glucose 130 mg/dL (74-106); Sodium Level 142 mmol/L (136-145)
[2021-10-22 00:43] LABS: Amphetamine Urine VISTA NEGATIVE (<1000 ng/mL); Barbiturate Urine VISTA NEGATIVE (< 200 ng/mL); Benzodiazepine Urine VISTA NEGATIVE (< 200 ng/mL); Cocaine Urine VISTA NEGATIVE (< 300 ng/mL); Ecstacy Urine VISTA NEGATIVE (< 500 ng/mL); Methadone Urine VISTA NEGATIVE (< 300 ng/mL); PCP Urine VISTA NEGATIVE (< 25 ng/mL); THC Urine VISTA POSITIVE (< 50 ng/mL); Vista UDS pH Range 5
[2021-10-22 01:10] LABS: Acetaminophen (Tylenol) Level < 2.0 ug/mL (10.0-30.0); Alcohol, Blood (Medical)-Serum < 3.0 mg/dL; Salicylate < 1.7 mg/dL (2.8-20.0)
--- NOTE | 2021-10-22 01:26 | EX.ED.DYSGE1 ---
HPI History of Present Illness Chief Complaint: Suicidal Narrative Narrative: Patient 36-year-old male with past medical history of schizophrenia and depression. He states he has been dealing with an increased amount of stress in his personal life over the past few weeks. He states that this time his depression is more severe than it normally is and his voices from his schizophrenia are telling him to hurt himself. He states that he tried to hang himself back in 2015 at which time he was admitted to a psychiatric hospital. He denies any attempt to hurt himself this evening or illicit drugs or alcohol use tonight. He states that he did have a knife on the counter and his plan was to cut himself. However patient realized that these feelings are abnormal and was concerned that he may need placed once again for his depression with suicidal ideation and comes to the hospital at this time for evaluation [facility] Medical History Bipolar 1 disorder Epilepsy Kidney stones PTSD (post-traumatic stress disorder) Schizophrenia Home Medications levetiracetam 1,500 mg PO BID 04/06/20 [History Last Taken 04/06/20 08:00 1500 mg] zonisamide 200 mg PO BID 04/06/20 [History Last Taken 04/06/20 08:00 200 mg] omeprazole 20 mg PO DAILY 04/07/20 [History Last Taken 04/06/20 08:00 20 mg] buspirone 10 mg PO BID 06/14/20 [History Last Taken Unknown] paroxetine HCl 20 mg PO DAILY 06/14/20 [History Last Taken Unknown] clonazepam 0.5 mg PO QHS 05/04/21 [History Last Taken Unknown] paliperidone [Invega] 1.5 mg PO DAILY 10/22/21 [History Last Taken Unknown] Allergy/AdvReac Type Severity Reaction Status Date / Time carbamazepine Allergy NEEDS Verified 08/14/21 10:47 FOLLOW-UP NSAIDS (Non-Steroidal Allergy Upset Verified 08/14/21 10:47 Anti-Inflamma Stomach phenytoin Allergy NEEDS Verified 08/14/21 10:47 FOLLOW-UP topiramate Allergy NEEDS Verified 08/14/21 10:47 FOLLOW-UP LOXAGATE SODIUM Allergy NEEDS Uncoded 08/14/21 10:47 FOLLOW-UP Surgical History Hx of appendectomy Hx of cholecystectomy Social History household members: family Smoking Status: Current some day smoker tobacco type: e-cigarettes substance use type: does not use ROS ROS ED Constitutional Constitutional ED: Denies chills or fever(s) ENT ENT ED: Denies sore throat Cardiovascular Cardiovascular: Denies chest pain Respiratory/Chest Respiratory/Chest: Denies cough or dyspnea Gastrointestinal Gastrointestinal: Denies abdominal pain, diarrhea, nausea or vomiting Genitourinary Genitourinary ED: Denies dysuria Musculoskeletal Musculoskeletal: Denies myalgias Integumentary Denies rash Neurologic Neurologic: Denies headache(s) Psychiatric Psychiatric: Reports depression, suicidal ideation and suicidal thoughts Hematologic/Lymphatic Hematologic/Lymphatic: Denies easy bleeding or easy bruising EXAM Physical Exam Const Vital Signs: 10/21/21 23:30 10/22/21 02:36 Temperature 98.8 F Temperature Source Temporal Pulse Rate 89 Respiratory Rate 18 Pulse Ox 100 Oxygen Delivery Method Room Air Positive well nourished and well developed General Appearance ED: well developed Eyes PERRL and EOMs intact bilaterally Neck supple Resp normal respiratory effort and clear to auscultation bilaterally Cardio regular rate and regular rhythm GI normal to inspection, nondistended, normoactive bowel sounds, non-tender, non-distended and no masses Auscultation: normoactive bowel sounds Palpation: soft Extremity normal to inspection Neuro oriented x3 and CN's II-XII intact bilaterally Sensorium / Orientation: alert Motor Exam: strength 5/5 throughout Psych Psych Narrative: Patient has a depressed/flat affect with positive suicidal ideation Mood & Affect: depressed Skin no rashes or lesions noted MDM MDM MDM Narrative Medical decision making narrative: Patient presented to the ER with stable vital. He reported increased stress in his life as well as hearing voices from his schizophrenia time to hurt himself. Moreover he does have a previous suicide attempt from 2016 and states that he had a knife next to him this evening while he was thinking about hurting himself. Based on these facts patient is high risk for self-harm and therefore I feel he will need placed in a psychiatric facility. A pink slip was filled out secondary to this and patient underwent a psychiatric screening exam. Lab work revealed no clinically significant finding. Crisis center was contacted and evaluated the patient and they agree he should be placed at this time. Patient is therefore medically cleared for placement/transfer in a psychiatric facility for an emergency medicine standpoint Lab Data Attestation: I reviewed the patient's lab results. Labs: Laboratory Results - last 24 hr 10/21/21 10/22/21 10/22/21 23:45 00:05 00:05 WBC 4.7 RBC 4.97 Hgb 16.0 Hct 45.2 MCV 90.9 MCH 32.2 H MCHC 35.4 RDW Std Deviation 39.4 RDW Coeff of Glenny 11.9 Plt Count 195 MPV 10.1 Immature Gran % (Auto) 0.200 Neut % (Auto) 60.3 Lymph % (Auto) 27.7 [place] % (Auto) 8.8 Eos % (Auto) 2.4 Baso % (Auto) 0.6 Absolute Neuts (auto) 2.8 Absolute Lymphs (auto) 1.29 Nucleated RBC % 0 Sodium 142 Potassium 3.0 L Chloride 113 H Carbon Dioxide 21.0 Anion Gap 8 BUN 7 Creatinine 1.38 H Estim Creat Clear Calc 82.83 Est GFR (MDRD) Af Amer 74 Est GFR (MDRD) Non-Af 61 BUN/Creatinine Ratio 5.1 L Glucose 130 H Calcium 9.1 Salicylates Urine Opiates Screen NEGATIVE Urine Methadone Screen NEGATIVE Acetaminophen Ur Barbiturates Screen NEGATIVE Ur Phencyclidine Scrn NEGATIVE Ur Amphetamines Screen NEGATIVE MDMA (Ecstasy) Screen NEGATIVE U Benzodiazepines Scrn NEGATIVE Urine Cocaine Screen NEGATIVE U Cannabinoids Screen POSITIVE H Ur Drug Screen Comment Ethyl Alcohol 10/22/21 00:05 WBC RBC Hgb Hct MCV MCH MCHC RDW Std Deviation RDW Coeff of Glenny Plt Count MPV Immature Gran % (Auto) Neut % (Auto) Lymph % (Auto) [place] % (Auto) Eos % (Auto) Baso % (Auto) Absolute Neuts (auto) Absolute Lymphs (auto) Nucleated RBC % Sodium Potassium Chloride Carbon Dioxide Anion Gap BUN Creatinine Estim Creat Clear Calc Est GFR (MDRD) Af Amer Est GFR (MDRD) Non-Af BUN/Creatinine Ratio Glucose Calcium Salicylates < 1.7 L Urine Opiates Screen Urine Methadone Screen Acetaminophen < 2.0 L Ur Barbiturates Screen Ur Phencyclidine Scrn Ur Amphetamines Screen MDMA (Ecstasy) Screen U Benzodiazepines Scrn Urine Cocaine Screen U Cannabinoids Screen Ur Drug Screen Comment Ethyl Alcohol < 3.0 Discharge Plan Triage Chief Complaint: Suicidal ED Provider: Benedict Reza Dx/Rx/DC Orders Clinical Impression: Depression with suicidal ideation, Schizophrenia Prescriptions: No Action zonisamide 100 MG capsule 200 mg PO BID RF: 0 levetiracetam 750 MG tablet 1,500 mg PO BID RF: 0 omeprazole 20 MG capsule,delayed release(DR/EC) 20 mg PO DAILY RF: 0 buspirone 5 MG tablet 10 mg PO BID RF: 0 paroxetine HCl 10 MG tablet 20 mg PO DAILY RF: 0 clonazepam 0.5 mg tablet 0.5 mg PO QHS RF: 0 paliperidone [Invega] 1.5 mg Tablet Extended Release 24hr 1.5 mg PO DAILY RF: 0 Primary Care Provider: Jerome Conrad Referrals: Jerome Conrad MD [Primary Care Provider] - Disposition Disposition: Psychiatric Hospital or Unit Discharge Location: [facility]
[2021-10-22 02:36] VITALS: PULSE 89; RESP 18; O2SAT 100
[2021-10-22 03:19] VITALS: BP 132/78; PULSE 77; RESP 15; TEMP 37.1; O2SAT 97
== END 2021-10-22 04:14 ==
PROVIDERS: Emergency Provider Emergency Medicine; PCP Family Medicine; Visit Provider Emergency Medicine
DX: F32.A Depression, unspecified (principal); F20.9 Schizophrenia, unspecified; R45.851 Suicidal ideations; F17.290 Nicotine dependence, other tobacco product, uncomplicated; Z79.899 Other long term (current) drug therapy
CPT/HCPCS: 36415; 80048; 80307; 80329; 82077; 85025; 87811; 93005; 99285; G0480

== ENCOUNTER 2021-12-08 17:38 | Emergency (ER) | payer MEDICAID, SELFPAY ==
[2021-12-08 17:40] VITALS: BP 114/75; PULSE 89; RESP 15; TEMP 36.8; O2SAT 98; BMI 33.1
[2021-12-08 17:43] VITALS: BP 114/75; PULSE 100; RESP 16; O2SAT 98
--- NOTE | 2021-12-08 18:28 | EX.ED.DYSGE1 ---
HPI History of Present Illness Chief Complaint: Seizure Informant: patient Onset/Context/Timing Onset: Today Context: Sudden Onset Timing: Intermittent and Lasts (4 minutes) Quality: Shaking Location: Generalized Worsened by: Nothing Relieved by: Nothing Narrative Narrative: Patient presents with a seizure that occurred today. Patient has a history of seizure disorder. Patient states he takes Keppra and Depakote for his seizures. Patient states he has not missed any doses of his medications. Patient states that his son witnessed the seizure. Patient does not remember any of the events around the seizure. Patient states that his son told him that his seizure lasted approximately 4 minutes. Patient states prior to the seizure he felt lightheaded, nauseated, and smelled burning rubber. Patient states this is similar to prior auras of his seizures. [facility] Medical History Bipolar 1 disorder Epilepsy Kidney stones PTSD (post-traumatic stress disorder) Schizophrenia Home Medications levetiracetam 1,500 mg PO BID 04/06/20 [History Last Taken 04/06/20 08:00 1500 mg] zonisamide 200 mg PO BID 04/06/20 [History Last Taken 04/06/20 08:00 200 mg] omeprazole 20 mg PO DAILY 04/07/20 [History Last Taken 04/06/20 08:00 20 mg] buspirone 10 mg PO BID 06/14/20 [History Last Taken Unknown] paroxetine HCl 20 mg PO DAILY 06/14/20 [History Last Taken Unknown] clonazepam 0.5 mg PO QHS 05/04/21 [History Last Taken Unknown] paliperidone [Invega] 1.5 mg PO DAILY 10/22/21 [History Last Taken Unknown] Allergy/AdvReac Type Severity Reaction Status Date / Time carbamazepine Allergy NEEDS Verified 12/08/21 17:39 FOLLOW-UP NSAIDS (Non-Steroidal Allergy Upset Verified 12/08/21 17:39 Anti-Inflamma Stomach phenytoin Allergy NEEDS Verified 12/08/21 17:39 FOLLOW-UP topiramate Allergy NEEDS Verified 12/08/21 17:39 FOLLOW-UP LOXAGATE SODIUM Allergy NEEDS Uncoded 12/08/21 17:39 FOLLOW-UP Surgical History Hx of appendectomy Hx of cholecystectomy Social History household members: family Smoking Status: Current some day smoker tobacco type: e-cigarettes substance use type: does not use ROS ROS ED Constitutional Constitutional ED: Denies chills or fever(s) Eyes Eyes: Denies blurry vision or change in vision ENT ENT ED: Reports rhinorrhea and sore throat Cardiovascular Cardiovascular: Denies chest pain or palpitations Respiratory/Chest Respiratory/Chest: Denies cough or dyspnea Gastrointestinal Gastrointestinal: Reports nausea; Denies vomiting Genitourinary Genitourinary ED: Denies dysuria or hematuria Musculoskeletal Musculoskeletal: Denies back pain or neck pain Integumentary Denies abscess or rash Neurologic Neurologic: Reports headache(s); Denies weakness Allergic/Immunologic Allergic/Immunologic ED: Denies mouth swelling or urticaria EXAM Physical Exam Const Vital Signs: 12/08/21 17:40 12/08/21 17:43 12/08/21 19:24 Temperature 98.3 F Temperature Source Temporal Pulse Rate 89 100 79 Respiratory Rate 15 16 16 Blood Pressure 114/75 114/75 121/67 H Blood Pressure Mean 88 88 85 Pulse Ox 98 98 99 Oxygen Delivery Method Room Air Room Air Room Air 12/08/21 20:07 Temperature Temperature Source Pulse Rate 85 Respiratory Rate 19 H Blood Pressure 119/65 Blood Pressure Mean 83 Pulse Ox 98 Oxygen Delivery Method Room Air Positive well nourished and well developed General Appearance ED: well developed and NAD HEENT Reports moist mucous membranes Neck supple and no JVD Resp normal respiratory effort and clear to auscultation bilaterally Cardio regular rate, regular rhythm and no murmurs GI normal to inspection, nondistended, normoactive bowel sounds and non-tender Palpation: soft Extremity normal to inspection General Extremety ED: Negative for edema or tenderness General Extremity: Negative for edema Neuro oriented x3, CN's II-XII intact bilaterally and no sensory deficits noted Sensorium / Orientation: alert Motor Exam: strength 5/5 throughout Psych mental status grossly normal Skin no rashes or lesions noted MDM MDM MDM Narrative Medical decision making narrative: CBC and basic metabolic profile were within normal limits. Valproic acid level was therapeutic at 50. Patient had no further seizure activity here. Patient was advised of his findings. Patient was instructed to follow-up with his primary care physician in 5 to 7 days. Patient understood and was agreeable with the plan. All questions were answered. Lab Data Attestation: I reviewed the patient's lab results. Labs: Laboratory Results - last 24 hr 12/08/21 12/08/21 12/08/21 18:30 18:30 18:30 WBC 4.7 RBC 4.41 L Hgb 14.4 Hct 40.6 MCV 92.1 MCH 32.7 H MCHC 35.5 RDW Std Deviation 39.7 RDW Coeff of Glenny 11.8 Plt Count 176 MPV 9.6 Immature Gran % (Auto) 0.600 Neut % (Auto) 56.9 Lymph % (Auto) 22.5 [place] % (Auto) 14.3 H Eos % (Auto) 5.1 H Baso % (Auto) 0.6 Absolute Neuts (auto) 2.7 Absolute Lymphs (auto) 1.05 Nucleated RBC % 0 Sodium 142 Potassium 3.4 L Chloride 112 H Carbon Dioxide 24.0 Anion Gap 6 BUN 10 Creatinine 0.99 Estim Creat Clear Calc 108.81 Est GFR (MDRD) Af Amer 109 Est GFR (MDRD) Non-Af 90 BUN/Creatinine Ratio 10.1 Glucose 86 Calcium 8.7 Valproic Acid 50 Discharge Plan Triage Chief Complaint: Seizure ED Provider: Boby Ramirez Dx/Rx/DC Orders Clinical Impression: Seizure, Epilepsy Instructions: ED Seizure, Recurrent (Adult) Prescriptions: No Action zonisamide 100 MG capsule 200 mg PO BID RF: 0 levetiracetam 750 MG tablet 1,500 mg PO BID RF: 0 omeprazole 20 MG capsule,delayed release(DR/EC) 20 mg PO DAILY RF: 0 buspirone 5 MG tablet 10 mg PO BID RF: 0 paroxetine HCl 10 MG tablet 20 mg PO DAILY RF: 0 clonazepam 0.5 mg tablet 0.5 mg PO QHS RF: 0 paliperidone [Invega] 1.5 mg Tablet Extended Release 24hr 1.5 mg PO DAILY RF: 0 Primary Care Provider: Jerome Conrad Referrals: Jerome Conrad MD [Primary Care Provider] - 3-5 Days Disposition Disposition: Home, Self Care
[2021-12-08 18:39] LABS: Absolute Lymphocyte Count 1.05 X10^3/uL (0.83-4.51); Absolute Neutrophil Count 2.7 X10^3/uL (2.0-7.7); Basophil# 0.03 X10^3/uL; Basophil% 0.6 % (0-1); Eosinophil# 0.24 X10^3/uL; Eosinophils% 5.1 % (0-5); Hematocrit 40.6 % (40-54); Hemoglobin 14.4 g/dL (13.0-16.5); Lymphocyte # 1.05 X10^3/ul (0.83-4.51); Lymphocyte % 22.5 % (19-41); Mean Corp Hgb Conc 35.5 g/dL (32-36); Mean Corpuscular Hgb 32.7 pg (27.0-32.0); Mean Corpuscular Volume 92.1 fL (80-94); Mean Platelet Vol. 9.6 fl (6.2-12.0); Monocyte# 0.67 X10^3/uL; Monocyte% 14.3 % (0-10); NRBC Flagged by Analyzer 0 % (0-5); Neutrophil # 2.65 X10^3/uL (2.7-7.7); Neutrophil % 56.9 % (47-70); Platelet Count 176 K/mm3 (150-450); RBC Distribution Width CV 11.8 % (11.6-14.6); RBC Distribution Width SD 39.7 fl (35.1-43.9); Red Blood Count 4.41 M/mm3 (4.6-6.2); White Blood Count 4.7 K/mm3 (4.4-11.0)
[2021-12-08 18:52] LABS: Anion Gap 6 (5-15); BUN 10 mg/dL (7-18); BUN/Creat Ratio 10.1 RATIO (10-20); Calcium,Total 8.7 mg/dL (8.5-10.1); Chloride 112 mmol/L (98-107); Creatinine, Serum 0.99 mg/dL (0.70-1.30); EST Glomerular Filtration Rate 90 mL/min (>60); Est Glom Filt Rate - Afr Amer 109 mL/min (>60); Estimated Creatinine Clearance 108.81 ml/min; Glucose 86 mg/dL (74-106); Potassium 3.4 mmol/L (3.5-5.1); Sodium Level 142 mmol/L (136-145)
[2021-12-08 18:56] LABS: Valproic Acid (Depakene) Level 50 ug/mL (50-100)
[2021-12-08 19:24] VITALS: BP 121/67; PULSE 79; RESP 16; O2SAT 99
[2021-12-08 20:07] VITALS: BP 119/65; PULSE 85; RESP 19; O2SAT 98
[2021-12-08 20:33] VITALS: BP 119/80; PULSE 93; RESP 16; O2SAT 97
== END 2021-12-08 20:37 | disposition home or self-care (01) ==
PROVIDERS: Emergency Provider Emergency Medicine; PCP Family Medicine; Visit Provider Emergency Medicine
DX: G40.909 Epilepsy, unspecified, not intractable, without status epilepticus (principal); F20.9 Schizophrenia, unspecified; F31.9 Bipolar disorder, unspecified; F17.290 Nicotine dependence, other tobacco product, uncomplicated; Z79.899 Other long term (current) drug therapy
CPT/HCPCS: 80048; 80164; 85025; 99285

== ENCOUNTER 2021-12-29 01:49 | Emergency (ER) | payer MEDICAID, SELFPAY ==
[2021-12-29 01:49] VITALS: PULSE 85; RESP 18; TEMP 36.9; O2SAT 97; BMI 33.9
[2021-12-29 01:56] VITALS: BP 118/71
[2021-12-29] MEDS: metroNIDAZOLE 500 MG Tablet PO (02:41)
--- NOTE | 2021-12-29 02:43 | ED.VIS.DENTA ---
HPI History of Present Illness Chief Complaint: Dental Informant: patient Narrative Narrative: Worsening upper gum pain for the past 2 days. History of dental decay from previous chewing of tobacco. PCP started him on amoxicillin 2 days ago. Dental appointment February 12. Using Tylenol and Aleve. However Aleve causes stomach upset. Denies rectal bleeding. Denies fevers. He is having sensitivities to hot and cold. History of epilepsy on medications. Prior similar symptoms: Yes PFSH PFSH Medical History Bipolar 1 disorder Diarrhea Epilepsy Kidney stones PTSD (post-traumatic stress disorder) Schizophrenia Home Medications levetiracetam 1,500 mg PO BID 04/06/20 [History Last Taken 04/06/20 08:00 1500 mg] zonisamide 200 mg PO BID 04/06/20 [History Last Taken 04/06/20 08:00 200 mg] omeprazole 20 mg PO DAILY 04/07/20 [History Last Taken 04/06/20 08:00 20 mg] buspirone 10 mg PO BID 06/14/20 [History Last Taken Unknown] paroxetine HCl 20 mg PO DAILY 06/14/20 [History Last Taken Unknown] clonazepam 0.5 mg PO QHS 05/04/21 [History Last Taken Unknown] paliperidone [Invega] 1.5 mg PO DAILY 10/22/21 [History Last Taken Unknown] lidocaine HCl 5 ml MUCOUS MEMBRANE Q6H PRN #100 ml 12/29/21 [Rx Last Taken Unknown] metronidazole 500 mg PO TID #20 tab 12/29/21 [Rx Last Taken Unknown] Allergy/AdvReac Type Severity Reaction Status Date / Time carbamazepine Allergy NEEDS Verified 12/08/21 17:39 FOLLOW-UP NSAIDS (Non-Steroidal Allergy Upset Verified 12/08/21 17:39 Anti-Inflamma Stomach phenytoin Allergy NEEDS Verified 12/08/21 17:39 FOLLOW-UP topiramate Allergy NEEDS Verified 12/08/21 17:39 FOLLOW-UP LOXAGATE SODIUM Allergy NEEDS Uncoded 12/08/21 17:39 FOLLOW-UP Surgical History Hx of appendectomy Hx of cholecystectomy Social History household members: family Smoking Status: Current some day smoker tobacco type: e-cigarettes substance use type: does not use ROS ROS ED Constitutional Constitutional ED: Denies chills, fever(s) or sweats Eyes Eyes: Denies change in vision ENT ENT ED: Reports other Details: Gingival pain ; Denies dysphagia or sore throat Cardiovascular Cardiovascular: Denies chest pain, leg edema, palpitations or racing heartbeat Respiratory/Chest Respiratory/Chest: Denies cough, dyspnea or dyspnea on exertion Gastrointestinal Gastrointestinal: Denies abdominal pain, diarrhea, nausea or vomiting Genitourinary Genitourinary ED: Denies dysuria, hematuria or urinary frequency Musculoskeletal Musculoskeletal: Denies back pain, extremity pain or neck pain Integumentary Denies rash or wounds Neurologic Neurologic: Denies headache(s), paresthesias or weakness EXAM Physical Exam Const Vital Signs: 12/29/21 01:49 12/29/21 01:56 Temperature 98.4 F Temperature Source Oral Pulse Rate 85 Respiratory Rate 18 Blood Pressure 118/71 Blood Pressure Mean 86 Pulse Ox 97 Oxygen Delivery Method Room Air Positive well nourished and well developed General Appearance ED: well developed and NAD HEENT Reports moist mucous membranes HEENT Narrative: Oral exam diffuse dental decay at the bases of majority of teeth. Upper gums with erythema and inflammation there is no active bleeding. No focal abscess. No sublingual edema. Airway patent. normocephalic and atraumatic Eyes PERRL, EOMs intact bilaterally and conjunctivae normal General Eye ED: Yes normal appearance of both eyes Neck no lymphadenopathy and supple General: Negative for tenderness Chest Wall Chest: Negative for tenderness Resp normal respiratory effort and normal air movement Effort and Inspection: symmetric chest movement; Negative for respiratory distress Cardio regular rate, regular rhythm and no murmurs Peripheral Pulses: pulses 2+ throughout GI normal to inspection, nondistended, normoactive bowel sounds and non-tender Palpation: Negative for guarding or rebound tenderness present Back/Spine no CVA tenderness and no thoracic nor lumbar tenderness Extremity normal to inspection General Extremety ED: Negative for edema or tenderness General Extremity: Negative for edema Neuro oriented x3 and no sensory deficits noted Sensorium / Orientation: awake and alert Skin no rashes or lesions noted and no wounds MDM MDM MDM Narrative Medical decision making narrative: Patient afebrile vital stable. Exam diffuse dental decay with gingivitis. He is currently amoxicillin I will add Flagyl for coverage for potential necrotizing gingivitis. He states he does not drink alcohol. He is nontoxic. He is also provided viscous lidocaine to swish and spit to assist with topical pain control. He will continue Tylenol and avoid NSAIDs due to stomach upset. Discussed dental follow-up for definitive treatment. All questions were answered. Discharge Plan Triage Chief Complaint: Dental ED Provider: Pepito De La Cruz Dx/Rx/DC Orders Clinical Impression: Acute gingivitis, Dental decay Instructions: Periodontal Disease ..., Understanding Gingivitis Prescriptions: New metronidazole 500 mg tablet 500 mg PO TID Qty: 20 RF: 0 lidocaine HCl 2 % solution 5 ml mucous membrane Q6H PRN (Reason: pain) Qty: 100 RF: 0 No Action zonisamide 100 MG capsule 200 mg PO BID RF: 0 levetiracetam 750 MG tablet 1,500 mg PO BID RF: 0 omeprazole 20 MG capsule,delayed release(DR/EC) 20 mg PO DAILY RF: 0 buspirone 5 MG tablet 10 mg PO BID RF: 0 paroxetine HCl 10 MG tablet 20 mg PO DAILY RF: 0 clonazepam 0.5 mg tablet 0.5 mg PO QHS RF: 0 paliperidone [Invega] 1.5 mg Tablet Extended Release 24hr 1.5 mg PO DAILY RF: 0 Primary Care Provider: Jerome Conrad Referrals: Jerome Conrad MD [Primary Care Provider] - Activity Restrictions/Additional Instructions: Continue amoxicillin, take Flagyl as prescribed. Follow-up with your dentist for definitive treatment. Disposition Disposition: Home, Self Care Discharge Date/Time: 12/29/21 02:44
== END 2021-12-29 02:44 | disposition home or self-care (01) ==
PROVIDERS: Emergency Provider Emergency Medicine; PCP Family Medicine; Visit Provider Emergency Medicine
DX: K05.00 Acute gingivitis, plaque induced (principal); K02.9 Dental caries, unspecified; F17.290 Nicotine dependence, other tobacco product, uncomplicated
CPT/HCPCS: 99283

== ENCOUNTER 2023-03-10 09:23 | Emergency (ER) | payer MEDICAID, SELFPAY ==
[2023-03-10] VITALS (8 sets, daily range): BP systolic 106–126; BP diastolic 67–80; PULSE 64–72; RESP 12–18; TEMP 36.1; O2SAT 98; BMI 33.7
[2023-03-10 09:54] LABS: Basophil# 0.03 X10^3/uL; Basophil% 0.5 % (0-1); Eosinophils% 3.4 % (0-5); Hematocrit 43.7 % (40-54); Hemoglobin 15.1 g/dL (13.0-16.5); Lymphocyte % 34.1 % (19-41); Mean Corp Hgb Conc 34.6 g/dL (32-36); Mean Corpuscular Volume 95.6 fL (80-94); Mean Platelet Vol. 10.2 fl (6.2-12.0); Monocyte# 0.59 X10^3/uL; Monocyte% 10.1 % (0-10); NRBC Flagged by Analyzer 0 % (0-5); Neutrophil # 3.02 X10^3/uL (2.7-7.7); Neutrophil % 51.6 % (47-70); Platelet Count 155 K/mm3 (150-450); RBC Distribution Width CV 11.4 % (11.6-14.6); RBC Distribution Width SD 39.7 fl (35.1-43.9); Red Blood Count 4.57 M/mm3 (4.6-6.2); White Blood Count 5.9 K/mm3 (4.4-11.0)
[2023-03-10 10:10] LABS: Anion Gap 5 (5-15); BUN 10 mg/dL (7-18); BUN/Creat Ratio 7.9 RATIO (10-20); Calcium,Total 9.2 mg/dL (8.5-10.1); Chloride 109 mmol/L (98-107); Creatinine, Serum 1.26 mg/dL (0.70-1.30); EST Glomerular Filtration Rate 68 mL/min (>60); Est Glom Filt Rate - Afr Amer 82 mL/min (>60); Estimated Creatinine Clearance 87.25 ml/min; Glucose 102 mg/dL (74-106); Potassium 3.4 mmol/L (3.5-5.1); Sodium Level 139 mmol/L (136-145)
--- NOTE | 2023-03-10 10:12 | EDS_ITS ---
HPI HPI - Psych History of Present Illness Chief Complaint: Suicidal Informant: patient Onset/Context/Timing Onset: Days (4) Context: Gradual Onset Timing: Continuous Worsened by: - (Stress) Relieved by: Nothing Associated Symptoms Associated Symptoms - Psych: Positive for Depressed, Change in sleeping, Vences icidal Thoughts and Auditory Hallucinations; Negative for Visual Hallucinations Specific plan (suicidal thought): Hanging self, cutting self Narrative Narrative: Patient presents with depression and suicidal ideations that have been getting worse over the last 4 days. Patient states he has had thoughts of hanging himself and cutting himself. Patient states he is hearing voices which are telling him to harm himself. Patient states he has had increased stress over the last 4 days. Patient admits to decrease in sleep. Patient also states he has been feeling hopeless. Patient states it started with depression and then progressed to suicidal ideations. Patient denies any specific trigger. [facility] Medical History Bipolar 1 disorder Diarrhea Epilepsy Kidney stones PTSD (post-traumatic stress disorder) Schizophrenia Home Medications levetiracetam 750 mg tablet 1,500 mg PO BID seizures 04/06/20 [History Last Taken 04/06/20 08:00 1500 mg] zonisamide 100 mg capsule 200 mg PO BID seizures 04/06/20 [History Last Taken 04/06/20 08:00 200 mg] omeprazole 20 mg capsule,delayed release 20 mg PO DAILY stomach 04/07/20 [His tory Last Taken 04/06/20 08:00 20 mg] buspirone 5 mg tablet 20 mg PO BID 06/14/20 [History Last Taken Unknown] clonazepam 0.5 mg tablet 0.5 mg PO QHS 05/04/21 [History Last Taken Unknown] paliperidone 1.5 mg tablet,extended release 24 hr (Invega) 1.5 mg PO DAILY 10/22/21 [History Last Taken Unknown] divalproex 500 mg tablet,delayed release 500 mg PO Q12H 03/10/23 [History Last Taken Unknown] hydroxyzine pamoate 25 mg capsule 25 mg PO BID PRN anxiety 03/10/23 [History Last Taken Unknown] mometasone-formoterol HFA 100 mcg-5 mcg/actuation aerosol inhaler (Dulera) 2 puff inhalation Q12H 03/10/23 [History Last Taken Unknown] paliperidone 3 mg tablet,extended release 24 hr 9 mg PO .QAM 03/10/23 [History Last Taken Unknown] trazodone 50 mg tablet 100 mg PO QHS 03/10/23 [History Last Taken Unknown] Allergy/AdvReac Type Severity Reaction Status Date / Time carbamazepine Allergy NEEDS Verified 03/10/23 09:25 FOLLOW-UP loxapine [From Loxitane] Allergy NEEDS Verified 03/10/23 09:25 FOLLOW-UP NSAIDS (Non-Steroidal Allergy Upset Verified 03/10/23 09:25 Anti-Inflamma Stomach phenytoin Allergy NEEDS Verified 03/10/23 09:25 FOLLOW-UP topiramate Allergy NEEDS Verified 03/10/23 09:25 FOLLOW-UP Surgical History Hx of appendectomy Hx of cholecystectomy Social History household members: family Smoking Status: Current some day smoker tobacco type: e-cigarettes substance use type: does not use ROS ROS ED Constitutional Constitutional ED: Denies chills or fever(s) Eyes Eyes: Denies blurry vision or change in vision ENT ENT ED: Denies rhinorrhea or sore throat Cardiovascular Cardiovascular: Denies chest pain or palpitations Respiratory/Chest Respiratory/Chest: Denies cough or dyspnea Gastrointestinal Gastrointestinal: Denies nausea or vomiting Genitourinary Genitourinary ED: Denies dysuria or hematuria Musculoskeletal Musculoskeletal: Denies back pain or neck pain Integumentary Denies abscess or rash Neurologic Neurologic: Denies headache(s) or weakness Psychiatric Psychiatric: Reports depression, suicidal ideation and suicidal thoughts Allergic/Immunologic Allergic/Immunologic ED: Denies mouth swelling or urticaria EXAM Physical Exam Const Vital Signs: 03/10/23 09:25 03/10/23 10:24 03/10/23 11:24 Temperature 96.9 F L Temperature Source Temporal Pulse Rate 72 Respiratory Rate 12 18 18 Blood Pressure 126/80 H Blood Pressure Mean 95 Pulse Ox 98 Oxygen Delivery Method Room Air 03/10/23 12:08 03/10/23 12:34 03/10/23 13:03 Temperature Temperature Source Pulse Rate 64 Respiratory Rate 16 18 16 Blood Pressure 106/67 Blood Pressure Mean 80 Pulse Ox 98 Oxygen Delivery Method Room Air Positive well nourished and well developed General Appearance ED: well developed and NAD HEENT Reports moist mucous membranes Neck supple and no JVD Resp normal respiratory effort and clear to auscultation bilaterally Cardio regular rate, regular rhythm and no murmurs GI normal to inspection, nondistended, normoactive bowel sounds and non-tender Palpation: soft Extremity normal to inspection General Extremety ED: Negative for edema or tenderness General Extremity: Negative for edema Neuro oriented x3, CN's II-XII intact bilaterally and no sensory deficits noted Sensorium / Orientation: alert Motor Exam: strength 5/5 throughout Psych mental status grossly normal Appearance: grossly normal Attitude: calm Activity / Motor Behavior: appropriate eye contact Mood & Affect: depressed and flat affect Thought Content: suicidality, No homicidality and hallucination(s) Positive for auditory Skin no rashes or lesions noted MDM MDM MDM Narrative Medical decision making narrative: Differential diagnosis depression, suicidal ideation, valproic acid toxicity, electrolyte abnormality, and substance abuse. Basic screening labs will be obtained. CBC will be obtained to assess for leukocytosis and anemia. Basic metabolic profile will be obtained to assess for electrolyte abnormality and renal function. Valproic acid level will be obtained to assess for valproic acid toxicity. Serum alcohol level will be obtained to assess for alcohol intoxication. Urine tox screen will be obtained to assess for substance abuse. COVID-19 rapid antigen will be obtained to assess for COVID-19 infection. Lab Data Attestation: I reviewed the patient's lab results. Lab results narrative: CBC was reviewed and was within normal limits. Basic metabolic profile was reviewed and was within normal limits. Valproic acid level was reviewed and was only slightly elevated at 109. Serum alcohol level was reviewed and was less than 3.0. Urine tox screen was reviewed and was positive for cannabinoids. Labs: Laboratory Results - last 24 hr 03/10/23 03/10/23 09:35 09:57 WBC 5.9 RBC 4.57 L Hgb 15.1 Hct 43.7 MCV 95.6 H MCH 33.0 H MCHC 34.6 RDW Std Deviation 39.7 RDW Coeff of [place] 11.4 L Plt Count 155 MPV 10.2 Immature Gran % (Auto) 0.300 Neut % (Auto) 51.6 Lymph % (Auto) 34.1 [place] % (Auto) 10.1 H Eos % (Auto) 3.4 Baso % (Auto) 0.5 Absolute Neuts (auto) 3.0 Absolute Lymphs (auto) 2.00 Nucleated RBC % 0 Sodium 139 Potassium 3.4 L Chloride 109 H Carbon Dioxide 25.0 Anion Gap 5 BUN 10 Creatinine 1.26 Estim Creat Clear Calc 87.25 Est GFR (MDRD) Af Amer 82 Est GFR (MDRD) Non-Af 68 BUN/Creatinine Ratio 7.9 L Glucose 102 Calcium 9.2 Urine Opiates Screen NEGATIVE Urine Methadone Screen NEGATIVE Ur Barbiturates Screen NEGATIVE Valproic Acid 109 H Ur Phencyclidine Scrn NEGATIVE Ur Amphetamines Screen NEGATIVE MDMA (Ecstasy) Screen NEGATIVE U Benzodiazepines Scrn NEGATIVE Urine Cocaine Screen NEGATIVE U Cannabinoids Screen POSITIVE H Ur Drug Screen Comment Ethyl Alcohol < 3.0 Management Discussion w/another healthcare provider: machine lay out worker/Case management Treatment and Re-Evaluation Narrative: Patient is medically cleared for psychiatric evaluation. machine lay out worker was in to evaluate the patient and agreed that the patient should be placed in a psychiatric facility. machine lay out worker is attempting to place the patient in a psychiatric facility. [place] slip was placed on the chart. Patient is agreeable with the plan. All questions were answered. Care of the patient will be turned over to the oncoming physician pending psychiatric placement. Discharge Plan Triage Chief Complaint: Suicidal ED Provider: Boby Ramirez Dx/Rx/DC Orders Clinical Impression: Suicidal ideation, Depression Prescriptions: No Action zonisamide 100 MG capsule 200 mg PO BID levetiracetam 750 MG tablet 1,500 mg PO BID omeprazole 20 MG capsule,delayed release(DR/EC) 20 mg PO DAILY buspirone 5 MG tablet 20 mg PO BID clonazepam 0.5 mg tablet 0.5 mg PO QHS paliperidone [Invega] 1.5 mg Tablet Extended Release 24hr 1.5 mg PO DAILY Dulera 100-5 mcg/actuation HFA aerosol inhaler 2 puff INHALATION Q12H Patient Comments: inhale 2 puffs by mouth twice a day trazodone 50 mg tablet 100 mg PO QHS Patient Comments: TAKE 1 TABLET BY MOUTH EVERY DAY AT BEDTIME divalproex 500 mg tablet,delayed release (DR/EC) 500 mg PO Q12H Patient Comments: Take 1 Tablet By Oral Route 2 times per day paliperidone 3 mg tablet extended release 24hr 9 mg PO .QAM Patient Comments: TAKE 1 TABLET BY MOUTH EVERY DAY IN THE MORNING hydroxyzine pamoate 25 mg capsule 25 mg PO BID PRN (Reason: anxiety) Patient Comments: Take 1 Capsule By Oral Route 2 times per day Primary Care Provider: Jerome Conrad Referrals: Jerome Conrad MD [Primary Care Provider] - Disposition Disposition: Psychiatric Hospital or Unit
[2023-03-10 10:28] LABS: Amphetamine Urine VISTA NEGATIVE (<1000 ng/mL); Barbiturate Urine VISTA NEGATIVE (< 200 ng/mL); Benzodiazepine Urine VISTA NEGATIVE (< 200 ng/mL); Cocaine Urine VISTA NEGATIVE (< 300 ng/mL); Ecstacy Urine VISTA NEGATIVE (< 500 ng/mL); Methadone Urine VISTA NEGATIVE (< 300 ng/mL); PCP Urine VISTA NEGATIVE (< 25 ng/mL); THC Urine VISTA POSITIVE (< 50 ng/mL); Vista UDS pH Range 7
[2023-03-10 10:31] LABS: Alcohol, Blood (Medical)-Serum < 3.0 mg/dL
[2023-03-10 10:39] LABS: Valproic Acid (Depakene) Level 109 ug/mL (50-100)
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
--- NOTE | 2023-03-10 15:44 | ED.RN ---
faxed ekg to [facility]
--- NOTE | 2023-03-10 18:19 | CM.ED ---
Social Work SW referred patient to [facility] and accepting information provided to nursing staff by [facility]. SW contacted [facility] per patient request to notify them of hospitalization due to upcoming counseling appointment. Jessie Rose ICE SKATER, BRAKE COUPLER DINKEY
== END 2023-03-10 16:48 ==
PROVIDERS: Emergency Provider Emergency Medicine; PCP Family Medicine; Visit Provider Emergency Medicine
DX: R45.851 Suicidal ideations (principal); F32.A Depression, unspecified; F17.290 Nicotine dependence, other tobacco product, uncomplicated; Z79.899 Other long term (current) drug therapy
CPT/HCPCS: 80048; 80164; 80307; 82077; 85025; 87426; 93005; 99285

== ENCOUNTER → 2023-04-29 | Outpatient (CLI) | payer MEDICAID, SELFPAY ==
[2023-04-29 10:32] LABS: Hematocrit 45.5 % (40-54); Mean Platelet Vol. 10.4 fl (6.2-12.0); Platelet Count 155 K/mm3 (150-450); RBC Distribution Width CV 11.9 % (11.6-14.6); RBC Distribution Width SD 43.5 fl (35.1-43.9); Red Blood Count 4.55 M/mm3 (4.6-6.2); White Blood Count 5.9 K/mm3 (4.4-11.0)
[2023-04-29 11:16] LABS: AST(SGOT) 19 U/L (15-37); Alanine Aminotransfer ALT/SGPT 51 U/L (16-61); Albumin, Serum 3.9 g/dL (3.2-5.0); Alkaline Phosphatase 57 U/L (45-117); Anion Gap 7 (5-15); BUN 15 mg/dL (7-18); BUN/Creat Ratio 12.3 RATIO (10-20); Chloride 112 mmol/L (98-107); Creatinine, Serum 1.22 mg/dL (0.70-1.30); EST Glomerular Filtration Rate 70 mL/min (>60); Est Glom Filt Rate - Afr Amer 85 mL/min (>60); Globulin 3.8 g/dL (2.2-4.2); Glucose 105 mg/dL (74-106); Magnesium 2.6 mg/dL (1.6-2.6); Potassium 3.2 mmol/L (3.5-5.1); Protein, Total 7.7 g/dL (6.4-8.2); Sodium Level 142 mmol/L (136-145)
[2023-04-29 11:24] LABS: Valproic Acid (Depakene) Level 69 ug/mL (50-100)
[2023-04-29 11:30] LABS: Amphetamine Urine VISTA NEGATIVE (<1000 ng/mL); Barbiturate Urine VISTA NEGATIVE (< 200 ng/mL); Benzodiazepine Urine VISTA NEGATIVE (< 200 ng/mL); Cocaine Urine VISTA NEGATIVE (< 300 ng/mL); Ecstacy Urine VISTA POSITIVE (< 500 ng/mL); Methadone Urine VISTA NEGATIVE (< 300 ng/mL); PCP Urine VISTA NEGATIVE (< 25 ng/mL); THC Urine VISTA POSITIVE (< 50 ng/mL); Vista UDS pH Range 5
[2023-05-01 10:09] LABS: KEPPRA (LEVETIRACETAM) 16.9 ug/mL (10.0-40.0)
== END | disposition home or self-care (01) ==
PROVIDERS: PCP Family Medicine; Referring Provider Psychiatry & Neurology Neurology; Visit Provider Psychiatry & Neurology Neurology
DX: G47.69 Other sleep related movement disorders (principal); F31.9 Bipolar disorder, unspecified; G40.909 Epilepsy, unspecified, not intractable, without status epilepticus
CPT/HCPCS: 36415; 80053; 80164; 80177; 80307; 82140; 83735; 85027

== ENCOUNTER → 2023-11-26 | Outpatient (CLI) | payer MEDICAID, SELFPAY ==
[2023-11-26 15:00] LABS: Hematocrit 45.1 % (40-54); Hemoglobin 15.5 g/dL (13.0-16.5); Mean Corp Hgb Conc 34.4 g/dL (32-36); Mean Corpuscular Hgb 33.3 pg (27.0-32.0); Mean Corpuscular Volume 96.8 fL (80-94); Mean Platelet Vol. 10.3 fl (6.2-12.0); Platelet Count 129 K/mm3 (150-450); RBC Distribution Width CV 11.9 % (11.6-14.6); Red Blood Count 4.66 M/mm3 (4.6-6.2); White Blood Count 6.5 K/mm3 (4.4-11.0)
[2023-11-26 15:31] LABS: Hemoglobin A1c 4.6 % (3.8-5.6)
[2023-11-26 15:33] LABS: Valproic Acid (Depakene) Level 94 ug/mL (50-100)
[2023-11-26 15:35] LABS: Vitamin D,25 Hydroxy 14.3 ng/mL
[2023-11-26 15:37] LABS: ALB/GLOB Ratio 1.1 RATIO (0.9-2.4); AST(SGOT) 17 U/L (15-37); Alanine Aminotransfer ALT/SGPT 50 U/L (16-61); Albumin, Serum 3.8 g/dL (3.2-5.0); Alkaline Phosphatase 49 U/L (45-117); Anion Gap 5 (5-15); BUN 11 mg/dL (7-18); BUN/Creat Ratio 9.1 RATIO (10-20); Calcium,Total 9.3 mg/dL (8.5-10.1); Chloride 110 mmol/L (98-107); Creatinine, Serum 1.21 mg/dL (0.70-1.30); EST Glomerular Filtration Rate 71 mL/min (>60); Est Glom Filt Rate - Afr Amer 86 mL/min (>60); Globulin 3.5 g/dL (2.2-4.2); Glucose 108 mg/dL (74-106); Potassium 3.9 mmol/L (3.5-5.1); Protein, Total 7.3 g/dL (6.4-8.2); Sodium Level 141 mmol/L (136-145)
== END | disposition home or self-care (01) ==
LOC: LAB 14:26
PROVIDERS: PCP Family Medicine; Referring Provider Counselor Mental Health; Visit Provider Counselor Mental Health
DX: E55.9 Vitamin D deficiency, unspecified (principal); Z79.899 Other long term (current) drug therapy
CPT/HCPCS: 36415; 80053; 80164; 82140; 82306; 83036; 85027

== ENCOUNTER → 2024-07-19 | Outpatient (CLI) | payer MEDICAID, SELFPAY ==
[2024-07-22 17:07] LABS: KEPPRA (LEVETIRACETAM) 17.8 ug/mL (10.0-40.0)
== END | disposition home or self-care (01) ==
PROVIDERS: PCP Family Medicine; Referring Provider Psychiatry & Neurology Neurology; Visit Provider Psychiatry & Neurology Neurology
DX: G40.909 Epilepsy, unspecified, not intractable, without status epilepticus (principal)
CPT/HCPCS: 36415; 80177; 82140

== ENCOUNTER → 2024-09-17 | Outpatient (CLI) | payer MEDICAID, SELFPAY ==
[2024-09-17 12:58] LABS: ALB/GLOB Ratio 1.7 RATIO (0.9-2.4); AST(SGOT) 17 U/L (<=37); Alanine Aminotransfer ALT/SGPT 24 U/L (<=46); Albumin, Serum 4.5 g/dL (3.5-5.0); Alkaline Phosphatase 51 U/L (40-129); Anion Gap 10 (5-15); BUN 11 mg/dL (4-19); BUN/Creat Ratio 9.7 RATIO (10-20); Calcium 9.5 mg/dL (7.6-11.0); Carbon Dioxide 24.4 mmol/L (22.0-29.0); Chloride 107 mmol/L (96-108); Creatinine, Serum 1.08 mg/dL (0.70-1.20); EST Glomerular Filtration Rate 89 (>60); Globulin 2.7 g/dL (2.2-4.2); Glucose 106 mg/dL (70-99); Protein, Total 7.2 g/dL (5.9-8.4); Sodium Level 141 mmol/L (133-145)
[2024-09-17 13:35] LABS: Ammonia 27.6 umol/L (16-60)
[2024-09-17 13:40] LABS: Hematocrit 40.5 % (40-54); Mean Corp Hgb Conc 34.6 g/dL (32-36); Mean Corpuscular Hgb 33.9 pg (27.0-32.0); Mean Corpuscular Volume 98.1 fL (80-94); Mean Platelet Vol. 10.7 fl (6.2-12.0); Platelet Count 157 K/mm3 (150-450); RBC Distribution Width CV 11.9 % (11.6-14.6); Red Blood Count 4.13 M/mm3 (4.6-6.2); White Blood Count 5.7 K/mm3 (4.4-11.0)
[2024-09-20 06:07] LABS: KEPPRA (LEVETIRACETAM) 13.7 ug/mL (10.0-40.0)
== END | disposition home or self-care (01) ==
PROVIDERS: PCP Family Medicine; Referring Provider Psychiatry & Neurology Neurology; Visit Provider Psychiatry & Neurology Neurology
DX: G40.909 Epilepsy, unspecified, not intractable, without status epilepticus (principal)
CPT/HCPCS: 36415; 80053; 80177; 82140; 85027

== ENCOUNTER → 2024-11-10 | Outpatient (CLI) | payer MEDICAID, SELFPAY ==
[2024-11-10 13:45] LABS: Valproic Acid (Depakene) Level 95 ug/mL (50-100)
[2024-11-10 13:46] LABS: AST(SGOT) 17 U/L (<=37); Alanine Aminotransfer ALT/SGPT 24 U/L (<=46); Albumin, Serum 4.6 g/dL (3.5-5.0); Alkaline Phosphatase 56 U/L (40-129); Bilirubin, Direct 0.15 mg/dL (0.00-0.30); Protein, Total 7.6 g/dL (5.9-8.4)
== END | disposition home or self-care (01) ==
LOC: LAB 12:45
PROVIDERS: PCP Family Medicine
DX: Z51.81 Encounter for therapeutic drug level monitoring (principal); Z79.899 Other long term (current) drug therapy
CPT/HCPCS: 36415; 80076; 80164